=== PATIENT | female | born 1950 | race Caucasian/White ===

== ENCOUNTER → 2016-12-29 | Outpatient (CLI) | payer MEDICARE, OTHER ==
--- NOTE | 2016-12-29 11:06 | MR ---
EXAMINATION TYPE: MR thoracic spine wo con DATE OF EXAM: 12/29/2016 10:05 AM COMPARISON: NONE HISTORY: Tsp pain Standard multiplanar, multisequence MRI departmental protocol Multiplanar, multisequence images of the thoracic spine were acquired. Diffusion weighted imaging was performed. FINDINGS: There is a severe scoliotic curvature of the spine. There is a large thoracic aortic aneurysm measuring 5.6 x 5.1 cm. I could not exclude a dissection. R eport immediately called to referring clinician. Stat CT chest recommended. There is multilevel severe degenerative disc disease virtually at all levels. At T2-T3 there is foraminal encroachment on the right secondary to hypertrophic changes. At T3-T4 there is bilateral mild foraminal encroachment. No canal stenosis or disc herniation. At T4-T5 severe degenerative disc disease and disc bulging but no focal herniation or canal stenosis. Neural foramina patent. At T5-T9 there is disc bulging but no canal stenosis or focal herniation. At T11-T12 there severe degenerative disc disease and right-sided disc protrusion with facet arthropa thy and severe right-sided foraminal encroachment. Remaining levels demonstrate no definite disc herniation or canal stenosis. Spinal cord demonstrate m aintains normal signal. Hiatal hernia noted. IMPRESSION: 1. Severe multilevel degenerative disc disease with scoliosis. Most marked findings at T11-T12 with r ight-sided paracentral disc protrusion and facet arthropathy and severe right-sided encroachment. 2. Large thoracic aortic aneurysm measuring greater than 5 cm. A dissection is suggested image #5.. S tat CT recommended. Report telephoned to the referring clinician.
== END | disposition home or self-care (01) ==
LOC: RADMRIMAIN 09:11
PROVIDERS: ATTEND Psychiatry & Neurology Pain Medicine
DX: M51.24 Other intervertebral disc displacement, thoracic region (principal); M51.34 Other intervertebral disc degeneration, thoracic region; M46.94 Unspecified inflammatory spondylopathy, thoracic region; M41.9 Scoliosis, unspecified
CPT/HCPCS: 72146

== ENCOUNTER → 2016-12-30 | Outpatient (CLI) | payer MEDICARE, OTHER ==
--- NOTE | 2016-12-30 11:44 | MR ---
EXAMINATION TYPE: MR lumbar spine wo con DATE OF EXAM: 12/30/2016 9:58 AM COMPARISON: 11/13/2010 and 06/15/2009 HISTORY: lumbago TECHNIQUE: T1 and T2 axial and sagittal images of the lumbar spine are submitted. FINDINGS: There is no abnormal signal seen within the visualized spinal cord or paraspinal soft tissu es. There is a severe scoliotic curvature with severe multilevel degenerative disc disease. Distal th oracic aorta measures 5.6 cm. Aortic dissection not excluded. Report is been previously slightly tele phoned to the referring physician. Within the abdomen also suspicion for an aneurysm maximal dimensio n of 4.8 cm. At T12-L1 there is no Canal stenosis. Neural foramina are patent no disc herniation. At L1-2 there is there is a vacuum disc. Central broad-based disc bulging with moderate effacement of thecal sac and facet arthropathy. Bilateral foraminal encroachment noted in mild canal stenosis. At L2-3 there is severe degenerative disc disease with vacuum disc and marked facet arthropathy. Resu lts in bilateral foraminal encroachment greater on the left. Mild disc bulging results in borderline canal stenosis. At L3-4 there is severe degenerative disc disease. Facet arthropathy and disc bulging results in left lateral recess stenosis and severe left-sided foraminal encroachment. There is mild canal stenosis. At L4-5 there is facet arthropathy. There is diffuse circumferential disc bulging and marked hypertro phic changes with moderate to severe bilateral foraminal encroachment and canal stenosis. There is se russel right-sided foraminal encroachment with suspected nerve root impingement. There is severe latera l compression of the thecal sac on the right secondary to the scoliosis and hypertrophic changes. Sig nificant canal stenosis suspected. At L5-S1 there is facet arthropathy and degenerative disc disease. Mild bilateral foraminal encroachm ent. No Canal stenosis. Unilateral pars defect on the left suspected. IMPRESSION: 1. Severe multilevel degenerative disc disease with severe scoliosis. Hypertrophic changes and disc b ulging result in multilevel canal stenosis as discussed above. 2. Significant lateral and anterior canal stenosis L4-5 due to scoliosis and hypertrophic changes wit h distortion of the thecal sac. There is severe right-sided foraminal encroachment and nerve root imp ingement. 3. Disc bulging and hypertrophic changes L3-L4 results in severe left-sided foraminal encroachment an d nerve root impingement. 4. Again noted is a large abdominal and thoracic aortic aneurysm with the greatest measurement within the thorax measuring 5.6 cm. As noted previously dissection is in the differential diagnosis. 5. As noted by thoracic spine MRI at T11-T12 appears to be right lateral disc protrusion or herniatio n with severe facet arthropathy and severe right-sided foraminal encroachment with suspected nerve ro ot impingement.
== END | disposition home or self-care (01) ==
LOC: RADMRIMAIN 09:08
PROVIDERS: ATTEND Psychiatry & Neurology Pain Medicine
DX: M48.06 Spinal stenosis, lumbar region (principal); M51.26 Other intervertebral disc displacement, lumbar region; M51.36 Other intervertebral disc degeneration, lumbar region; M41.9 Scoliosis, unspecified; M51.24 Other intervertebral disc displacement, thoracic region; M46.94 Unspecified inflammatory spondylopathy, thoracic region
CPT/HCPCS: 72148

== ENCOUNTER → 2017-01-01 | Outpatient (CLI) | payer MEDICARE, OTHER ==
[2017-01-01 11:39] LABS: Blood Urea Nitrogen 18 mg/dL (7-17); Non-African American GFR(MDRD) >60 (>60 ml/min/1.73 sqM)
--- NOTE | 2017-01-01 12:30 | CT ---
EXAMINATION TYPE: CT angio thoracic/abd aorta DATE OF EXAM: 01/01/2017 12:15 PM COMPARISON: 06/01/2012 HISTORY: Aortic Aneurysm CT DLP: 760 mGycm Automated exposure control for dose reduction was used. TECHNIQUE: Performed with IV Contrast, patient injected with 80 mL of Omnipaque 350. . FINDINGS: The ascending thoracic aorta at the level of the main pulmonary artery is 3.5 cm. Main pulmonary eliza ry bifurcation is 2.4 cm. Aortic arch transverse dimension is 3.0 cm the descending thoracic aortic a neurysm is evident with some slight prominence within the mid to distal descending thoracic aorta wit h the AP diameter of 0.2 cm is somewhat tortuous and measures 5.2 AP by 5.3 cm transverse above the d iaphragm. Below the diaphragm there is tortuosity within the AP diameter in the midportion 2.7 cm. Th is tapers to the bifurcation. The abdominal aorta just below the celiac axis measures 2.2 cm. Common iliac vessels are normal. Vascular calcifications within the iliac vessels. Urinary bladder is visualized is normal. Fecal debris is within the colon. There may be some involuti ng cyst on the left ovary. IMPRESSION: 1. ASCENDING THORACIC AORTIC ANEURYSM. 2. DESCENDING THORACIC AORTIC ANEURYSM ABOVE THE DIAPHRAGM. 3. FUSIFORM PROMINENCE OF THE DISTAL ABDOMINAL AORTA. 4. ECTASIA WAS PRESENT PREVIOUSLY AND TORTUOSITY IS PRESENT PREVIOUSLY. THE THORACIC AORTIC ANEURYSM AND ABDOMINAL AORTIC ANEURYSM ARE INTERVAL FINDINGS FROM PRIOR STUDY..
== END | disposition home or self-care (01) ==
LOC: RADCTMAIN 10:41
PROVIDERS: ATTEND Psychiatry & Neurology Neurology
DX: I71.4 Abdominal aortic aneurysm, without rupture (principal); I71.2 Thoracic aortic aneurysm, without rupture; I77.811 Abdominal aortic ectasia
CPT/HCPCS: 82565; 84520; 75635; 71275; 36415; Q9967

== ENCOUNTER → 2017-03-11 | Outpatient (CLI) | payer MEDICARE, OTHER ==
[2017-03-11 12:47] LABS: Blood Urea Nitrogen 21 mg/dL (7-17); Non-African American GFR(MDRD) >60 (>60 ml/min/1.73 sqM)
--- NOTE | 2017-03-11 14:21 | CT ---
EXAMINATION TYPE: CT chest w con DATE OF EXAM: 03/11/2017 2:03 PM COMPARISON: CT aorta January 01, 2017. Recent chest x-ray March 04, 2017 HISTORY: Severe Chronic Obstructive Disease, recent abnormal chest x-ray. CT DLP: 221 mGycm. Automated Exposure Control for Dose Reduction was Utilized. TECHNIQUE: CT scan of the thorax is performed following with IV Contrast, patient injected with 80 m L of Omnipaque 300. FINDINGS: LUNGS: Moderate to severe underlying emphysematous changes redemonstrated. There is 2.5 x 1.6 cm righ t upper lobe nodule enlarging in size from prior exam measuring 1.4 x 1.0 cm where it was not reporte d. No pleural effusion or pneumothorax is seen bilaterally. MEDIASTINUM: There are no greater than 1 cm hilar or mediastinal lymph nodes. No cardiomegaly or pe ricardial effusion is seen. Coronary artery calcification is present. There is persistent ectasia an d aneurysmal change to the aorta. Ascending aorta measures up to 3.5 cm in diameter on axial image 26 felt stable. Ascending aorta is larger measuring up to 4.4 cm transversely on axial image 29, felt s table with anterior eccentric noncalcified plaque redemonstrated. Aorta just above diaphragm measures 5.4 x 5.1 cm on axial image 44 with anterior eccentric noncalcified plaque redemonstrated felt stabl e. OTHER: There is anterior fusion plate in the lower cervical spine extending through upper thoracic le vels redemonstrated. There is underlying S-shaped scoliosis most prominent in the visualized lumbar s pine redemonstrated. Marked spurring and disc space narrowing with sclerosis right T11-T12 level is r edemonstrated. Ectatic course to the visualized abdominal aorta is redemonstrated and felt stable. IMPRESSION: Moderate to severe emphysematous change with enlarging right upper lobe peripheral nodule strongly suspicious for neoplasm. Consider imaging guided biopsy and/or PET CT confirmation. Stable aortic aneurysm noted.
== END | disposition home or self-care (01) ==
LOC: RADCTMAIN 12:09
PROVIDERS: ATTEND Internal Medicine Critical Care Medicine
DX: J43.9 Emphysema, unspecified (principal); I71.2 Thoracic aortic aneurysm, without rupture; R91.1 Solitary pulmonary nodule
CPT/HCPCS: 82565; 84520; 71260; 36415; Q9967

== ENCOUNTER 2017-03-16 11:24 | Inpatient (IN) | payer MEDICARE, OTHER ==
[2017-03-16] MEDS ORDERED: IPRATROPIUM-ALBUTEROL 3 ML NEB INHALATION STA (11:43)
[2017-03-16] MEDS ORDERED: methylPREDNISolone SOD SUCCI 125 MG/2 ML VIAL IV STA (11:43)
[2017-03-16] MEDS ORDERED: MAGNESIUM SULFATE-D5W PMX 1 GM in DEXTROSE/WATER 1 100ML.BAG IVPB STA (11:43)
[2017-03-16 12:02] LABS: Basophils # (A) 0.1 k/uL (0-0.2); Basophils % (A) 1 %; CH 28.2; CHCM 32.5; Eosinophils # (A) 0.2 k/uL (0-0.7); Eosinophils % (A) 2 %; HCT 41.2 % (34.0-46.0); HGB 13.9 gm/dL (11.4-16.0); Luc # (Auto) 0.31; Luc % (Auto) 3; Lymphocytes # (A) 1.8 k/uL (1.0-4.8); Lymphocytes % (A) 16 %; MCH 29.4 pg (25.0-35.0); MCHC 33.7 g/dL (31.0-37.0); MCV 87.5 fL (80.0-100.0); Mean Platelet Volume 7.5; Monocytes # (A) 0.9 k/uL (0-1.0); Monocytes % (A) 8 %; Neutrophils # (A) 8.2 k/uL (1.3-7.7); Neutrophils % (A) 72 %; RBC 4.71 m/uL (3.80-5.40); RDW 13.5 % (11.5-15.5); WBC 11.4 k/uL (3.8-10.6); WBC (Perox) 11.18
--- NOTE | 2017-03-16 12:11 | ED ---
SOB HPI - General Chief Complaint: Shortness of Breath Stated Complaint: TIFF, HEADACHE Time Seen by Provider: 03/16/17 11:28 Source: patient, family, RN notes reviewed Mode of arrival: ambulatory Limitations: no limitations - History of Present Illness Initial Comments: This is a 67-year-old female who was a long-time smoker who apparently was just diagnosed recently with COPD who states she had the onset this morning about an hour or so prior to admission of severe shortness of breath though she states that earlier today she had exertional dyspnea. She has slight cough she denies any overt fevers chills sweats or chest pain. No nausea no vomiting. Her home medication did not work. He was brought in by family for evaluation. MD Complaint: shortness of breath, cough - Related Data Home Medications Medication Instructions Recorded Confirmed Albuterol Nebulized [Ventolin 2.5 mg INHALATION RT-Q4H PRN 03/16/17 03/16/17 Nebulized] Albuterol Sulfate [Proair Hfa] 2 puff INHALATION RT-Q4H PRN 03/16/17 03/16/17 Atorvastatin Calcium [Lipitor] 40 mg PO HS 03/16/17 03/16/17 Fluticasone Propionate [Flovent 2 puff INHALATION RT-BID 03/16/17 03/16/17 Hfa 220MCG] Metoprolol Succinate (ER) [Toprol 25 mg PO DAILY 03/16/17 03/16/17 Xl] diphenhydrAMINE HCL [Benadryl] 50 mg PO TID 03/16/17 03/16/17 oxyCODONE HCL 7.5 mg PO BID 03/16/17 03/16/17 oxyCODONE HCL [OxyCONTIN] 30 mg PO BID 03/16/17 03/16/17 Allergies Allergy/AdvReac Type Severity Reaction Status Date / Time ciprofloxacin [From Cipro] Allergy Unknown Verified 03/16/17 12:55 Penicillins Allergy Unknown Verified 03/16/17 12:50 STEROIDS Allergy Unknown Uncoded 03/16/17 12:55 Review of Systems ROS Statement: Those systems with pertinent positive or pertinent negative responses have been documented in the HPI. ROS Other: All systems not noted in ROS Statement are negative. Past Medical History Past Medical History: Atrial Fibrillation, Asthma, COPD, Osteoarthritis (OA) History of Any Multi-Drug Resistant Organisms: None Reported Past Surgical History: Orthopedic Surgery Additional Past Surgical History / Comment(s): neck, cardiac ablation Past Psychological History: No Psychological Hx Reported Smoking Status: Current every day smoker General Exam - General Exam Comments Initial Comments: This is a well-developed frail-appearing female in obvious respiratory distress. She is in the tripod position. Limitations: no limitations General appearance: alert, anxious, in distress Head exam: Present: atraumatic, normocephalic, normal inspection Eye exam: Present: normal appearance, PERRL, EOMI. Absent: scleral icterus, conjunctival injection, periorbital swelling ENT exam: Present: mucous membranes dry Neck exam: Present: normal inspection. Absent: tenderness, meningismus, lymphadenopathy Respiratory exam: Present: accessory muscle use (Very minimal air movement. A few scattered audible wheezes), decreased breath sounds. Absent: respiratory distress, wheezes, rales, rhonchi, stridor Cardiovascular Exam: Present: normal rhythm, tachycardia. Absent: systolic murmur, diastolic murmur, rubs, gallop, clicks GI/Abdominal exam: Present: soft, normal bowel sounds. Absent: distended, tenderness, guarding, rebound, rigid Extremities exam: Present: normal inspection, full ROM, normal capillary refill. Absent: tenderness, pedal edema, joint swelling, calf tenderness Back exam: Present: other (Patient does demonstrate kyphosis) Neurological exam: Present: alert, oriented X3, CN II-XII intact Psychiatric exam: Present: normal affect, normal mood Skin exam: Present: warm, dry, intact, other (Some evidence of acral cyanosis). Absent: rash Course Vital Signs 03/16/17 03/16/17 03/16/17 11:30 11:35 11:47 Temperature 97.2 F L Pulse Rate 109 H 92 Respiratory 36 H 36 H Rate Blood Pressure 150/89 O2 Sat by Pulse 79 L Oximetry 03/16/17 03/16/17 03/16/17 11:53 12:01 12:26 Temperature Pulse Rate 99 95 89 Respiratory 34 H 32 H Rate Blood Pressure 144/74 145/79 O2 Sat by Pulse 98 97 Oximetry 03/16/17 03/16/17 12:56 13:39 Temperature Pulse Rate 78 78 Respiratory 20 20 Rate Blood Pressure 154/81 117/70 O2 Sat by Pulse 98 98 Oximetry - Reevaluation(s) Reevaluation #1: 03/16/17 13:49 First reevaluation patient revealed some increased aeration in the left lung field she still dyspneic all over. Reevaluation #2: 03/16/17 13:49 Second reevaluation patient was feeling improved though she did develop some anterior chest wall pain. This was reproducible with palpation. Her lung sounds had improved somewhat more from the previous exam. Medical Decision Making - Medical Decision Making I did discuss the findings with the patient and family members. Patient will require admission for continued inpatient treatment. I did discuss case with patient family and with the admitting physician. Dr. June will be consulted also. - Lab Data Result diagrams: 03/16/17 11:40 03/16/17 11:40 Lab Results 03/16/17 03/16/17 03/16/17 Range/Units 11:40 11:40 11:40 WBC 11.4 H (3.8-10.6) k/uL RBC 4.71 (3.80-5.40) m/uL Hgb 13.9 (11.4-16.0) gm/dL Hct 41.2 (34.0-46.0) % MCV 87.5 (80.0-100.0) fL MCH 29.4 (25.0-35.0) pg MCHC 33.7 (31.0-37.0) g/dL RDW 13.5 (11.5-15.5) % Plt Count 268 (150-450) k/uL Neutrophils % 72 % Lymphocytes % 16 % Monocytes % 8 % Eosinophils % 2 % Basophils % 1 % Neutrophils # 8.2 H (1.3-7.7) k/uL Lymphocytes # 1.8 (1.0-4.8) k/uL Monocytes # 0.9 (0-1.0) k/uL Eosinophils # 0.2 (0-0.7) k/uL Basophils # 0.1 (0-0.2) k/uL PT (9.0-12.0) sec INR (<1.1) APTT (22.0-30.0) sec Sodium 138 (137-145) mmol/L Potassium 3.9 (3.5-5.1) mmol/L Chloride 97 L (98-107) mmol/L Carbon Dioxide 30 (22-30) mmol/L Anion Gap 11 mmol/L BUN 21 H (7-17) mg/dL Creatinine 0.84 (0.52-1.04) mg/dL Est GFR (MDRD) Af Amer >60 (>60 ml/min/1.73 sqM) Est GFR (MDRD) Non-Af >60 (>60 ml/min/1.73 sqM) Glucose 161 H (74-99) mg/dL Calcium 9.5 (8.4-10.2) mg/dL Magnesium 2.1 (1.6-2.3) mg/dL Total Bilirubin 0.6 (0.2-1.3) mg/dL AST 34 (14-36) U/L ALT 33 (9-52) U/L Alkaline Phosphatase 190 H (38-126) U/L Total Creatine Kinase 101 (30-135) U/L CK-MB (CK-2) 3.2 H* (0.0-2.4) ng/mL CK-MB (CK-2) Rel Index 3.2 Troponin I <0.012 (0.000-0.034) ng/mL NT-Pro-B Natriuret Pep pg/mL Total Protein 7.5 (6.3-8.2) g/dL Albumin 4.2 (3.5-5.0) g/dL 03/16/17 03/16/17 Range/Units 11:40 11:40 WBC (3.8-10.6) k/uL RBC (3.80-5.40) m/uL Hgb (11.4-16.0) gm/dL Hct (34.0-46.0) % MCV (80.0-100.0) fL MCH (25.0-35.0) pg MCHC (31.0-37.0) g/dL RDW (11.5-15.5) % Plt Count (150-450) k/uL Neutrophils % % Lymphocytes % % Monocytes % % Eosinophils % % Basophils % % Neutrophils # (1.3-7.7) k/uL Lymphocytes # (1.0-4.8) k/uL Monocytes # (0-1.0) k/uL Eosinophils # (0-0.7) k/uL Basophils # (0-0.2) k/uL PT 10.3 (9.0-12.0) sec INR 1.0 (<1.1) APTT 28.5 (22.0-30.0) sec Sodium (137-145) mmol/L Potassium (3.5-5.1) mmol/L Chloride (98-107) mmol/L Carbon Dioxide (22-30) mmol/L Anion Gap mmol/L BUN (7-17) mg/dL Creatinine (0.52-1.04) mg/dL Est GFR (MDRD) Af Amer (>60 ml/min/1.73 sqM) Est GFR (MDRD) Non-Af (>60 ml/min/1.73 sqM) Glucose (74-99) mg/dL Calcium (8.4-10.2) mg/dL Magnesium (1.6-2.3) mg/dL Total Bilirubin (0.2-1.3) mg/dL AST (14-36) U/L ALT (9-52) U/L Alkaline Phosphatase (38-126) U/L Total Creatine Kinase (30-135) U/L CK-MB (CK-2) (0.0-2.4) ng/mL CK-MB (CK-2) Rel Index Troponin I (0.000-0.034) ng/mL NT-Pro-B Natriuret Pep 721 pg/mL Total Protein (6.3-8.2) g/dL Albumin (3.5-5.0) g/dL - EKG Data -: EKG Interpreted by Co EKG shows normal: sinus rhythm (Sinus rhythm of 94. Interval 138 QRS duration 76 daily since QTC of 348/[address]-T wave changes. Some artifact is present) - Radiology Data Radiology results: report reviewed (Evidence of COPD with a lung nodule that was previously noticed.), image reviewed Critical Care Time Critical Care Time: Yes Critical Care Time: 35 minutes of critical care time which includes initial presentation with history physical labs x-rays. Reevaluation the patient on several occasions. Discussion with the family and the patient regarding the findings. Discussion with the admitting physician. Admission orders and documentation of the same. Also review of old charting that was available. Disposition Clinical Impression: Acute exacerbation of chronic obstructive airways disease, Adult respiratory distress syndrome, Chest wall pain, Dehydration, Lung nodule Disposition: ADMITTED IP TO THIS [facility] Condition: Serious Referrals: Yahaira Kessler DO [Primary Care Provider] - 1-2 days
[2017-03-16 12:14] LABS: Partial Thromboplastin Time 28.5 sec (22.0-30.0); Prothrombin Time 10.3 sec (9.0-12.0)
[2017-03-16 12:17] LABS: ALT 33 U/L (9-52); AST 34 U/L (14-36); Alkaline Phosphatase 190 U/L (38-126); Anion Gap 11 mmol/L; Blood Urea Nitrogen 21 mg/dL (7-17); Calcium 9.5 mg/dL (8.4-10.2); Carbon Dioxide 30 mmol/L (22-30); Chloride 97 mmol/L (98-107); Glucose 161 mg/dL (74-99); Magnesium 2.1 mg/dL (1.6-2.3); Non-African American GFR(MDRD) >60 (>60 ml/min/1.73 sqM); Potassium 3.9 mmol/L (3.5-5.1); Sodium 138 mmol/L (137-145); Total Bilirubin 0.6 mg/dL (0.2-1.3); Total Protein 7.5 g/dL (6.3-8.2)
[2017-03-16 12:25] LABS: Creatine Kinase 101 U/L (30-135)
--- NOTE | 2017-03-16 12:28 | XR ---
EXAMINATION TYPE: XR chest 2V DATE OF EXAM: 03/16/2017 12:17 PM COMPARISON: 08/10/2010 and 03/04/2017 HISTORY: 67-year-old female with COPD TECHNIQUE: AP and lateral views FINDINGS: ACDF hardware. The heart is normal size. Elongation of the thoracic aorta. Diffuse interstitial promi nence and hyperinflation. No consolidation or pleural effusion. Redemonstrated 2.8 cm peripheral righ t midlung pulmonary nodule. IMPRESSION: COPD and redemonstrated peripheral right midlung nodule, suspected neoplasm. No definite acute proces s.
[2017-03-16 12:39] LABS: Troponin I <0.012 ng/mL (0.000-0.034)
[2017-03-16 12:45] LABS: Creatine Kinase MB 3.2 ng/mL (0.0-2.4)
[2017-03-16] MEDS ORDERED: KETOROLAC 30 MG/ML 1 ML VIAL IVP STA (13:48)
[2017-03-16] MEDS ORDERED: AZITHROMYCIN 500 MG in SODIUM CHLORIDE 0.9% 250 ML IVPB STA (13:58)
[2017-03-16] MEDS: SODIUM CHLORIDE 0.9% 1,000 ML IV SCH (14:12)
[2017-03-16] MEDS ORDERED: IPRATROPIUM-ALBUTEROL 3 ML NEB INHALATION PRN (15:21)
--- NOTE | 2017-03-16 15:51 | P.HPIM ---
History of Present Illness H&P Date: 03/16/17 Chief Complaint: Shortness of breath This is a 67-year-old female, patient of [facility]. She has a known past medical history of COPD, atrial fibrillation with previous cardiac ablation, rheumatoid arthritis, hyperlipidemia, TIA and one episode of kidney failure. Patient presents to the emergency room complaining of worsening shortness of breath. Patient reports a sudden onset of shortness of breath starting today. Patient reports that the shortness of breath and did come on suddenly. She does admit to having a productive cough at times. Denies any fevers chills or sweats. Denies any chest pain. Denies any nausea or vomiting. Denies any bowel movement changes or urinary symptoms. She presents to the emergency room and was found to have a pulse ox of 79% and a heart rate of 109 and respiratory rate of 36. She was placed on a Ventimask she is currently now satting at 98%. White count elevated 11.4. Chest x-ray showing COPD and a right midlung nodule suspected neoplasm. There is no acute changes. EKG showing normal sinus rhythm. Patient has been started on IV Solu-Medrol for acute COPD exacerbation as well as azithromycin for acute bronchitis. Troponin service has been consulted. She's also been placed on nebulizer treatments. Patient does have prolonged history of smoking. She is trying to quit. She is down to about 6 cigarettes a day. Patient is noted to have severe ALLERGIES to penicillin Cipro and prednisone. She reports that these 3 medications caused tongue swelling. 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 History of Any Multi-Drug Resistant Organisms: None Reported Past Surgical History: Orthopedic Surgery Additional Past Surgical History / Comment(s): neck, cardiac ablation Past Psychological History: No Psychological Hx Reported Smoking Status: Current every day smoker Medications and Allergies Home Medications Medication Instructions Recorded Confirmed Type Albuterol Nebulized [Ventolin 2.5 mg INHALATION RT-Q4H PRN 03/16/17 03/16/17 History Nebulized] Albuterol Sulfate [Proair Hfa] 2 puff INHALATION RT-Q4H PRN 03/16/17 03/16/17 History Atorvastatin Calcium [Lipitor] 40 mg PO HS 03/16/17 03/16/17 History Fluticasone Propionate [Flovent 2 puff INHALATION RT-BID 03/16/17 03/16/17 History Hfa 220MCG] Metoprolol Succinate (ER) [Toprol 25 mg PO DAILY 03/16/17 03/16/17 History Xl] diphenhydrAMINE HCL [Benadryl] 50 mg PO TID 03/16/17 03/16/17 History oxyCODONE HCL 7.5 mg PO BID 03/16/17 03/16/17 History oxyCODONE HCL [OxyCONTIN] 30 mg PO BID 03/16/17 03/16/17 History Allergies Allergy/AdvReac Type Severity Reaction Status Date / Time ciprofloxacin [From Cipro] Allergy Unknown Verified 03/16/17 12:55 Penicillins Allergy Unknown Verified 03/16/17 12:50 STEROIDS Allergy Unknown Uncoded 03/16/17 12:55 Physical Exam Vitals: Vital Signs Temp Pulse Resp BP Pulse Ox 03/16/17 15:27 98 F 79 22 102/66 99 Gen. cachectic appearance Head normocephalic Neck supple Lungs tight and diminished bilaterally. No wheezing or crackles Heart regular rate and rhythm S1-S2, no rub or gallop Abdomen is soft nontender nondistended positive bowel sounds no hepatosplenomegaly Extremities no edema Neuro alert and orientated to 3 Back: Lump noted along the lumbar spine on the right that is tender with palpation Results CBC & Chem 7: 03/16/17 11:40 03/16/17 11:40 Assessment and Plan Plan: 1. Acute hypoxic respiratory failure secondary to COPD exacerbation. Patient did have sudden shortness of breath will check d-dimer is elevated need to proceed with PE workup 2. Acute COPD exacerbation: Patient placed on nebulizer treatments and IV Solu- Medrol. Pulmonary service consulted 3. Acute tracheobronchitis: No pneumonia noted on chest x-ray. Patient currently on azithromycin. Patient has penicillin and Cipro ALLERGY 4. Right midlung nodule noted on chest x-ray. Suspected neoplasm. Pulmonary service consulted 5. Nicotine dependence: Patient placed on nicotine patch. Discussed smoking cessation for greater than 3 minutes. 6. History of rheumatoid arthritis resume patient's pain medications. 7. History of atrial fibrillation status post cardiac ablation 8. History of TIA 9. Hyperlipidemia continue statin 10. Mild dehydration noted on admission. Patient receiving IV fluids 11. Essential hypertension continue with metoprolol 12. Lower back pain and lump along the right side of her spine. We'll check lumbar spine x-ray GI prophylaxis Pepcid and DVT prophylaxis subcu heparin Time with Patient: Greater than 30 (Greater than 50% of the total time spent in counseling and coordination of care.I performed an examination of the patient and discussed their management with the physician Broth Setter. I have reviewed the Physician Broth Setter's notes and agree with the documented findings and plan of care)
[2017-03-16] MEDS: NICOTINE 14MG/24HR PATCH TRANSDERM SCH (17:13)
[2017-03-16] MEDS: methylPREDNISolone SOD SUCCI 125 MG/2 ML VIAL IV SCH ×2 (17:14→23:13)
[2017-03-16] MEDS: diphenhydrAMINE 50 MG CAP PO SCH ×2 (17:14→20:43)
[2017-03-16] MEDS: IPRATROPIUM-ALBUTEROL 3 ML NEB INHALATION SCH ×2 (18:59→19:03)
[2017-03-16 19:03] LABS: Hepatitis C Virus IgG Index 1.88
[2017-03-16 19:04] LABS: Hepatitis C Virus IgG Ab Reactive (Negative)
--- NOTE | 2017-03-16 20:15 | XR ---
EXAMINATION TYPE: XR lumbar spine 2 or 3V DATE OF EXAM: 03/16/2017 8:02 PM CLINICAL HISTORY: Low back pain, abnormal physical exam. TECHNIQUE: Frontal and lateral images of the lumbar spine are obtained. COMPARISON: CT aorta January 01, 2017. FINDINGS: Osseous structures are demineralized which is noted to lower radiographic sensitivity. The re are 5 lumbar type vertebral bodies identified. The lumbar spine redemonstrates marked dextroconve x scoliosis centered at L3 level. There is loss of normal lumbar lordosis on lateral images There is moderate height loss involving left L3 vertebra redemonstrated. There is advanced disc space narrowi ng with vacuum disc phenomenon and spurring throughout the lumbar spine. Calcifications throughout th e mid abdomen are consistent with pancreatic calcifications related to chronic pancreatitis. Surgical clips overlie the left pelvis. IMPRESSION: Demineralization with prominent scoliosis and advanced multilevel degenerative changes al l redemonstrated, no significant change from recent CT.
[2017-03-16] MEDS: ATORVASTATIN 40 MG TAB PO SCH (20:43)
[2017-03-16] MEDS: HEPARIN SODIUM,PORCINE 5,000 UNIT/ML 1 ML VIAL SQ SCH (20:44)
[2017-03-16] MEDS: oxyCODONE ER 15 MG TAB.ER.12H PO SCH (20:44)
[2017-03-17] MEDS: SODIUM CHLORIDE 0.9% 1,000 ML IV SCH (03:48)
[2017-03-17 06:25] LABS: Glucose,Whole Blood 128 mg/dL (75-99)
[2017-03-17 06:40] LABS: Basophils % (A) 0 %; CH 27.7; CHCM 31.4; Eosinophils % (A) 0 %; HDW 2.37; HGB 11.8 gm/dL (11.4-16.0); Luc # (Auto) 0.07; Luc % (Auto) 1; Lymphocytes # (A) 0.8 k/uL (1.0-4.8); Lymphocytes % (A) 9 %; MCH 28.2 pg (25.0-35.0); MCHC 31.8 g/dL (31.0-37.0); MCV 88.5 fL (80.0-100.0); Mean Platelet Volume 7.7; Monocytes # (A) 0.2 k/uL (0-1.0); Monocytes % (A) 3 %; Neutrophils # (A) 7.9 k/uL (1.3-7.7); Neutrophils % (A) 88 %; RBC 4.18 m/uL (3.80-5.40); RDW 13.6 % (11.5-15.5)
[2017-03-17] MEDS: methylPREDNISolone SOD SUCCI 125 MG/2 ML VIAL IV SCH ×4 (06:55→22:43)
[2017-03-17 07:03] LABS: ALT 29 U/L (9-52); AST 23 U/L (14-36); Alkaline Phosphatase 149 U/L (38-126); Anion Gap 9 mmol/L; Blood Urea Nitrogen 25 mg/dL (7-17); Calcium 8.9 mg/dL (8.4-10.2); Carbon Dioxide 22 mmol/L (22-30); Chloride 104 mmol/L (98-107); Glucose 128 mg/dL (74-99); Magnesium 2.4 mg/dL (1.6-2.3); Non-African American GFR(MDRD) >60 (>60 ml/min/1.73 sqM); Sodium 135 mmol/L (137-145); Total Bilirubin 0.4 mg/dL (0.2-1.3); Total Protein 6.1 g/dL (6.3-8.2)
[2017-03-17] MEDS: IPRATROPIUM-ALBUTEROL 3 ML NEB INHALATION SCH ×5 (07:20→19:53)
[2017-03-17] MEDS: HEPARIN SODIUM,PORCINE 5,000 UNIT/ML 1 ML VIAL SQ SCH ×2 (08:15→20:59)
[2017-03-17] MEDS: FAMOTIDINE 20 MG TAB PO SCH (08:15)
[2017-03-17] MEDS: oxyCODONE ER 15 MG TAB.ER.12H PO SCH ×2 (08:16→21:02)
[2017-03-17] MEDS: diphenhydrAMINE 50 MG CAP PO SCH ×3 (08:18→21:00)
[2017-03-17] MEDS: METOPROLOL SUCCINATE (ER) 25 MG TAB.ER.24H PO SCH (08:18)
[2017-03-17 12:07] LABS: Glucose,Whole Blood 187 mg/dL (75-99)
--- NOTE | 2017-03-17 12:21 | P.PN ---
Subjective Principal diagnosis: Exacerbation of chronic obstructive pulmonary disease Patient is a 67-year-old female was known history of advanced COPD and lung mass will presented to [facility] was worsening shortness of breath admitted to telemetry floor she was started on IV antibiotic IV steroids and inhaled bronchodilators she improved significantly since yesterday. Objective - Vital Signs Vital signs: Vital Signs Temp 96.8 F L 03/17/17 11:16 Pulse 64 03/17/17 11:18 Resp 24 03/17/17 11:18 BP 137/77 03/17/17 11:16 Pulse Ox 93 L 03/17/17 11:16 Intake & Output 03/16/17 03/17/17 03/17/17 18:59 06:59 18:59 Intake Total 80 1580 830 Balance 80 1580 830 Weight 36.287 kg 37 kg Intake: IV 1280 400 Sodium Chloride 0.9% 1, 1280 400 000 ml @ 80 mls/hr IV . [id number] [facility] Rx#:[id number] Intake, IV Titration 80 250 Amount Azithromycin 500 mg In 250 Sodium Chloride 0.9% 250 ml @ 125 mls/hr IVPB ONCE STA Rx#:[id number] Sodium Chloride 0.9% 1, 80 000 ml @ 80 mls/hr IV . [id number] [facility] Rx#:[id number] Oral 300 180 Other: Voiding Method Toilet Toilet - Exam In general patient is alert and oriented 3 in no apparent distress HEENT head normocephalic and atraumatic Neck is supple no JVD no goiter no lymphadenopathy Chest exam reveals a scattered crackles bilaterally no wheezing Cardiac exam reveals regular heart sounds no murmurs Abdomen is soft nontender no organomegaly Extremity exam reveals no edema no cyanosis or clubbing - Labs CBC & Chem 7: 03/17/17 05:51 03/17/17 05:51 Labs: Abnormal Lab Results - Last 24 Hours (Table) 03/16/17 03/17/17 03/17/17 Range/Units 15:40 05:51 05:51 Neutrophils # 7.9 H (1.3-7.7) k/uL Lymphocytes # 0.8 L (1.0-4.8) k/uL D-Dimer 1.50 H (<0.60) mg/L FEU Sodium 135 L (137-145) mmol/L BUN 25 H (7-17) mg/dL Glucose 128 H (74-99) mg/dL POC Glucose (mg/dL) (75-99) mg/dL Magnesium 2.4 H (1.6-2.3) mg/dL Alkaline Phosphatase 149 H (38-126) U/L Total Protein 6.1 L (6.3-8.2) g/dL Albumin 3.3 L (3.5-5.0) g/dL 03/17/17 03/17/17 Range/Units 06:24 12:05 Neutrophils # (1.3-7.7) k/uL Lymphocytes # (1.0-4.8) k/uL D-Dimer (<0.60) mg/L FEU Sodium (137-145) mmol/L BUN (7-17) mg/dL Glucose (74-99) mg/dL POC Glucose (mg/dL) 128 H 187 H (75-99) mg/dL Magnesium (1.6-2.3) mg/dL Alkaline Phosphatase (38-126) U/L Total Protein (6.3-8.2) g/dL Albumin (3.5-5.0) g/dL Assessment and Plan Plan: 1. Acute hypoxic respiratory failure secondary to COPD exacerbation. Patient had significant improvement since yesterday, also d-dimer was elevated last night, her significant improvement does not warrant any further evaluation for pulmonary embolism, this was discussed was pulmonary on the case. 2. Acute COPD exacerbation: Patient placed on nebulizer treatments and IV Solu- Medrol. Pulmonary service consulted 3. Acute tracheobronchitis: No pneumonia noted on chest x-ray. Patient currently on azithromycin. Patient has penicillin and Cipro ALLERGY 4. Right midlung nodule noted on chest x-ray. Suspected neoplasm. Pulmonary service consulted, may proceed with percutaneous needle biopsy once stable 5. Nicotine dependence: Patient placed on nicotine patch. Discussed smoking cessation for greater than 3 minutes. 6. History of rheumatoid arthritis resume patient's pain medications. 7. History of atrial fibrillation status post cardiac ablation 8. History of TIA 9. Hyperlipidemia continue statin 10. Mild dehydration noted on admission. Patient receiving IV fluids 11. Essential hypertension continue with metoprolol 12. Lower back pain and lump along the right side of her spine. We'll check lumbar spine x-ray
--- NOTE | 2017-03-17 12:47 | P.CNPUL ---
History of Present Illness Consult date: 03/17/17 Reason for consult: COPD Chief complaint: Shortness of breath History of present illness: 77-year-old female patient, known to me due to her advanced COPD, tobacco smoking and increase in the right upper lobe speculated mass that was identified on the CAT scan of the chest. The patient came in to the hospital yesterday because of increased shortness of breath. She is a chronic cigarette smoker in she continues to smoke cigarettes on a daily basis. She became progressively shortness of breath and she was having congested cough chest tightness and wheezing. No fever or chills. No chest pain. No nausea. No vomiting. She was briefly placed on a BiPAP at a pressure of 10 over 5 cm of water and currently she is off the BiPAP and utilizing a simple face mask with 40% FiO2. She is not wearing her mask all the time her pulse ox is above 88%. Note that the patient has very poor lung capacity and based on the most recent measurement of her lung function, the patient had demonstrated significant drop in her lung function over the past 5 years with her FEV1 has dropped from 64% down to 31% and this is consistent with severe obstructive airway disease. I counseled this patient for smoking cessation. I offered her nicotine patches. She was restarted on Spiriva 1 inhalation a day. She was also asked to stay on a maintenance of Symbicort 160/4.52 puffs twice a day. As for the CAT scan of the chest, I saw an abnormality in the patient's chest x-ray and I ordered a computed tomography scan of the chest that showed moderate to severe emphysematous change bilaterally and there was a 2.5 x 1.6 cm right upper lobe nodule enlarging from previous evaluations and back in December 2016 this was measuring around 1.4 x 1.0 cm in size. As such there is a high suspicion that this may be cancerous. The patient also has an ascending aorta measuring 4.4 cm transversely and aorta just above the diaphragm measuring 5.4 x 5.1 cm in size. The patient has also markedly spurting and this narrowing with sclerosis of the level of T11 and T12 Review of Systems A 12 point review of system was done and the positive findings are almost above history of present illness. The patient is cachectic and she has abnormal weight loss. She is a chronic smoker. As mentioned she has a thoracic aortic aneurysm. She has chronic back pain with scoliosis of the spine and degenerative lumbar disc disease. Past Medical History Past Medical History: Atrial Fibrillation, COPD, Osteoarthritis (OA) Additional Past Medical History / Comment(s): Advanced COPD, right upper lobe mass measuring 2.5 x 1.6 cm in size, degenerative lumbar disc disease, scoliosis of the lumbar spine, history of TIA, aneurysm of the thoracic aorta, hypertension, hyperlipidemia, chronic pain, rheumatoid arthritis, smoker, cachexia with ongoing weight loss, atrial fibrillation postcardiac ablation History of Any Multi-Drug Resistant Organisms: None Reported Past Surgical History: Orthopedic Surgery Additional Past Surgical History / Comment(s): cardiac ablation, previous cervical spine fusion and hernia repair Past Psychological History: No Psychological Hx Reported Smoking Status: Current every day smoker Medications and Allergies Home Medications Medication Instructions Recorded Confirmed Type Albuterol Nebulized [Ventolin 2.5 mg INHALATION RT-Q4H PRN 03/16/17 03/16/17 History Nebulized] Albuterol Sulfate [Proair Hfa] 2 puff INHALATION RT-Q4H PRN 03/16/17 03/16/17 History Atorvastatin Calcium [Lipitor] 40 mg PO HS 03/16/17 03/16/17 History Fluticasone Propionate [Flovent 2 puff INHALATION RT-BID 03/16/17 03/16/17 History Hfa 220MCG] Metoprolol Succinate (ER) [Toprol 25 mg PO DAILY 03/16/17 03/16/17 History Xl] diphenhydrAMINE HCL [Benadryl] 50 mg PO TID 03/16/17 03/16/17 History oxyCODONE HCL 7.5 mg PO BID 03/16/17 03/16/17 History oxyCODONE HCL [OxyCONTIN] 30 mg PO BID 03/16/17 03/16/17 History Allergies Allergy/AdvReac Type Severity Reaction Status Date / Time ciprofloxacin [From Cipro] Allergy Unknown Verified 03/16/17 12:55 Penicillins Allergy Unknown Verified 03/16/17 12:50 STEROIDS Allergy Unknown Uncoded 03/16/17 12:55 Physical Exam Vitals: Vital Signs Temp Pulse Pulse Resp BP BP Pulse Ox 03/17/17 11:18 64 24 03/17/17 11:16 96.8 F L 64 24 137/77 93 L 03/17/17 10:57 92 03/17/17 09:46 96 03/17/17 09:30 96 03/17/17 08:00 96.6 F L 89 22 131/66 90 L 03/17/17 07:21 93 L 03/17/17 04:00 97.6 F 80 16 105/69 97 03/17/17 00:00 97.2 F L 92 20 128/80 93 L 03/16/17 20:00 97.2 F L 89 18 142/79 94 L 03/16/17 19:14 92 03/16/17 19:05 88 03/16/17 16:00 97 F L 79 22 107/63 98 03/16/17 15:27 98 F 79 22 102/66 99 Intake and Output 03/16/17 03/17/17 03/17/17 22:59 06:59 14:59 Intake Total 720 940 830 Balance 720 940 830 Intake: IV 640 640 400 Sodium Chloride 0.9% 1, 640 640 400 000 ml @ 80 mls/hr IV . [id number] [facility] Rx#:[id number] Intake, IV Titration 80 250 Amount Azithromycin 500 mg In 250 Sodium Chloride 0.9% 250 ml @ 125 mls/hr IVPB ONCE STA Rx#:[id number] Sodium Chloride 0.9% 1, 80 000 ml @ 80 mls/hr IV . [id number] [facility] Rx#:[id number] Oral 300 180 Other: Voiding Method Toilet Toilet Weight 36.287 kg 37 kg Cachectic thin frail elderly female patient, nonacute distress. No dizziness and muscle breathing.Head exam was generally normal. There was no scleral icterus or corneal arcus. Mucous membranes were moist.Neck was supple and without jugular venous distension, thyromegaly, or carotid bruits. Carotids were easily palpable bilaterally. There was no adenopathy. Lung sounds are diminished bilaterally along with prolongation of the expiratory phase of breathing and diffuse expiratory wheezes throughout the lung izquierdo.Cardiac exam revealed the PMI to be normally situated and sized. The rhythm was regular and no extrasystoles were noted during several minutes of auscultation. The first and second heart sounds were normal and physiologic splitting of the second heart sound was noted. There were no murmurs, rubs, clicks, or gallops.Abdominal exam revealed normal bowel sounds. The abdomen was soft, non- tender, and without masses, organomegaly, or appreciable enlargement of the abdominal aorta.Examination of the extremities revealed easily palpable radial, femoral and pedal pulses. There was no cyanosis, clubbing or edema. Muscles are thin and the patient is quite cachectic and emaciated. Results - Laboratory Findings CBC and BMP: 03/17/17 05:51 03/17/17 05:51 PT/INR, D-dimer PT 10.3 sec (9.0-12.0) 03/16/17 11:40 INR 1.0 (<1.1) 03/16/17 11:40 D-Dimer 1.50 mg/L FEU (<0.60) H 03/16/17 15:40 Abnormal lab findings: Abnormal Labs 03/16/17 03/17/17 03/17/17 15:40 05:51 05:51 Neutrophils # 7.9 H Lymphocytes # 0.8 L D-Dimer 1.50 H Sodium 135 L BUN 25 H Glucose 128 H POC Glucose (mg/dL) Magnesium 2.4 H Alkaline Phosphatase 149 H Total Protein 6.1 L Albumin 3.3 L 03/17/17 03/17/17 06:24 12:05 Neutrophils # Lymphocytes # D-Dimer Sodium BUN Glucose POC Glucose (mg/dL) 128 H 187 H Magnesium Alkaline Phosphatase Total Protein Albumin - Diagnostic Findings Chest x-ray: image reviewed Assessment and Plan Plan: Assessment 1 severe COPD with an FEV1 of 31% of predicted at baseline 2 acute COPD exacerbation with a chest x-ray showing no acute abnormalities other than a right upper lobe lesion that was seen on previous CAT scan of the chest 3 right upper lobe mass measuring 2.5 x 1.6 cm in size, enlarging in size, spiculated, very much suggestive of underlying lung cancer 4 chronic dyspnea 5 chronic smoker 6 abnormal weight loss 7 aneurysm of the thoracic aorta both transfers and descending 8 hypertension 9 hyperlipidemia 10 scoliosis of the lumbar spine 11 degenerative lumbar disc disease Plan Continue optimizing the acute COPD exacerbation with a combination of bronchodilators and steroids and antibiotics. Discontinue the BiPAP for now as the patient's condition is improved. Monitor the pulse oximetry and a saturation above 90%. Discussed the case with interventional radiology and we are going to recommend a fine-needle aspirate of the right upper lobe mass under CAT scan guidance once the patient's COPD is improved and is more stable. Meanwhile, we'll continue treating the acute COPD exacerbation. Dietary advice was given. Smoking cessation counseling was done. We'll continue to follow. Prognosis poor baseline above-mentioned comorbidities.
[2017-03-17] MEDS: AZITHROMYCIN 500 MG TAB PO SCH (14:20)
[2017-03-17 17:03] LABS: Glucose,Whole Blood 239 mg/dL (75-99)
[2017-03-17] MEDS: INSULIN LISPRO (humaLOG) 300 UNIT/3 ML VIAL SQ SCH ×2 (17:39→21:11)
[2017-03-17] MEDS: NICOTINE 14MG/24HR PATCH TRANSDERM SCH (17:39)
[2017-03-17 20:55] LABS: Glucose,Whole Blood 295 mg/dL (75-99)
[2017-03-17] MEDS: ATORVASTATIN 40 MG TAB PO SCH (21:47)
[2017-03-18 06:17] LABS: Glucose,Whole Blood 227 mg/dL (75-99)
[2017-03-18 06:38] LABS: Basophils % (A) 0 %; CH 28.1; CHCM 32.4; Eosinophils % (A) 0 %; HCT 35.5 % (34.0-46.0); HDW 2.57; HGB 11.5 gm/dL (11.4-16.0); Luc # (Auto) 0.06; Luc % (Auto) 0; Lymphocytes # (A) 0.7 k/uL (1.0-4.8); Lymphocytes % (A) 4 %; MCH 28.2 pg (25.0-35.0); MCHC 32.4 g/dL (31.0-37.0); MCV 86.9 fL (80.0-100.0); Mean Platelet Volume 7.8; Monocytes # (A) 0.5 k/uL (0-1.0); Monocytes % (A) 3 %; Neutrophils # (A) 16.6 k/uL (1.3-7.7); Neutrophils % (A) 93 %; RBC 4.09 m/uL (3.80-5.40); RDW 13.5 % (11.5-15.5); WBC 17.9 k/uL (3.8-10.6)
[2017-03-18 06:48] LABS: ALT 29 U/L (9-52); AST 24 U/L (14-36); Alkaline Phosphatase 142 U/L (38-126); Anion Gap 8 mmol/L; Blood Urea Nitrogen 22 mg/dL (7-17); Calcium 9.3 mg/dL (8.4-10.2); Carbon Dioxide 26 mmol/L (22-30); Chloride 103 mmol/L (98-107); Glucose 120 mg/dL (74-99); Non-African American GFR(MDRD) >60 (>60 ml/min/1.73 sqM); Potassium 5.2 mmol/L (3.5-5.1); Sodium 137 mmol/L (137-145); Total Bilirubin 0.4 mg/dL (0.2-1.3); Total Protein 6.3 g/dL (6.3-8.2)
[2017-03-18] MEDS: INSULIN LISPRO (humaLOG) 300 UNIT/3 ML VIAL SQ SCH ×4 (06:54→20:59)
[2017-03-18] MEDS: methylPREDNISolone SOD SUCCI 125 MG/2 ML VIAL IV SCH ×4 (06:54→22:55)
[2017-03-18] MEDS: oxyCODONE ER 15 MG TAB.ER.12H PO SCH ×2 (09:01→20:59)
[2017-03-18] MEDS: METOPROLOL SUCCINATE (ER) 25 MG TAB.ER.24H PO SCH (09:02)
[2017-03-18] MEDS: FAMOTIDINE 20 MG TAB PO SCH (09:02)
[2017-03-18] MEDS: HEPARIN SODIUM,PORCINE 5,000 UNIT/ML 1 ML VIAL SQ SCH ×2 (09:03→20:58)
[2017-03-18] MEDS: diphenhydrAMINE 50 MG CAP PO SCH ×3 (09:03→20:58)
[2017-03-18] MEDS: IPRATROPIUM-ALBUTEROL 3 ML NEB INHALATION SCH ×4 (10:44→21:19)
--- NOTE | 2017-03-18 11:16 | P.PN ---
Subjective Principal diagnosis: Exacerbation of chronic obstructive pulmonary disease Patient is a 67-year-old female was known history of advanced COPD and lung mass will presented to [facility] was worsening shortness of breath admitted to telemetry floor she was started on IV antibiotic IV steroids and inhaled bronchodilators she improved significantly since yesterday. Objective - Vital Signs Vital signs: Vital Signs Temp 97.6 F 03/18/17 08:00 Pulse 100 03/18/17 10:56 Resp 20 03/18/17 08:40 BP 168/94 03/18/17 08:00 Pulse Ox 92 L 03/18/17 08:40 - Exam In general patient is alert and oriented 3 in no apparent distress HEENT head normocephalic and atraumatic Neck is supple no JVD no goiter no lymphadenopathy Chest exam reveals a scattered crackles bilaterally no wheezing Cardiac exam reveals regular heart sounds no murmurs Abdomen is soft nontender no organomegaly Extremity exam reveals no edema no cyanosis or clubbing - Labs CBC & Chem 7: 03/18/17 06:07 03/18/17 06:07 Assessment and Plan Plan: 1. Acute hypoxic respiratory failure secondary to COPD exacerbation. Patient had significant improvement since yesterday, continue was current management with IV steroids and inhaled bronchodilators 2. Acute COPD exacerbation: Patient placed on nebulizer treatments and IV Solu- Medrol. Pulmonary service consulted 3. Acute tracheobronchitis: No pneumonia noted on chest x-ray. Patient currently on azithromycin. Patient has penicillin and Cipro ALLERGY 4. Right midlung nodule noted on chest x-ray. Suspected neoplasm. Pulmonary service consulted, plans to proceed with percutaneous needle biopsy tomorrow 5. Nicotine dependence: Patient placed on nicotine patch. Discussed smoking cessation for greater than 3 minutes. 6. History of rheumatoid arthritis resume patient's pain medications. 7. History of atrial fibrillation status post cardiac ablation 8. History of TIA 9. Hyperlipidemia continue statin 10. Mild dehydration noted on admission. Patient receiving IV fluids 11. Essential hypertension continue with metoprolol 12. Lower back pain and lump along the right side of her spine.
[2017-03-18 11:39] LABS: Glucose,Whole Blood 151 mg/dL (75-99)
[2017-03-18] MEDS: AZITHROMYCIN 500 MG TAB PO SCH (12:05)
--- NOTE | 2017-03-18 15:46 | P.PN ---
Subjective 77-year-old female patient, known to me due to her advanced COPD, tobacco smoking and increase in the right upper lobe speculated mass that was identified on the CAT scan of the chest. The patient came in to the hospital yesterday because of increased shortness of breath. She is a chronic cigarette smoker in she continues to smoke cigarettes on a daily basis. She became progressively shortness of breath and she was having congested cough chest tightness and wheezing. No fever or chills. No chest pain. No nausea. No vomiting. She was briefly placed on a BiPAP at a pressure of 10 over 5 cm of water and currently she is off the BiPAP and utilizing a simple face mask with 40% FiO2. She is not wearing her mask all the time her pulse ox is above 88%. Note that the patient has very poor lung capacity and based on the most recent measurement of her lung function, the patient had demonstrated significant drop in her lung function over the past 5 years with her FEV1 has dropped from 64% down to 31% and this is consistent with severe obstructive airway disease. I counseled this patient for smoking cessation. I offered her nicotine patches. She was restarted on Spiriva 1 inhalation a day. She was also asked to stay on a maintenance of Symbicort 160/4.52 puffs twice a day. As for the CAT scan of the chest, I saw an abnormality in the patient's chest x-ray and I ordered a computed tomography scan of the chest that showed moderate to severe emphysematous change bilaterally and there was a 2.5 x 1.6 cm right upper lobe nodule enlarging from previous evaluations and back in December 2016 this was measuring around 1.4 x 1.0 cm in size. As such there is a high suspicion that this may be cancerous. The patient also has an ascending aorta measuring 4.4 cm transversely and aorta just above the diaphragm measuring 5.4 x 5.1 cm in size. The patient has also markedly spurting and this narrowing with sclerosis of the level of T11 and T12. On 03/18/2017 I'm seeing this patient in follow-up. The patient is less short of breath compared to yesterday. No chest pain. Less bronchospastic and wheezy compared to yesterday. She is still on a combination of bronchodilators and systemic steroids. I discussed the case with interventional radiology and the patient should be able to have her lung mass needled under CAT scan guidance to establish a tissue diagnosis. Objective - Vital Signs Vital signs: Vital Signs Temp 98.0 F 03/18/17 12:00 Pulse 94 03/18/17 12:00 Resp 22 03/18/17 12:00 BP 153/92 03/18/17 12:00 Pulse Ox 90 L 03/18/17 12:00 Intake & Output 03/17/17 03/18/17 03/18/17 18:59 06:59 18:59 Intake Total 14 Balance 14 Intake: IV 14 0.9% NS FLUSH 10 ML 14 - Exam Cachectic thin frail elderly female patient, nonacute distress. No dizziness and muscle breathing.Head exam was generally normal. There was no scleral icterus or corneal arcus. Mucous membranes were moist.Neck was supple and without jugular venous distension, thyromegaly, or carotid bruits. Carotids were easily palpable bilaterally. There was no adenopathy. Lung sounds are diminished bilaterally along with prolongation of the expiratory phase of breathing and diffuse expiratory wheezes throughout the lung izquierdo.Cardiac exam revealed the PMI to be normally situated and sized. The rhythm was regular and no extrasystoles were noted during several minutes of auscultation. The first and second heart sounds were normal and physiologic splitting of the second heart sound was noted. There were no murmurs, rubs, clicks, or gallops.Abdominal exam revealed normal bowel sounds. The abdomen was soft, non- tender, and without masses, organomegaly, or appreciable enlargement of the abdominal aorta.Examination of the extremities revealed easily palpable radial, femoral and pedal pulses. There was no cyanosis, clubbing or edema. Muscles are thin and the patient is quite cachectic and emaciated. - Labs CBC & Chem 7: 03/18/17 06:07 03/18/17 06:07 Labs: Abnormal Lab Results - Last 24 Hours (Table) 03/18/17 Range/Units 11:37 POC Glucose (mg/dL) 151 H (75-99) mg/dL Assessment and Plan Plan: Assessment 1 severe COPD with an FEV1 of 31% of predicted at baseline 2 acute COPD exacerbation with a chest x-ray showing no acute abnormalities other than a right upper lobe lesion that was seen on previous CAT scan of the chest On 03/18/2017 the patient is improving and the patient is less short of breath compared to yesterday. Her COPD is further being optimized. 3 right upper lobe mass measuring 2.5 x 1.6 cm in size, enlarging in size, spiculated, very much suggestive of underlying lung cancer 4 chronic dyspnea 5 chronic smoker 6 abnormal weight loss 7 aneurysm of the thoracic aorta both transfers and descending 8 hypertension 9 hyperlipidemia 10 scoliosis of the lumbar spine 11 degenerative lumbar disc disease Plan Continue optimizing the acute COPD exacerbation with a combination of bronchodilators and steroids and antibiotics. The patient is clinically improved. Anticipate further improvement over the next 24 hours. Proceed with fine-needle aspirate of the right upper lobe mass by interventional radiology in a.m. We'll continue to follow. Coagulation profile is within normal. We' ll follow
[2017-03-18 17:05] LABS: Glucose,Whole Blood 135 mg/dL (75-99)
[2017-03-18] MEDS: NICOTINE 14MG/24HR PATCH TRANSDERM SCH (17:18)
[2017-03-18 20:47] LABS: Glucose,Whole Blood 161 mg/dL (75-99)
[2017-03-18] MEDS: ATORVASTATIN 40 MG TAB PO SCH (20:58)
[2017-03-19 06:23] LABS: Glucose,Whole Blood 123 mg/dL (75-99)
[2017-03-19 06:31] LABS: Basophils % (A) 0 %; CH 27.9; CHCM 31.4; Eosinophils % (A) 0 %; HCT 37.1 % (34.0-46.0); HDW 2.41; HGB 11.6 gm/dL (11.4-16.0); Hypochromasia Slight; Luc # (Auto) 0.08; Luc % (Auto) 1; Lymphocytes # (A) 0.6 k/uL (1.0-4.8); Lymphocytes % (A) 3 %; MCH 27.9 pg (25.0-35.0); MCHC 31.3 g/dL (31.0-37.0); MCV 89.2 fL (80.0-100.0); Mean Platelet Volume 7.8; Monocytes # (A) 0.5 k/uL (0-1.0); Monocytes % (A) 3 %; Neutrophils # (A) 15.6 k/uL (1.3-7.7); Neutrophils % (A) 93 %; RBC 4.16 m/uL (3.80-5.40); RDW 13.9 % (11.5-15.5); WBC 16.8 k/uL (3.8-10.6); WBC (Perox) 18.26
[2017-03-19 06:35] LABS: ALT 26 U/L (9-52); AST 24 U/L (14-36); Alkaline Phosphatase 128 U/L (38-126); Anion Gap 10 mmol/L; Blood Urea Nitrogen 31 mg/dL (7-17); Calcium 9.4 mg/dL (8.4-10.2); Carbon Dioxide 26 mmol/L (22-30); Chloride 101 mmol/L (98-107); Glucose 161 mg/dL (74-99); Non-African American GFR(MDRD) >60 (>60 ml/min/1.73 sqM); Potassium 4.1 mmol/L (3.5-5.1); Sodium 137 mmol/L (137-145); Total Bilirubin 0.3 mg/dL (0.2-1.3); Total Protein 6.1 g/dL (6.3-8.2)
[2017-03-19] MEDS: INSULIN LISPRO (humaLOG) 300 UNIT/3 ML VIAL SQ SCH ×4 (06:42→21:34)
[2017-03-19] MEDS: methylPREDNISolone SOD SUCCI 125 MG/2 ML VIAL IV SCH ×3 (06:43→17:06)
[2017-03-19] MEDS: oxyCODONE ER 15 MG TAB.ER.12H PO SCH ×2 (08:08→21:20)
[2017-03-19] MEDS: diphenhydrAMINE 50 MG CAP PO SCH ×2 (08:09→15:38)
[2017-03-19] MEDS: METOPROLOL SUCCINATE (ER) 25 MG TAB.ER.24H PO SCH (08:10)
[2017-03-19] MEDS: HEPARIN SODIUM,PORCINE 5,000 UNIT/ML 1 ML VIAL SQ SCH ×2 (08:10→21:22)
[2017-03-19] MEDS: FAMOTIDINE 20 MG TAB PO SCH (08:10)
[2017-03-19] MEDS: IPRATROPIUM-ALBUTEROL 3 ML NEB INHALATION SCH ×4 (09:11→19:06)
--- NOTE | 2017-03-19 11:01 | P.PN ---
Subjective Exacerbation of chronic obstructive pulmonary disease Patient is a 67-year-old female was known history of advanced COPD and lung mass will presented to [facility] was worsening shortness of breath admitted to telemetry floor she was started on IV antibiotic IV steroids and inhaled bronchodilators she improved significantly since yesterday. Patient reports that she is improved 100%. She is scheduled for needle biopsy of the lung nodule today. Denies any chest pain or shortness breath. Denies any nausea vomiting. Having bowel movements. Denies any difficulty urinating. Objective - Vital Signs Vital signs: Vital Signs Temp 97.9 F 03/19/17 08:00 Pulse 101 H 03/19/17 09:23 Resp 24 03/19/17 08:00 BP 166/98 03/19/17 08:00 Pulse Ox 92 L 03/19/17 08:00 Intake & Output 03/18/17 03/19/17 03/19/17 18:59 06:59 18:59 Intake Total 236 660 Balance 236 660 Weight 38 kg Intake: IV 14 10 0.9% NS FLUSH 10 ML 14 10 Oral 222 650 Other: Voiding Method Toilet # Voids 2 - Exam Head normocephalic Neck supple Lungs clear to auscultation bilaterally no wheezing or crackles Heart regular rate and rhythm S1-S2, no rub or gallop Abdomen is soft nontender nondistended positive bowel sounds no hepatosplenomegaly Extremities no edema Neuro alert and orientated to 3 - Labs CBC & Chem 7: 03/19/17 05:38 03/19/17 05:38 Labs: Abnormal Lab Results - Last 24 Hours (Table) 03/18/17 03/18/17 03/18/17 Range/Units 11:37 17:01 20:46 WBC (3.8-10.6) k/uL Neutrophils # (1.3-7.7) k/uL Lymphocytes # (1.0-4.8) k/uL BUN (7-17) mg/dL Glucose (74-99) mg/dL POC Glucose (mg/dL) 151 H 135 H 161 H (75-99) mg/dL Alkaline Phosphatase (38-126) U/L Total Protein (6.3-8.2) g/dL 03/19/17 03/19/17 03/19/17 Range/Units 05:38 05:38 06:22 WBC 16.8 H (3.8-10.6) k/uL Neutrophils # 15.6 H (1.3-7.7) k/uL Lymphocytes # 0.6 L (1.0-4.8) k/uL BUN 31 H (7-17) mg/dL Glucose 161 H (74-99) mg/dL POC Glucose (mg/dL) 123 H (75-99) mg/dL Alkaline Phosphatase 128 H (38-126) U/L Total Protein 6.1 L (6.3-8.2) g/dL Assessment and Plan Plan: 1. Acute hypoxic respiratory failure secondary to COPD exacerbation. 2. Acute COPD exacerbation: Patient placed on nebulizer treatments and IV Solu- Medrol. Pulmonary following 3. Acute tracheobronchitis: No pneumonia noted on chest x-ray. Patient currently on azithromycin. Patient has penicillin and Cipro ALLERGY 4. Right midlung nodule noted on chest x-ray. Suspected neoplasm. Patient is scheduled for fine needle aspirate lung biopsy with interventional radiology today 5. Nicotine dependence: Patient placed on nicotine patch. Discussed smoking cessation for greater than 3 minutes. 6. History of rheumatoid arthritis resume patient's pain medications. 7. History of atrial fibrillation status post cardiac ablation 8. History of TIA 9. Hyperlipidemia continue statin 10. Mild dehydration noted on admission. Patient receiving IV fluids 11. Essential hypertension continue with metoprolol 12. Scoliosis of the lumbar spine and degenerative lumbar disc disease 13. 2 aneurysms of the thoracic aorta GI prophylaxis Pepcid and DVT prophylaxis subcu heparin Anticipate discharge possibly tomorrow I performed an examination of the patient and discussed their management with the physician Dental Patient Coordinator. I have reviewed the Physician Dental Patient Coordinator's notes and agree with the documented findings and plan of care
[2017-03-19 11:28] LABS: Glucose,Whole Blood 178 mg/dL (75-99)
[2017-03-19] MEDS: ALPRAZolam 0.25 MG TAB PO PRN (11:30)
--- NOTE | 2017-03-19 13:09 | P.PN ---
Subjective 77-year-old female patient, known to me due to her advanced COPD, tobacco smoking and increase in the right upper lobe speculated mass that was identified on the CAT scan of the chest. The patient came in to the hospital yesterday because of increased shortness of breath. She is a chronic cigarette smoker in she continues to smoke cigarettes on a daily basis. She became progressively shortness of breath and she was having congested cough chest tightness and wheezing. No fever or chills. No chest pain. No nausea. No vomiting. She was briefly placed on a BiPAP at a pressure of 10 over 5 cm of water and currently she is off the BiPAP and utilizing a simple face mask with 40% FiO2. She is not wearing her mask all the time her pulse ox is above 88%. Note that the patient has very poor lung capacity and based on the most recent measurement of her lung function, the patient had demonstrated significant drop in her lung function over the past 5 years with her FEV1 has dropped from 64% down to 31% and this is consistent with severe obstructive airway disease. I counseled this patient for smoking cessation. I offered her nicotine patches. She was restarted on Spiriva 1 inhalation a day. She was also asked to stay on a maintenance of Symbicort 160/4.52 puffs twice a day. As for the CAT scan of the chest, I saw an abnormality in the patient's chest x-ray and I ordered a computed tomography scan of the chest that showed moderate to severe emphysematous change bilaterally and there was a 2.5 x 1.6 cm right upper lobe nodule enlarging from previous evaluations and back in December 2016 this was measuring around 1.4 x 1.0 cm in size. As such there is a high suspicion that this may be cancerous. The patient also has an ascending aorta measuring 4.4 cm transversely and aorta just above the diaphragm measuring 5.4 x 5.1 cm in size. The patient has also markedly spurting and this narrowing with sclerosis of the level of T11 and T12. On 03/18/2017 I'm seeing this patient in follow-up. The patient is less short of breath compared to yesterday. No chest pain. Less bronchospastic and wheezy compared to yesterday. She is still on a combination of bronchodilators and systemic steroids. I discussed the case with interventional radiology and the patient should be able to have her lung mass needled under CAT scan guidance to establish a tissue diagnosis. The patient is seen again today 03/19/2017 in follow-up on the selective care unit. She is awake and alert in no acute distress. She is breathing easier today as compared to yesterday. The plan is for biopsy of the lung mass by interventional radiology with CT guidance. The patient is agreeable. Objective - Vital Signs Vital signs: Vital Signs Temp 97.6 F 03/19/17 11:12 Pulse 82 03/19/17 12:48 Resp 18 03/19/17 12:48 BP 131/71 03/19/17 12:48 Pulse Ox 97 03/19/17 12:48 Intake & Output 03/18/17 03/19/17 03/19/17 18:59 06:59 18:59 Intake Total 236 660 250 Balance 236 660 250 Weight 38 kg Intake: IV 14 10 10 0.9% NS FLUSH 10 ML 14 10 10 Oral 222 650 240 Other: Voiding Method Toilet # Voids 2 - Exam Cachectic thin frail elderly female patient, nonacute distress. No dizziness and muscle breathing.Head exam was generally normal. There was no scleral icterus or corneal arcus. Mucous membranes were moist.Neck was supple and without jugular venous distension, thyromegaly, or carotid bruits. Carotids were easily palpable bilaterally. There was no adenopathy. Lung sounds are diminished bilaterally along with prolongation of the expiratory phase of breathing and diffuse expiratory wheezes throughout the lung izquierdo.Cardiac exam revealed the PMI to be normally situated and sized. The rhythm was regular and no extrasystoles were noted during several minutes of auscultation. The first and second heart sounds were normal and physiologic splitting of the second heart sound was noted. There were no murmurs, rubs, clicks, or gallops.Abdominal exam revealed normal bowel sounds. The abdomen was soft, non- tender, and without masses, organomegaly, or appreciable enlargement of the abdominal aorta.Examination of the extremities revealed easily palpable radial, femoral and pedal pulses. There was no cyanosis, clubbing or edema. Muscles are thin and the patient is quite cachectic and emaciated. - Labs CBC & Chem 7: 03/19/17 05:38 03/19/17 05:38 Labs: Abnormal Lab Results - Last 24 Hours (Table) 03/18/17 03/18/1717 Range/Units 17:01 20:46 05:38 WBC 16.8 H (3.8-10.6) k/uL Neutrophils # 15.6 H (1.3-7.7) k/uL Lymphocytes # 0.6 L (1.0-4.8) k/uL BUN (7-17) mg/dL Glucose (74-99) mg/dL POC Glucose (mg/dL) 135 H 161 H (75-99) mg/dL Alkaline Phosphatase (38-126) U/L Total Protein (6.3-8.2) g/dL 03/19/17 03/19/17 03/19/17 Range/Units 05:38 06:22 11:27 WBC (3.8-10.6) k/uL Neutrophils # (1.3-7.7) k/uL Lymphocytes # (1.0-4.8) k/uL BUN 31 H (7-17) mg/dL Glucose 161 H (74-99) mg/dL POC Glucose (mg/dL) 123 H 178 H (75-99) mg/dL Alkaline Phosphatase 128 H (38-126) U/L Total Protein 6.1 L (6.3-8.2) g/dL Assessment and Plan Plan: Assessment 1 severe COPD with an FEV1 of 31% of predicted at baseline 2 acute COPD exacerbation with a chest x-ray showing no acute abnormalities other than a right upper lobe lesion that was seen on previous CAT scan of the chest 3 right upper lobe mass measuring 2.5 x 1.6 cm in size, enlarging in size, spiculated, very much suggestive of underlying lung cancer 4 chronic dyspnea 5 chronic smoker 6 abnormal weight loss 7 aneurysm of the thoracic aorta both transfers and descending 8 hypertension 9 hyperlipidemia 10 scoliosis of the lumbar spine 11 degenerative lumbar disc disease Plan The patient was seen and evaluated by Dr. June. She is breathing better today as compared to yesterday, nearly back to her baseline. The plan is for CT -guided biopsy of the lung mass today with interventional radiology. We'll make further recommendations based on her pathology results. We'll continue with her current pulmonary medications. We will continue to follow.
--- NOTE | 2017-03-19 13:09 | XR ---
EXAMINATION TYPE: XR chest 1V portable DATE OF EXAM: 03/19/2017 1:03 PM COMPARISON: 03/16/2017 INDICATION: Difficulty breathing lung biopsy TECHNIQUE: Single frontal view of the chest is obtained. FINDINGS: The heart size is normal. The pulmonary vasculature is normal. There is a 2.7 x 2.0 cm nodule within the mid right lung field. There is a large pneumothorax present extending from the right lung base laterally to the lung apex. This is estimated at approximately 50%. Radiology nursing was notified of these results at time of im aging. IMPRESSION: 1. Large right pneumothorax estimated at 50%. 2. Right peripheral lung nodule, medially displaced by a pneumothorax
--- NOTE | 2017-03-19 13:12 | CDI ---
In responding to this query, please exercise your independent professional judgment. The [facility] Coding Staff and Clinical Documentation Specialists appreciate your assistance in clarifying documentation, maintaining compliance with coding guidelines, accurately documenting patients condition and capturing severity of illness. The fact that a question is asked does not imply that any particular answer is desired or expected. Communication forms are a method of clarifying documentation and are not made part of the Legal Health Record. Thank you in advance for your clarification. Last Revision, September 2015 Panda Troy [address] [facility] [place] [address] Documentation Clarification Form Date: 03/19/2017 12:58:00 PM From: Tracey Bran, CCS, CCDS Admit Date: 03/18/2017 8:33:00 AM Patient Name: Greer Mason Visit Number: [id number] Discharge Date: Dr. Mariela Delgadillo: 67 yo female, admitted with SOB, current & long time smoker. Per documentation, has a solitary lung nodule in the right middle lung lobe and also a lump on her spine. History/Risk Factors: Long time smoker, COPD, Asthma & Atrial Fibrillation. Clinical Indicators: Presented with sudden onset of sob, recently diagnosed with COPD and has known lung nodule, recent abnormal weight loss & is cachetic. Labs: Total Protein: 7.5, 6.1*; Albumin 4.2, 3.3*. Current BMI: 17.5 Treatment: Oral nutrition supplement, Dietary consult, Pulmonary consult, scheduled for IR FNA of lung nodule. Albuterol neb iNH, IV MagSulfate, IV steroids, IV Toradol, IV Azithromycin, Heparin sc. Dietary consult: Low BMI, Underweight, BMI: 17.0 @ 86% of ideal body weight, decreased intake over 1.5 yrs. In your professional opinion, can you please clarify if these findings signify one of the following conditions? Mild Protein Malnutrition Mild Protein-Calorie Malnutrition Moderate Protein Malnutrition Moderate Protein-Calorie Malnutrition Severe Protein Malnutrition Severe Protein-Calorie Malnutrition Malnutrition Other condition, please specify Unable to determine Please document in your progress notes and discharge summary in order to capture severity of illness and risk of mortality. Include clinical findings that support your diagnosis. FYI: Press F11 to launch patient chart. Place X here if this finding has no clinical significance, is not applicable or if you are not able to provide any additional documentation. Thank You. JANEEN
[2017-03-19] MEDS: HYDROmorphone 1 MG/ML 1 ML SYRINGE IVP STA ×2 (13:16→14:02)
[2017-03-19] MEDS: AZITHROMYCIN 500 MG TAB PO SCH (14:03)
--- NOTE | 2017-03-19 15:24 | XR ---
EXAMINATION TYPE: XR chest 1V DATE OF EXAM: 03/19/2017 3:07 PM COMPARISON: Chest x-ray earlier same date INDICATION: Right lung biopsy, pneumothorax TECHNIQUE: Single frontal view of the chest is obtained. FINDINGS: The heart size is normal. The pulmonary vasculature is normal. Patient's previous pneumothorax appears completely resolved on the chest x-ray. Lung mass in the dariusz phery of the right lung. Chest tubes at the right base. Subcutaneous emphysema is on the right. IMPRESSION: 1. Resolution previous right pneumothorax. Chest tube is been placed at the right base. 2. Right peripheral midlung mass
[2017-03-19] MEDS: HYDROmorphone 1 MG/ML 1 ML SYRINGE IVP PRN ×2 (15:36→18:44)
[2017-03-19 16:34] LABS: Glucose,Whole Blood 331 mg/dL (75-99)
--- NOTE | 2017-03-19 16:35 | CT ---
EXAMINATION TYPE: CT chest tube insertion DATE OF EXAM: 03/19/2017 1:44 PM COMPARISON: EXAMINATION TYPE: CT chest tube insertion DATE OF EXAM: 03/19/2017 1:44 PM COMPARISON: NONE HISTORY: Chest tube insertion by Dr. Diego LANDIS DLP: 362 mGycm The procedure is discussed with the patient, the risks, complications, benefits and alternatives, wer e discussed and any questions were answered. Informed consent was obtained. The patient is placed s upine on the CT table, prepped and draped in the usual sterile fashion. Utilizing a 22-gauge Chiba needle access into the right pleural space was achieved with 18-gauge need le. Placement of an O.035 guidewire. Serial dilation 8 Tajik with placement 8 Tajik pigtail cathete r as requested by referring physician. Postprocedural images demonstrated intermediate near complete resolution of pneumothorax. All elements of maximal barrier technique were utilized. The patient rem ained stable throughout the procedure with no immediate postprocedural complication. IMPRESSION: 1. Successful CT guided right-sided chest tube insertion.
--- NOTE | 2017-03-19 16:36 | CT ---
EXAMINATION TYPE: CT guided FNA DATE OF EXAM: 03/19/2017 1:07 PM COMPARISON: NONE HISTORY: CT guided FNA performed by Dr. Cortez. [address] DLP: 522mGycm PROCEDURE: The risks, applications, benefits and alternatives, were discussed with the patient and questions wer e answered. Informed consent was obtained. The patient was placed supine on the fluoroscopic table, prepped and draped in the usual sterile fashion. A 22-gauge system was utilized with direct passage of the needle into the right lung lesion under CT guidance. Single sample was obtained with fine needle aspiration. Pathology pending The patient was stable throughout procedure and remained stable upon discharge from radiology. All elements of maxi mal barrier and sterile technique were utilized. Postprocedural pneumothorax seen. Patient has severe emphysema. Chest tube to be inserted. Patient st able. IMPRESSION: 1. Successful CT-guided fine-needle aspiration of a right lung mass.
[2017-03-19] MEDS: NICOTINE 14MG/24HR PATCH TRANSDERM SCH (17:07)
[2017-03-19 20:26] LABS: Glucose,Whole Blood 101 mg/dL (75-99)
[2017-03-19] MEDS: ATORVASTATIN 40 MG TAB PO SCH (21:22)
[2017-03-20] MEDS: HYDROmorphone 1 MG/ML 1 ML SYRINGE IVP PRN ×5 (00:10→19:27)
[2017-03-20] MEDS: methylPREDNISolone SOD SUCCI 125 MG/2 ML VIAL IV SCH ×2 (00:12→08:23)
[2017-03-20] MEDS: diphenhydrAMINE 50 MG CAP PO SCH ×4 (00:19→20:55)
[2017-03-20] MEDS: ALPRAZolam 0.25 MG TAB PO PRN ×2 (03:25→22:24)
--- NOTE | 2017-03-20 04:49 | XR ---
EXAM: XR Chest, 1 View. CLINICAL HISTORY: Reason: chest tube placement TECHNIQUE: Frontal view of the chest. COMPARISON: 03/19/17 FINDINGS: Lungs: Mild bibasilar atelectasis/scarring. Ovoid density projecting over the periphery of the right mid lung persists although less well visualized due to extensive overlying lucency due to subcutaneous emphysema. Pleural space: No obvious pneumothorax is seen however. Heart: Unremarkable. No cardiomegaly. Mediastinum: Unremarkable. Bones/joints: Unremarkable. Soft tissues: Extensive extensive subcutaneous emphysema over bilateral chest wall. This is worse in the right chest wall extending into the supraclavicular region and appears new in the left chest wall. This limits evaluation for pneumothorax. Vasculature: Tortuous thoracic calcified aorta, unchanged. Tubes, lines and devices: Stable pigtail drainage catheter projecting over the right lung base. Overlying chest leads obscure portion of the chest. IMPRESSION: 1. Right-sided pigtail drainage catheter, unchanged in position. 2. No gross pneumothorax noting limitation as described. 3. Extensive worsening subcutaneous emphysema over bilateral chest wall
[2017-03-20 05:45] LABS: Glucose,Whole Blood 143 mg/dL (75-99)
[2017-03-20 06:57] LABS: Basophils % (A) 0 %; CH 27.8; CHCM 31.4; Eosinophils % (A) 0 %; HCT 39.8 % (34.0-46.0); HDW 2.41; HGB 12.4 gm/dL (11.4-16.0); Hypochromasia Slight; Luc # (Auto) 0.09; Luc % (Auto) 1; Lymphocytes # (A) 0.6 k/uL (1.0-4.8); Lymphocytes % (A) 4 %; MCH 27.8 pg (25.0-35.0); MCHC 31.2 g/dL (31.0-37.0); Mean Platelet Volume 7.7; Monocytes # (A) 0.5 k/uL (0-1.0); Monocytes % (A) 3 %; Neutrophils # (A) 14.3 k/uL (1.3-7.7); Neutrophils % (A) 92 %; RBC 4.47 m/uL (3.80-5.40); RDW 13.8 % (11.5-15.5); WBC 15.6 k/uL (3.8-10.6); WBC (Perox) 16.79
[2017-03-20] MEDS: IPRATROPIUM-ALBUTEROL 3 ML NEB INHALATION SCH ×4 (07:01→19:50)
[2017-03-20 07:04] LABS: ALT 35 U/L (9-52); AST 22 U/L (14-36); Alkaline Phosphatase 123 U/L (38-126); Anion Gap 9 mmol/L; Blood Urea Nitrogen 34 mg/dL (7-17); Calcium 9.8 mg/dL (8.4-10.2); Carbon Dioxide 28 mmol/L (22-30); Chloride 98 mmol/L (98-107); Glucose 128 mg/dL (74-99); Non-African American GFR(MDRD) 55 (>60 ml/min/1.73 sqM); Potassium 4.8 mmol/L (3.5-5.1); Sodium 135 mmol/L (137-145); Total Bilirubin 0.4 mg/dL (0.2-1.3); Total Protein 6.5 g/dL (6.3-8.2)
[2017-03-20] MEDS: oxyCODONE ER 15 MG TAB.ER.12H PO SCH ×2 (08:22→20:08)
[2017-03-20] MEDS: INSULIN LISPRO (humaLOG) 300 UNIT/3 ML VIAL SQ SCH ×4 (08:24→20:29)
[2017-03-20] MEDS: HEPARIN SODIUM,PORCINE 5,000 UNIT/ML 1 ML VIAL SQ SCH ×2 (08:24→20:10)
[2017-03-20] MEDS: FAMOTIDINE 20 MG TAB PO SCH (08:31)
[2017-03-20] MEDS: METOPROLOL SUCCINATE (ER) 25 MG TAB.ER.24H PO SCH (08:32)
--- NOTE | 2017-03-20 10:17 | P.PN ---
Subjective Exacerbation of chronic obstructive pulmonary disease Patient is a 67-year-old female was known history of advanced COPD and lung mass will presented to [facility] was worsening shortness of breath admitted to telemetry floor she was started on IV antibiotic IV steroids and inhaled bronchodilators she improved significantly since yesterday. Patient is status post CT-guided fine-needle aspiration of right lung mass. However she did develop a 50% pneumothorax on the right side and chest tube needed to be placed. Chest x-ray from today showing no gross pneumothorax with extensive worsening subcutaneous emphysema over bilateral chest wall. Patient has a subcutaneous emphysema all he up through her neck and into her face. She is unable to open her eyes. There is swelling even in the back arms and abdomen. Patient will be transferred to the ICU. She did require to be placed on 5 L nasal cannula. Pulmonary service has been notified as well as interventional radiology in regards to the air leak. Patient is able to talk. She denies any chest pain. Denies any shortness of breath. Objective - Vital Signs Vital signs: Vital Signs Temp 97.4 F L 03/20/17 08:00 Pulse 89 03/20/17 08:00 Resp 18 03/20/17 08:00 BP 189/109 03/20/17 08:00 Pulse Ox 93 L 03/20/17 08:00 Intake & Output 03/19/17 03/20/17 03/20/17 18:59 06:59 18:59 Intake Total 930 200 118 Output Total 0 0 0 Balance 930 200 118 Weight 38 kg 38.1 kg Intake: IV 10 0.9% NS FLUSH 10 ML 10 Oral 920 200 118 Output: Chest Tube Drainage 0 0 0 Right 0 0 0 Other: Voiding Method Toilet Bedside Commode # Voids 2 - Exam Head patient has significant facial swelling. Eyes are swollen shut. Neck crepitus noted along the neck and swelling. Lungs diminished bilaterally. Crepitus Swelling on the chest and back and into the arms bilaterally Heart regular rate and rhythm S1-S2, no rub or gallop Abdomen is soft nontender nondistended positive bowel sounds no hepatosplenomegaly Extremities no edema Neuro alert and orientated to 3 - Labs CBC & Chem 7: 03/20/17 05:45 03/20/17 05:45 Labs: Abnormal Lab Results - Last 24 Hours (Table) 0403/19/17 03/19/17 Range/Units 11:27 16:32 20:25 WBC (3.8-10.6) k/uL Neutrophils # (1.3-7.7) k/uL Lymphocytes # (1.0-4.8) k/uL Sodium (137-145) mmol/L BUN (7-17) mg/dL Glucose (74-99) mg/dL POC Glucose (mg/dL) 178 H 331 H 101 H (75-99) mg/dL 03/20/17 03/20/17 03/20/17 Range/Units 05:43 05:45 05:45 WBC 15.6 H (3.8-10.6) k/uL Neutrophils # 14.3 H (1.3-7.7) k/uL Lymphocytes # 0.6 L (1.0-4.8) k/uL Sodium 135 L (137-145) mmol/L BUN 34 H (7-17) mg/dL Glucose 128 H (74-99) mg/dL POC Glucose (mg/dL) 143 H (75-99) mg/dL Assessment and Plan Plan: 1. Acute hypoxic respiratory failure secondary to COPD exacerbation. 2. Acute COPD exacerbation: Patient placed on nebulizer treatments and IV Solu- Medrol. Pulmonary following 3. Acute tracheobronchitis: No pneumonia noted on chest x-ray. Patient currently on azithromycin. Patient has penicillin and Cipro ALLERGY 4. Right midlung nodule noted on chest x-ray. Suspected neoplasm. Status post fine needle aspirate lung biopsy with interventional radiology today 5. Nicotine dependence: Patient placed on nicotine patch. Discussed smoking cessation for greater than 3 minutes. 6. History of rheumatoid arthritis resume patient's pain medications. 7. History of atrial fibrillation status post cardiac ablation 8. History of TIA 9. Hyperlipidemia continue statin 10. Mild dehydration noted on admission. Patient receiving IV fluids 11. Essential hypertension continue with metoprolol 12. Scoliosis of the lumbar spine and degenerative lumbar disc disease 13. 2 aneurysms of the thoracic aorta: Vascular surgery consulted 14. Mild protein calorie malnutrition continue protein supplement 15. Right-sided pneumothorax after biopsy of lung mass. Chest tube inserted. Patient has subcutaneous emphysema that involves her face neck chest back arms and abdomen. Pulmonary service notified. Patient will be transferred to the ICU for closer monitoring GI prophylaxis Pepcid and DVT prophylaxis subcu heparin I performed an examination of the patient and discussed their management with the physician Material Control Supervisor. I have reviewed the Physician Material Control Supervisor's notes and agree with the documented findings and plan of care
[2017-03-20 10:36] LABS: Glucose,Whole Blood 119 mg/dL (75-99)
[2017-03-20 12:41] LABS: Glucose,Whole Blood 124 mg/dL (75-99)
[2017-03-20] MEDS: AZITHROMYCIN 500 MG TAB PO SCH (13:00)
[2017-03-20 15:12] LABS: Hepatits C Virus RNA, Quant <12 IU/mL (<12); LOG HCV IU/mL <1.08 (<1.08)
[2017-03-20] MEDS: hydrALAZINE HCL 20 MG/ML 1 ML VIAL IVP PRN ×2 (16:03→22:24)
[2017-03-20] MEDS: methylPREDNISolone SOD SUCCI 40 MG/ML 1 ML VIAL IV SCH (16:18)
--- NOTE | 2017-03-20 17:20 | P.PN ---
Subjective 77-year-old female patient, known to me due to her advanced COPD, tobacco smoking and increase in the right upper lobe speculated mass that was identified on the CAT scan of the chest. The patient came in to the hospital yesterday because of increased shortness of breath. She is a chronic cigarette smoker in she continues to smoke cigarettes on a daily basis. She became progressively shortness of breath and she was having congested cough chest tightness and wheezing. No fever or chills. No chest pain. No nausea. No vomiting. She was briefly placed on a BiPAP at a pressure of 10 over 5 cm of water and currently she is off the BiPAP and utilizing a simple face mask with 40% FiO2. She is not wearing her mask all the time her pulse ox is above 88%. Note that the patient has very poor lung capacity and based on the most recent measurement of her lung function, the patient had demonstrated significant drop in her lung function over the past 5 years with her FEV1 has dropped from 64% down to 31% and this is consistent with severe obstructive airway disease. I counseled this patient for smoking cessation. I offered her nicotine patches. She was restarted on Spiriva 1 inhalation a day. She was also asked to stay on a maintenance of Symbicort 160/4.52 puffs twice a day. As for the CAT scan of the chest, I saw an abnormality in the patient's chest x-ray and I ordered a computed tomography scan of the chest that showed moderate to severe emphysematous change bilaterally and there was a 2.5 x 1.6 cm right upper lobe nodule enlarging from previous evaluations and back in December 2016 this was measuring around 1.4 x 1.0 cm in size. As such there is a high suspicion that this may be cancerous. The patient also has an ascending aorta measuring 4.4 cm transversely and aorta just above the diaphragm measuring 5.4 x 5.1 cm in size. The patient has also markedly spurting and this narrowing with sclerosis of the level of T11 and T12. On 03/18/2017 I'm seeing this patient in follow-up. The patient is less short of breath compared to yesterday. No chest pain. Less bronchospastic and wheezy compared to yesterday. She is still on a combination of bronchodilators and systemic steroids. I discussed the case with interventional radiology and the patient should be able to have her lung mass needled under CAT scan guidance to establish a tissue diagnosis. On 03/19/2017, the patient underwent fine-needle aspirate of the right upper lobe mass. This was done by interventional radiology. Postop, the patient had developed a right-sided pneumothorax. I was aware of the pneumothorax as I reviewed the chest x-ray that was done immediately following the procedure. I discussed the case with interventional radiology and a pigtail catheter was inserted with successful reexpansion of the right lung. There was however development of a septic and his emphysema on the right. On 03/20/2017, the patient got moved to the intensive care unit in the academic support coordinator hours. Overnight, at around 2:58 AM, the patient developed some worsening of the saphenous emphysema that extended from her right chest area to involve her upper chest bilaterally, and then neck and face and a saphenous emphysema with extensive to the point where the patient was unable to open her eyes. This started in his emphysema He is also felt in her upper extremity especially on the right. Despite all this, the patient remained hemodynamically stable. There was no signs of any airway compromise. She was saturating around 94-95% on 3 L of oxygen nasal cannula. Hemodynamically she remains stable and there was no hypotension. No chest pain reported. The right -sided pigtail catheter was in place and it was still showing signs of air leak as seen on the Pleur-evac. Based on this extensive hepatitis emphysematous got quite uncomfortable, the patient got transferred to the intensive care unit. I attended on this patient in ICU. I had a very lengthy discussion with the family who are very much worried about his condition and initially there were quite upset not understanding the sequence of events that led her to have the percutaneous emphysema and transferred to the intensive care units. In fact one of the daughters was very aggressive and I had a feeling that she did not want to accept the situation. I myself and the presence of my nurse practitioner, Christiane Dee, spent at least 2 hours with the family and talked to have a single family members including 3 daughters and . I made it clear that this is a anticipated complication of a fine-needle aspirate. I reviewed the series of chest x-rays and the most recent chest x-ray from this morning showed subcutaneous emphysema and despite the severity of the condition the right lung was well expanded and the tube itself was function was leaking care. I discussed this case at length with the cardiothoracic surgeon and I involve Dr. Yong Oviedo and decision making. We both felt that inserting a second chest tube may potentially induce trauma and may not improve her subcutaneous emphysema. As such we decided to keep the original pigtail catheter in place and introduce 2 incisions over the chest subcutaneously to deflate the subcutaneous emphysema. This was done at the bedside by Dr. Yong Oviedo and it resulted to significant improvement over the next few hours. At this point in time the extent of emphysema over the face and the neck is less. Meanwhile, I discussed the case with the pathologist and based on the pulmonary findings from the fine-needle aspirate the patient has abnormal malignant cells which probably is of a squamous cell in nature. I shared this with the daughters. At this point in time, the patient is resting comfortably in the intensive care unit. No signs of any respiratory distress. No wheeze of eczema wheezes of breathing. Hemodynamically stable. Afebrile. Still on bronchodilators. Still on IV Solu Medrol and doses been drop down to 40 g IV every 8 hours. Objective - Vital Signs Vital signs: Vital Signs Temp 98.7 F 03/20/17 12:00 Pulse 73 03/20/17 16:30 Resp 16 03/20/17 15:00 BP 149/91 03/20/17 15:00 Pulse Ox 94 L 03/20/17 15:00 Intake & Output 03/19/17 03/20/17 03/20/17 18:59 06:59 18:59 Intake Total 930 200 238 Output Total 0 0 350 Balance 930 200 -112 Weight 38 kg 38.1 kg Intake: IV 10 20 0.9% NS FLUSH 10 ML 10 20 Oral 920 200 218 Output: Chest Tube Drainage 0 0 0 Right 0 0 0 Urine 350 Other: Voiding Method Toilet Bedside Commode Bedside Commode # Voids 2 - Exam On general appearance, the patient has extensive subcutaneous emphysema over the had face neck upper chest and to lesser extent in the right upper extremity. The patient has no goiter or neck masses. Mucous membranes are moist and there is no thrush. No cervical or supraclavicular lymphadenopathy. Lung sounds are diminished bilaterally. Breath sounds are diminished in lung bases especially. This some few scattered expiratory wheeze otherwise breath other are equal and symmetrical. There is saphenous emphysema over the anterior chest and the pigtail catheter is in good position the right lower chest area.Cardiac exam revealed the PMI to be normally situated and sized. The rhythm was regular and no extrasystoles were noted during several minutes of auscultation. The first and second heart sounds were normal and physiologic splitting of the second heart sound was noted. There were no murmurs, rubs, clicks, or gallops.Abdominal exam revealed normal bowel sounds. The abdomen was soft, non-tender, and without masses, organomegaly, or appreciable enlargement of the abdominal aorta.Examination of the extremities revealed easily palpable radial, femoral and pedal pulses. There was no cyanosis, clubbing or edema. - Labs CBC & Chem 7: 03/20/17 05:45 03/20/17 05:45 Labs: Abnormal Lab Results - Last 24 Hours (Table) 03/19/17 03/20/17 03/20/17 Range/Units 20:25 05:43 05:45 WBC 15.6 H (3.8-10.6) k/uL Neutrophils # 14.3 H (1.3-7.7) k/uL Lymphocytes # 0.6 L (1.0-4.8) k/uL Sodium (137-145) mmol/L BUN (7-17) mg/dL Glucose (74-99) mg/dL POC Glucose (mg/dL) 101 H 143 H (75-99) mg/dL 03/20/17 03/20/17 03/20/17 Range/Units 05:45 10:34 12:37 WBC (3.8-10.6) k/uL Neutrophils # (1.3-7.7) k/uL Lymphocytes # (1.0-4.8) k/uL Sodium 135 L (137-145) mmol/L BUN 34 H (7-17) mg/dL Glucose 128 H (74-99) mg/dL POC Glucose (mg/dL) 119 H 124 H (75-99) mg/dL Assessment and Plan Plan: Assessment 1 severe COPD with an FEV1 of 31% of predicted at baseline 2 acute COPD exacerbation, improving. 3 right upper lobe mass measuring 2.5 x 1.6 cm in size, enlarging in size, spiculated, very much suggestive of underlying lung cancer. 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 4 Iatrogenic right-sided pneumothorax post fine-needle aspirate of the right upper lobe. The procedure was done by interventional radiology. Immediately a pigtail catheter was inserted and this was further appreciated by extensive subcutaneous emphysema involving the head face neck and upper chest. The chest x-ray as well inflated and there is no evidence of any residual pneumothorax. There is positive air leak within the chest tube. The chest tube is attached to the wall suction. Subcutaneous incisions were done over the anterior chest to deflate the saphenous emphysema. 5 chronic smoker 6 abnormal weight loss 7 aneurysm of the thoracic aorta both transfers and descending 8 hypertension 9 hyperlipidemia 10 scoliosis of the lumbar spine 11 degenerative lumbar disc disease Plan I spend literally a total of 2-1/2 to 3 hours with this family explaining to them the situation. This was a hard discussion knowing that one of the daughters initially was having hard time accepting situation. Ultimately thing settled and were able to reason with his family and they came up to the understanding that the patient is stable and this is manageable. Based on my discussion with the thoracic surgeon, we opted not to put the second chest tube. Without insertion of a second chest tube may produce more trauma to the right lung specially the patient has extensive and diffuse emphysematous changes bilaterally. As such Diversionary inserted pigtail catheter. We proceeded with subcutaneous incisions to deflate the emphysema under the skin. This has helped and the patient is looking better and we anticipate further improvement in saphenous area over the next few hours and hopefully within next 24 hours. Meanwhile, the patient's pulmonary status remains stable. The preliminary findings on the right upper lobe mass is suggestive of squamous cell carcinoma. She'll be kept in the intensive care unit. She is tolerating soft diet. We will keep oxygen. Keep the chest tube in place. Repeat chest x- ray in a.m. We'll continue to follow. Time with Patient: Greater than 30
[2017-03-20 17:30] LABS: Glucose,Whole Blood 101 mg/dL (75-99)
[2017-03-20] MEDS: NICOTINE 14MG/24HR PATCH TRANSDERM SCH (18:24)
[2017-03-20] MEDS: ATORVASTATIN 40 MG TAB PO SCH (20:10)
[2017-03-20 20:28] LABS: Glucose,Whole Blood 112 mg/dL (75-99)
[2017-03-21] MEDS: methylPREDNISolone SOD SUCCI 40 MG/ML 1 ML VIAL IV SCH ×3 (00:02→09:19)
[2017-03-21] MEDS: HYDROmorphone 1 MG/ML 1 ML SYRINGE IVP PRN ×8 (00:06→22:59)
[2017-03-21 04:55] LABS: Basophils % (A) 0 %; Eosinophils # (A) 0.1 k/uL (0-0.7); Eosinophils % (A) 1 %; HDW 2.44; HGB 13.9 gm/dL (11.4-16.0); Luc # (Auto) 0.14; Luc % (Auto) 1; Lymphocytes # (A) 0.7 k/uL (1.0-4.8); Lymphocytes % (A) 4 %; MCH 27.9 pg (25.0-35.0); MCHC 31.6 g/dL (31.0-37.0); MCV 88.1 fL (80.0-100.0); Mean Platelet Volume 7.3; Monocytes # (A) 0.6 k/uL (0-1.0); Monocytes % (A) 3 %; Neutrophils # (A) 16.9 k/uL (1.3-7.7); Neutrophils % (A) 92 %; RBC 4.99 m/uL (3.80-5.40); RDW 13.7 % (11.5-15.5); WBC 18.5 k/uL (3.8-10.6); WBC (Perox) 18.37
[2017-03-21 05:07] LABS: ALT 34 U/L (9-52); AST 24 U/L (14-36); Alkaline Phosphatase 123 U/L (38-126); Anion Gap 8 mmol/L; Blood Urea Nitrogen 32 mg/dL (7-17); Calcium 9.6 mg/dL (8.4-10.2); Carbon Dioxide 28 mmol/L (22-30); Chloride 97 mmol/L (98-107); Glucose 115 mg/dL (74-99); Non-African American GFR(MDRD) >60 (>60 ml/min/1.73 sqM); Potassium 4.9 mmol/L (3.5-5.1); Sodium 133 mmol/L (137-145); Total Bilirubin 0.6 mg/dL (0.2-1.3); Total Protein 6.9 g/dL (6.3-8.2)
--- NOTE | 2017-03-21 06:43 | XR ---
EXAMINATION TYPE: XR chest 1V portable DATE OF EXAM: 03/21/2017 6:35 AM CLINICAL HISTORY: Difficulty breathing and chest tube progress study. TECHNIQUE: Single AP portable upright view of the chest is obtained. COMPARISON: Chest x-ray from one day earlier FINDINGS: Extensive overlying subcutaneous emphysema is seen in both chests including supraclavicula r region and extending into bilateral upper extremities. This makes evaluation for small pneumothorax suboptimal. There is chronic emphysematous change with mild bibasilar scarring and/or atelectasis an d peripheral right basilar pigtail catheter. No large pleural effusion or pneumothorax is seen bilate rally. Cardiac silhouette size is stable and within normal limits with atherosclerotic and ectatic th oracic aorta. Retrocardiac opacity consistent with hiatal hernia is present. Long segment fusion plat e lower cervical spine is redemonstrated. IMPRESSION: Overall stable findings, extensive subcutaneous emphysema bilaterally with chronic emph ysematous change, right basilar pigtail drainage catheter, and bibasilar linear scarring and/or atele ctasis. No sizable pneumothorax is noted.
[2017-03-21] MEDS: IPRATROPIUM-ALBUTEROL 3 ML NEB INHALATION SCH ×4 (07:37→20:34)
[2017-03-21 08:32] LABS: Glucose,Whole Blood 116 mg/dL (75-99)
[2017-03-21] MEDS: INSULIN LISPRO (humaLOG) 300 UNIT/3 ML VIAL SQ SCH ×4 (08:34→21:29)
[2017-03-21] MEDS: FAMOTIDINE 20 MG TAB PO SCH (08:41)
[2017-03-21] MEDS: METOPROLOL SUCCINATE (ER) 25 MG TAB.ER.24H PO SCH (08:41)
[2017-03-21] MEDS: diphenhydrAMINE 50 MG CAP PO SCH ×4 (08:41→19:05)
[2017-03-21] MEDS: HEPARIN SODIUM,PORCINE 5,000 UNIT/ML 1 ML VIAL SQ SCH ×2 (08:41→21:11)
[2017-03-21] MEDS: predniSONE 10 MG TAB PO SCH (09:20)
[2017-03-21] MEDS: oxyCODONE ER 15 MG TAB.ER.12H PO SCH ×2 (10:03→21:13)
--- NOTE | 2017-03-21 10:18 | P.PN ---
Subjective 77-year-old female patient, known to me due to her advanced COPD, tobacco smoking and increase in the right upper lobe speculated mass that was identified on the CAT scan of the chest. The patient came in to the hospital yesterday because of increased shortness of breath. She is a chronic cigarette smoker in she continues to smoke cigarettes on a daily basis. She became progressively shortness of breath and she was having congested cough chest tightness and wheezing. No fever or chills. No chest pain. No nausea. No vomiting. She was briefly placed on a BiPAP at a pressure of 10 over 5 cm of water and currently she is off the BiPAP and utilizing a simple face mask with 40% FiO2. She is not wearing her mask all the time her pulse ox is above 88%. Note that the patient has very poor lung capacity and based on the most recent measurement of her lung function, the patient had demonstrated significant drop in her lung function over the past 5 years with her FEV1 has dropped from 64% down to 31% and this is consistent with severe obstructive airway disease. I counseled this patient for smoking cessation. I offered her nicotine patches. She was restarted on Spiriva 1 inhalation a day. She was also asked to stay on a maintenance of Symbicort 160/4.52 puffs twice a day. As for the CAT scan of the chest, I saw an abnormality in the patient's chest x-ray and I ordered a computed tomography scan of the chest that showed moderate to severe emphysematous change bilaterally and there was a 2.5 x 1.6 cm right upper lobe nodule enlarging from previous evaluations and back in December 2016 this was measuring around 1.4 x 1.0 cm in size. As such there is a high suspicion that this may be cancerous. The patient also has an ascending aorta measuring 4.4 cm transversely and aorta just above the diaphragm measuring 5.4 x 5.1 cm in size. The patient has also markedly spurting and this narrowing with sclerosis of the level of T11 and T12. On 03/18/2017 I'm seeing this patient in follow-up. The patient is less short of breath compared to yesterday. No chest pain. Less bronchospastic and wheezy compared to yesterday. She is still on a combination of bronchodilators and systemic steroids. I discussed the case with interventional radiology and the patient should be able to have her lung mass needled under CAT scan guidance to establish a tissue diagnosis. On 03/19/2017, the patient underwent fine-needle aspirate of the right upper lobe mass. This was done by interventional radiology. Postop, the patient had developed a right-sided pneumothorax. I was aware of the pneumothorax as I reviewed the chest x-ray that was done immediately following the procedure. I discussed the case with interventional radiology and a pigtail catheter was inserted with successful reexpansion of the right lung. There was however development of a septic and his emphysema on the right. On 03/20/2017, the patient got moved to the intensive care unit in the liver trimmer hours. Overnight, at around 2:58 AM, the patient developed some worsening of the saphenous emphysema that extended from her right chest area to involve her upper chest bilaterally, and then neck and face and a saphenous emphysema with extensive to the point where the patient was unable to open her eyes. This started in his emphysema He is also felt in her upper extremity especially on the right. Despite all this, the patient remained hemodynamically stable. There was no signs of any airway compromise. She was saturating around 94-95% on 3 L of oxygen nasal cannula. Hemodynamically she remains stable and there was no hypotension. No chest pain reported. The right -sided pigtail catheter was in place and it was still showing signs of air leak as seen on the Pleur-evac. Based on this extensive hepatitis emphysematous got quite uncomfortable, the patient got transferred to the intensive care unit. I attended on this patient in ICU. I had a very lengthy discussion with the family who are very much worried about his condition and initially there were quite upset not understanding the sequence of events that led her to have the percutaneous emphysema and transferred to the intensive care units. In fact one of the daughters was very aggressive and I had a feeling that she did not want to accept the situation. I myself and the presence of my nurse practitioner, Christiane Dee, spent at least 2 hours with the family and talked to have a single family members including 3 daughters and . I made it clear that this is a anticipated complication of a fine-needle aspirate. I reviewed the series of chest x-rays and the most recent chest x-ray from this morning showed subcutaneous emphysema and despite the severity of the condition the right lung was well expanded and the tube itself was function was leaking care. I discussed this case at length with the cardiothoracic surgeon and I involve Dr. Yong Oviedo and decision making. We both felt that inserting a second chest tube may potentially induce trauma and may not improve her subcutaneous emphysema. As such we decided to keep the original pigtail catheter in place and introduce 2 incisions over the chest subcutaneously to deflate the subcutaneous emphysema. This was done at the bedside by Dr. Yong Oviedo and it resulted to significant improvement over the next few hours. At this point in time the extent of emphysema over the face and the neck is less. Meanwhile, I discussed the case with the pathologist and based on the pulmonary findings from the fine-needle aspirate the patient has abnormal malignant cells which probably is of a squamous cell in nature. I shared this with the daughters. At this point in time, the patient is resting comfortably in the intensive care unit. No signs of any respiratory distress. No wheeze of eczema wheezes of breathing. Hemodynamically stable. Afebrile. Still on bronchodilators. Still on IV Solu Medrol and doses been drop down to 40 g IV every 8 hours. On the patient is being seen in follow-up in the intensive care unit. She is much more comfortable compared to yesterday. The subcutaneous emphysema is improving and the patient's faces much deflated compared to yesterday and she is able to open up her eyes. Her chest x-ray from today shows no evidence of any pneumothorax. The pigtail catheter is still in place and the amount of air leak is improved compared to yesterday. She still on a wall suction. While , no signs of any respiratory distress. The patient is on 3 L of oxygen nasal cannula and his saturations around 94-95%. She is tolerating diet. She is on soft food for now. Hemodynamically stable. No change in mental status. No nausea. No vomiting. No chest pain. No other complaints otherwise. The subcutaneous incisions that were done over the anterior chest tender to touch. Objective - Vital Signs Vital signs: Vital Signs Temp 97.7 F 03/21/17 08:00 Pulse 78 03/21/17 10:00 Resp 23 03/21/17 10:00 BP 131/79 03/21/17 10:00 Pulse Ox 95 03/21/17 10:00 Intake & Output 03/20/17 03/21/17 03/21/17 18:59 06:59 18:59 Intake Total 278 80 300 Output Total 750 0 200 Balance -472 80 100 Weight 37.4 kg Intake: IV 60 80 0.9% NS FLUSH 10 ML 60 80 Oral 218 300 Output: Chest Tube Drainage 0 0 0 Right 0 0 0 Urine 750 0 200 Other: Voiding Method Bedside Commode Bedside Commode Bedpan # Voids 1 - Exam On general appearance, the patient has extensive subcutaneous emphysema over the had face neck upper chest and to lesser extent in the right upper extremity. Noted the upper extremity emphysema has improved. The face is also deflated and the patient is able to open up her eyes and seems much more comfortable compared to yesterday. The patient has no goiter or neck masses. Mucous membranes are moist and there is no thrush. No cervical or supraclavicular lymphadenopathy. Lung sounds are diminished bilaterally. Breath sounds are diminished in lung bases especially. This some few scattered expiratory wheeze otherwise breath other are equal and symmetrical. There is subcutaneous emphysema over the anterior chest and the pigtail catheter is in good position the right lower chest area.Cardiac exam revealed the PMI to be normally situated and sized. The rhythm was regular and no extrasystoles were noted during several minutes of auscultation. The first and second heart sounds were normal and physiologic splitting of the second heart sound was noted. There were no murmurs, rubs, clicks, or gallops.Abdominal exam revealed normal bowel sounds. The abdomen was soft, non-tender, and without masses, organomegaly , or appreciable enlargement of the abdominal aorta.Examination of the extremities revealed easily palpable radial, femoral and pedal pulses. There was no cyanosis, clubbing or edema. - Labs CBC & Chem 7: 03/21/17 04:40 03/21/17 04:40 Labs: Abnormal Lab Results - Last 24 Hours (Table) 03/20/17 03/20/17 03/20/17 Range/Units 10:34 12:37 17:27 WBC (3.8-10.6) k/uL Neutrophils # (1.3-7.7) k/uL Lymphocytes # (1.0-4.8) k/uL Sodium (137-145) mmol/L Chloride (98-107) mmol/L BUN (7-17) mg/dL Glucose (74-99) mg/dL POC Glucose (mg/dL) 119 H 124 H 101 H (75-99) mg/dL 03/20/17 03/21/17 03/21/17 Range/Units 20:27 04:40 04:40 WBC 18.5 H (3.8-10.6) k/uL Neutrophils # 16.9 H (1.3-7.7) k/uL Lymphocytes # 0.7 L (1.0-4.8) k/uL Sodium 133 L (137-145) mmol/L Chloride 97 L (98-107) mmol/L BUN 32 H (7-17) mg/dL Glucose 115 H (74-99) mg/dL POC Glucose (mg/dL) 112 H (75-99) mg/dL 03/21/17 Range/Units 08:30 WBC (3.8-10.6) k/uL Neutrophils # (1.3-7.7) k/uL Lymphocytes # (1.0-4.8) k/uL Sodium (137-145) mmol/L Chloride (98-107) mmol/L BUN (7-17) mg/dL Glucose (74-99) mg/dL POC Glucose (mg/dL) 116 H (75-99) mg/dL Assessment and Plan Plan: Assessment 1 severe COPD with an FEV1 of 31% of predicted at baseline 2 acute COPD exacerbation, improving. 3 right upper lobe mass measuring 2.5 x 1.6 cm in size, enlarging in size, spiculated, very much suggestive of underlying lung cancer. 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 4 Iatrogenic right-sided pneumothorax post fine-needle aspirate of the right upper lobe. The procedure was done by interventional radiology. Immediately a pigtail catheter was inserted and this was further appreciated by extensive subcutaneous emphysema involving the head face neck and upper chest. The chest x-ray as well inflated and there is no evidence of any residual pneumothorax. There is positive air leak within the chest tube. The chest tube is attached to the wall suction. Subcutaneous incisions were done over the anterior chest to deflate the saphenous emphysema. On 03/21/2017, the patient is much more comfortable compared to yesterday. No worsening in her condition and the extent of subcutaneous emphysema in the face is improving. The amount of air leak from the chest was also improved although that is still some ongoing leak as witnessed. The patient maze hemodynamically stable. The chest x-ray from today shows adequate expansion of the right lung and there is no evidence of any pneumothorax. No other active issues for now and the patient will be kept in the intensive care unit for further monitoring. 5 chronic smoker 6 abnormal weight loss 7 aneurysm of the thoracic aorta both transfers and descending 8 hypertension 9 hyperlipidemia 10 scoliosis of the lumbar spine 11 degenerative lumbar disc disease Plan The patient is comfortable. Anticipate further improvement in the subcutaneous emphysema over the next 24 hours. Keep the pigtail chest tube in place. Monitor the air leak. Continue the bronchodilators. This continued IV Solu Medrol put the patient on 30 mg of prednisone as part of her burst taper. Continue no the DuoNeb nebulized treatments around the clock. Dilaudid for pain control. Heparin subcu for DVT prophylaxis. Advance diet. We'll continue to follow. Patient is much improved compared to yesterday and the family is at the bedside and there were reassured.
[2017-03-21 12:38] LABS: Glucose,Whole Blood 101 mg/dL (75-99)
--- NOTE | 2017-03-21 12:47 | P.PN ---
Subjective Patient is being seen by me today for the first time on weekend coverage. She had a complicated hospital course. Unfortunately she had a complication from a pigtail catheter placed to the right chest with subsequent extensive subcutaneous emphysema. She was transferred to the intensive care for close monitoring. She remained hemodynamically stable. She was and underwent 2 small skin incisions to the anterior chest which resulted in improvement in her overall status. She is still puffed up today. She is able to open her eyes and answer questions appropriately. She was resting when I saw her. Objective - Vital Signs Vital signs: Vital Signs Temp 97.7 F 03/21/17 08:00 Pulse 76 03/21/17 12:00 Resp 22 03/21/17 12:00 BP 122/79 03/21/17 12:00 Pulse Ox 96 03/21/17 12:00 Intake & Output 03/20/17 03/21/17 03/21/17 18:59 06:59 18:59 Intake Total 278 80 300 Output Total 750 0 200 Balance -472 80 100 Weight 37.4 kg Intake: IV 60 80 0.9% NS FLUSH 10 ML 60 80 Oral 218 300 Output: Chest Tube Drainage 0 0 0 Right 0 0 0 Urine 750 0 200 Other: Voiding Method Bedside Commode Bedside Commode Bedpan # Voids 1 - Exam General: The patient is awake and alert, she has multiple extensive subcutaneous emphysema over the face, neck, and upper chest. Patient is open to open her eyes. Apparently her overall condition is improved since yesterday. Eye: there is normal conjunctiva bilaterally. Neck: The neck is supple, there is no JVD. Cardiovascular: Normal S1-S2, no S3-S4, no murmurs. Respiratory: Lungs diminished bilaterally with no rhonchi or wheezing Gastrointestinal: Abdomen is soft, nontender Neurological:. Speech is normal. - Labs CBC & Chem 7: 03/21/17 04:40 03/21/17 04:40 Labs: Abnormal Lab Results - Last 24 Hours (Table) 03/20/17 03/20/17 03/21/17 Range/Units 17:27 20:27 04:40 WBC 18.5 H (3.8-10.6) k/uL Neutrophils # 16.9 H (1.3-7.7) k/uL Lymphocytes # 0.7 L (1.0-4.8) k/uL Sodium (137-145) mmol/L Chloride (98-107) mmol/L BUN (7-17) mg/dL Glucose (74-99) mg/dL POC Glucose (mg/dL) 101 H 112 H (75-99) mg/dL 03/21/17 03/21/17 03/21/17 Range/Units 04:40 08:30 12:36 WBC (3.8-10.6) k/uL Neutrophils # (1.3-7.7) k/uL Lymphocytes # (1.0-4.8) k/uL Sodium 133 L (137-145) mmol/L Chloride 97 L (98-107) mmol/L BUN 32 H (7-17) mg/dL Glucose 115 H (74-99) mg/dL POC Glucose (mg/dL) 116 H 101 H (75-99) mg/dL Assessment and Plan Plan: 1. Acute hypoxic respiratory failure secondary to COPD exacerbation. 2. Acute COPD exacerbation: Patient placed on nebulizer treatments and IV Solu- Medrol. Pulmonary following 3. Acute tracheobronchitis: No pneumonia noted on chest x-ray. Patient currently on azithromycin. Patient has penicillin and Cipro ALLERGY 4. Right midlung nodule noted on chest x-ray. Suspected neoplasm. Status post fine needle aspirate lung biopsy with interventional radiology today 5. Nicotine dependence: Patient placed on nicotine patch. Discussed smoking cessation for greater than 3 minutes. 6. History of rheumatoid arthritis resume patient's pain medications. 7. History of atrial fibrillation status post cardiac ablation 8. History of TIA 9. Hyperlipidemia continue statin 10. Mild dehydration noted on admission. Patient receiving IV fluids 11. Essential hypertension continue with metoprolol 12. Scoliosis of the lumbar spine and degenerative lumbar disc disease 13. 2 aneurysms of the thoracic aorta: Vascular surgery consulted 14. Mild protein calorie malnutrition continue protein supplement 15. Right-sided pneumothorax after biopsy of lung mass. Chest tube inserted. Patient has diffuse subcutaneous emphysema that involves her face neck chest back arms and abdomen. Currently being monitored closely in the ICU. Pulmonology and thoracic surgery following
[2017-03-21] MEDS: AZITHROMYCIN 500 MG TAB PO SCH (12:56)
[2017-03-21 17:33] LABS: Glucose,Whole Blood 127 mg/dL (75-99)
[2017-03-21] MEDS: NICOTINE 14MG/24HR PATCH TRANSDERM SCH (17:49)
[2017-03-21] MEDS: ALPRAZolam 0.25 MG TAB PO PRN (17:56)
--- NOTE | 2017-03-21 19:28 | XR ---
EXAMINATION TYPE: XR chest 1V portable DATE OF EXAM: 03/21/2017 7:17 PM CLINICAL HISTORY: Difficulty breathing progress study. TECHNIQUE: Single AP portable upright view of the chest is obtained. COMPARISON: Chest x-ray from earlier today. CT chest tube March 19, 2017 FINDINGS: Extensive subcutaneous emphysema is seen bilaterally extending into the arms and neck mary ng evaluation suboptimal for small pneumothorax. There is persistent patchy right medial basilar atel ectasis and/or infiltrate. Underlying emphysematous change is present. Curvilinear density centrally could reflect pneumomediastinum and is unchanged. There is persistent right basilar pigtail drainage catheter. There is suspected tiny right pneumothorax laterally in lung base. Targeted nodule right lo wer lung is not well seen on plain films. Cardiac silhouette size is stable and within normal limits with atherosclerotic and ectatic thoracic aorta. Aneurysm is noted in descending thoracic aorta on re cent CT. Surgical change lower cervical spine is partially imaged. IMPRESSION: Overall stable findings, emphysematous change with extensive subcutaneous emphysema and right medial basilar atelectasis all redemonstrated. There is persistent tiny right basilar lateral pneumothorax despite pigtail catheter placement. No significant change in retrospect from recent [facility] t x-ray.
[2017-03-21 21:11] LABS: Glucose,Whole Blood 174 mg/dL (75-99)
[2017-03-21] MEDS: ATORVASTATIN 40 MG TAB PO SCH (21:11)
[2017-03-22] MEDS: HYDROmorphone 1 MG/ML 1 ML SYRINGE IVP PRN ×8 (02:11→21:04)
[2017-03-22 04:53] LABS: Basophils # (A) 0.1 k/uL (0-0.2); Basophils % (A) 0 %; CH 28.1; CHCM 32.5; Eosinophils # (A) 0.3 k/uL (0-0.7); Eosinophils % (A) 2 %; HCT 39.8 % (34.0-46.0); HDW 2.44; HGB 13.1 gm/dL (11.4-16.0); Luc # (Auto) 0.35; Luc % (Auto) 2; Lymphocytes # (A) 2.3 k/uL (1.0-4.8); Lymphocytes % (A) 11 %; MCH 28.6 pg (25.0-35.0); MCHC 32.9 g/dL (31.0-37.0); MCV 87.1 fL (80.0-100.0); Mean Platelet Volume 6.8; Monocytes # (A) 1.3 k/uL (0-1.0); Monocytes % (A) 7 %; Neutrophils # (A) 15.7 k/uL (1.3-7.7); Neutrophils % (A) 79 %; RBC 4.57 m/uL (3.80-5.40); RDW 13.3 % (11.5-15.5); WBC (Perox) 20.32
[2017-03-22 05:17] LABS: ALT 36 U/L (9-52); AST 23 U/L (14-36); Alkaline Phosphatase 99 U/L (38-126); Anion Gap 6 mmol/L; Blood Urea Nitrogen 41 mg/dL (7-17); Carbon Dioxide 30 mmol/L (22-30); Chloride 95 mmol/L (98-107); Glucose 82 mg/dL (74-99); Magnesium 2.4 mg/dL (1.6-2.3); Non-African American GFR(MDRD) 55 (>60 ml/min/1.73 sqM); Phosphorous 3.3 mg/dL (2.5-4.5); Potassium 4.5 mmol/L (3.5-5.1); Sodium 131 mmol/L (137-145); Total Bilirubin 0.3 mg/dL (0.2-1.3)
[2017-03-22 07:21] LABS: Glucose,Whole Blood 97 mg/dL (75-99)
--- NOTE | 2017-03-22 07:44 | XR ---
EXAMINATION TYPE: XR chest 1V portable DATE OF EXAM: 03/22/2017 6:29 AM CLINICAL HISTORY: Difficulty breathing subcutaneous air progress study. TECHNIQUE: Single AP portable upright view of the chest is obtained. COMPARISON: Chest x-ray from one day earlier FINDINGS: Extensive subcutaneous emphysema is seen bilaterally extending into the arms and neck mary ng evaluation suboptimal for small pneumothorax. There is persistent patchy right medial basilar atel ectasis and/or infiltrate. Underlying emphysematous change is present. There is persistent right bas ilar pigtail drainage catheter laterally. There is suspected tiny right pneumothorax laterally in angelica g base but is less well-seen. Targeted nodule right lower lung on recent biopsy laterally is better s een on plain films current study. Cardiac silhouette size is stable and within normal limits with ath erosclerotic and ectatic thoracic aorta. Aneurysm is noted in descending thoracic aorta on recent CT. Surgical change lower cervical spine is redemonstrated. IMPRESSION: Extensive subcutaneous emphysema with right basilar pigtail drainage catheter and felt st able tiny right basilar pneumothorax redemonstrated. Background chronic emphysematous change with pat marian right medial basilar atelectasis and/or infiltrate redemonstrated. No significant change from mos t recent prior.
[2017-03-22] MEDS: INSULIN LISPRO (humaLOG) 300 UNIT/3 ML VIAL SQ SCH ×4 (08:10→21:40)
[2017-03-22] MEDS: IPRATROPIUM-ALBUTEROL 3 ML NEB INHALATION SCH ×4 (08:12→19:12)
[2017-03-22] MEDS: oxyCODONE ER 15 MG TAB.ER.12H PO SCH ×2 (08:47→21:40)
[2017-03-22] MEDS: HEPARIN SODIUM,PORCINE 5,000 UNIT/ML 1 ML VIAL SQ SCH ×2 (08:49→21:39)
[2017-03-22] MEDS: diphenhydrAMINE 50 MG CAP PO SCH ×3 (08:49→21:42)
[2017-03-22] MEDS: predniSONE 10 MG TAB PO SCH (08:49)
[2017-03-22] MEDS: METOPROLOL SUCCINATE (ER) 25 MG TAB.ER.24H PO SCH (08:49)
[2017-03-22] MEDS: FAMOTIDINE 20 MG TAB PO SCH (08:49)
--- NOTE | 2017-03-22 09:48 | P.PN ---
Subjective 77-year-old female patient, known to me due to her advanced COPD, tobacco smoking and increase in the right upper lobe speculated mass that was identified on the CAT scan of the chest. The patient came in to the hospital yesterday because of increased shortness of breath. She is a chronic cigarette smoker in she continues to smoke cigarettes on a daily basis. She became progressively shortness of breath and she was having congested cough chest tightness and wheezing. No fever or chills. No chest pain. No nausea. No vomiting. She was briefly placed on a BiPAP at a pressure of 10 over 5 cm of water and currently she is off the BiPAP and utilizing a simple face mask with 40% FiO2. She is not wearing her mask all the time her pulse ox is above 88%. Note that the patient has very poor lung capacity and based on the most recent measurement of her lung function, the patient had demonstrated significant drop in her lung function over the past 5 years with her FEV1 has dropped from 64% down to 31% and this is consistent with severe obstructive airway disease. I counseled this patient for smoking cessation. I offered her nicotine patches. She was restarted on Spiriva 1 inhalation a day. She was also asked to stay on a maintenance of Symbicort 160/4.52 puffs twice a day. As for the CAT scan of the chest, I saw an abnormality in the patient's chest x-ray and I ordered a computed tomography scan of the chest that showed moderate to severe emphysematous change bilaterally and there was a 2.5 x 1.6 cm right upper lobe nodule enlarging from previous evaluations and back in December 2016 this was measuring around 1.4 x 1.0 cm in size. As such there is a high suspicion that this may be cancerous. The patient also has an ascending aorta measuring 4.4 cm transversely and aorta just above the diaphragm measuring 5.4 x 5.1 cm in size. The patient has also markedly spurting and this narrowing with sclerosis of the level of T11 and T12. On 03/18/2017 I'm seeing this patient in follow-up. The patient is less short of breath compared to yesterday. No chest pain. Less bronchospastic and wheezy compared to yesterday. She is still on a combination of bronchodilators and systemic steroids. I discussed the case with interventional radiology and the patient should be able to have her lung mass needled under CAT scan guidance to establish a tissue diagnosis. On 03/19/2017, the patient underwent fine-needle aspirate of the right upper lobe mass. This was done by interventional radiology. Postop, the patient had developed a right-sided pneumothorax. I was aware of the pneumothorax as I reviewed the chest x-ray that was done immediately following the procedure. I discussed the case with interventional radiology and a pigtail catheter was inserted with successful reexpansion of the right lung. There was however development of a septic and his emphysema on the right. On 03/20/2017, the patient got moved to the intensive care unit in the scanning manager hours. Overnight, at around 2:58 AM, the patient developed some worsening of the saphenous emphysema that extended from her right chest area to involve her upper chest bilaterally, and then neck and face and a saphenous emphysema with extensive to the point where the patient was unable to open her eyes. This started in his emphysema He is also felt in her upper extremity especially on the right. Despite all this, the patient remained hemodynamically stable. There was no signs of any airway compromise. She was saturating around 94-95% on 3 L of oxygen nasal cannula. Hemodynamically she remains stable and there was no hypotension. No chest pain reported. The right -sided pigtail catheter was in place and it was still showing signs of air leak as seen on the Pleur-evac. Based on this extensive hepatitis emphysematous got quite uncomfortable, the patient got transferred to the intensive care unit. I attended on this patient in ICU. I had a very lengthy discussion with the family who are very much worried about his condition and initially there were quite upset not understanding the sequence of events that led her to have the percutaneous emphysema and transferred to the intensive care units. In fact one of the daughters was very aggressive and I had a feeling that she did not want to accept the situation. I myself and the presence of my nurse practitioner, Christiane Dee, spent at least 2 hours with the family and talked to have a single family members including 3 daughters and . I made it clear that this is a anticipated complication of a fine-needle aspirate. I reviewed the series of chest x-rays and the most recent chest x-ray from this morning showed subcutaneous emphysema and despite the severity of the condition the right lung was well expanded and the tube itself was function was leaking care. I discussed this case at length with the cardiothoracic surgeon and I involve Dr. Yong Oviedo and decision making. We both felt that inserting a second chest tube may potentially induce trauma and may not improve her subcutaneous emphysema. As such we decided to keep the original pigtail catheter in place and introduce 2 incisions over the chest subcutaneously to deflate the subcutaneous emphysema. This was done at the bedside by Dr. Yong Oviedo and it resulted to significant improvement over the next few hours. At this point in time the extent of emphysema over the face and the neck is less. Meanwhile, I discussed the case with the pathologist and based on the pulmonary findings from the fine-needle aspirate the patient has abnormal malignant cells which probably is of a squamous cell in nature. I shared this with the daughters. At this point in time, the patient is resting comfortably in the intensive care unit. No signs of any respiratory distress. No wheeze of eczema wheezes of breathing. Hemodynamically stable. Afebrile. Still on bronchodilators. Still on IV Solu Medrol and doses been drop down to 40 g IV every 8 hours. On the patient is being seen in follow-up in the intensive care unit. She is much more comfortable compared to yesterday. The subcutaneous emphysema is improving and the patient's faces much deflated compared to yesterday and she is able to open up her eyes. Her chest x-ray from today shows no evidence of any pneumothorax. The pigtail catheter is still in place and the amount of air leak is improved compared to yesterday. She still on a wall suction. While , no signs of any respiratory distress. The patient is on 3 L of oxygen nasal cannula and his saturations around 94-95%. She is tolerating diet. She is on soft food for now. Hemodynamically stable. No change in mental status. No nausea. No vomiting. No chest pain. No other complaints otherwise. The subcutaneous incisions that were done over the anterior chest tender to touch. On 03/22/2017 the patient is being seen in follow-up. The air leak is improved significantly and the patient is having minimal air leak through the chest tube. Meanwhile the subcutaneous emphysema is essentially stable and if everything is gradually improving. Hemodynamically stable. She developed some oropharyngeal thrush and the patient is currently on oral Diflucan. The patient is on 3-4 L/m nasal cannula and her saturations above 92%. Chest x-ray from today shows no evidence of pneumothorax. The PICC line catheter remains in good location. There is a previous emphysema still present. Hemodynamically she is stable. Mentation is within normal. She is having some pain throughout her body and for that reason I'm going to increase his Dilaudid 1 mg every 3 hours on an as-needed basis. I again had a lengthy discussion with her and her daughter the bedside. Objective - Vital Signs Vital signs: Vital Signs Temp 99.1 F 03/22/17 08:00 Pulse 97 03/22/17 08:26 Resp 24 03/22/17 08:00 BP 144/85 03/22/17 08:00 Pulse Ox 93 L 03/22/17 08:12 Intake & Output 03/21/17 03/22/17 03/22/17 18:59 06:59 18:59 Intake Total 700 170 200 Output Total 400 0 0 Balance 300 170 200 Weight 39.5 kg Intake: IV 70 0.9% NS FLUSH 10 ML 70 Oral 700 100 200 Output: Chest Tube Drainage 0 0 0 Right 0 0 0 Urine 400 0 0 Other: Voiding Method Bedpan Bedpan # Voids 1 1 - Exam On general appearance, the patient has extensive subcutaneous emphysema over the had face neck upper chest and to lesser extent in the right upper extremity. Noted the upper extremity emphysema has improved. The face is also deflated and the patient is able to open up her eyes and seems much more comfortable compared to yesterday. The patient has no goiter or neck masses. Mucous membranes are moist and there is no thrush. No cervical or supraclavicular lymphadenopathy. Lung sounds are diminished bilaterally. Breath sounds are diminished in lung bases especially. This some few scattered expiratory wheeze otherwise breath other are equal and symmetrical. There is subcutaneous emphysema over the anterior chest and the pigtail catheter is in good position the right lower chest area.Cardiac exam revealed the PMI to be normally situated and sized. The rhythm was regular and no extrasystoles were noted during several minutes of auscultation. The first and second heart sounds were normal and physiologic splitting of the second heart sound was noted. There were no murmurs, rubs, clicks, or gallops.Abdominal exam revealed normal bowel sounds. The abdomen was soft, non-tender, and without masses, organomegaly , or appreciable enlargement of the abdominal aorta.Examination of the extremities revealed easily palpable radial, femoral and pedal pulses. There was no cyanosis, clubbing or edema. - Labs CBC & Chem 7: 03/22/17 04:40 03/22/17 04:40 Labs: Abnormal Lab Results - Last 24 Hours (Table) 03/21/17 03/21/17 03/21/17 Range/Units 12:36 17:31 21:10 WBC (3.8-10.6) k/uL Neutrophils # (1.3-7.7) k/uL Monocytes # (0-1.0) k/uL Sodium (137-145) mmol/L Chloride (98-107) mmol/L BUN (7-17) mg/dL POC Glucose (mg/dL) 101 H 127 H 174 H (75-99) mg/dL Magnesium (1.6-2.3) mg/dL Total Protein (6.3-8.2) g/dL Albumin (3.5-5.0) g/dL 03/22/17 03/22/17 Range/Units 04:40 04:40 WBC 20.0 H (3.8-10.6) k/uL Neutrophils # 15.7 H (1.3-7.7) k/uL Monocytes # 1.3 H (0-1.0) k/uL Sodium 131 L (137-145) mmol/L Chloride 95 L (98-107) mmol/L BUN 41 H (7-17) mg/dL POC Glucose (mg/dL) (75-99) mg/dL Magnesium 2.4 H (1.6-2.3) mg/dL Total Protein 6.0 L (6.3-8.2) g/dL Albumin 3.3 L (3.5-5.0) g/dL Assessment and Plan Plan: Assessment 1 severe COPD with an FEV1 of 31% of predicted at baseline 2 acute COPD exacerbation, improving. 3 right upper lobe mass measuring 2.5 x 1.6 cm in size, enlarging in size, spiculated, very much suggestive of underlying lung cancer. 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 4 Iatrogenic right-sided pneumothorax post fine-needle aspirate of the right upper lobe. The procedure was done by interventional radiology. Immediately a pigtail catheter was inserted and this was further appreciated by extensive subcutaneous emphysema involving the head face neck and upper chest. The chest x-ray as well inflated and there is no evidence of any residual pneumothorax. There is positive air leak within the chest tube. The chest tube is attached to the wall suction. Subcutaneous incisions were done over the anterior chest to deflate the saphenous emphysema. On 03/21/2017, the patient is much more comfortable compared to yesterday. No worsening in her condition and the extent of subcutaneous emphysema in the face is improving. The amount of air leak from the chest was also improved although that is still some ongoing leak as witnessed. The patient maze hemodynamically stable. The chest x-ray from today shows adequate expansion of the right lung and there is no evidence of any pneumothorax. No other active issues for now and the patient will be kept in the intensive care unit for further monitoring. On 03/22/2017, the patient is stable. Air leak from the chest tube is improved. Subcutaneous emphysema is gradually improving. No significant shortness of breath. She is on a 30 g of prednisone as part of a burst taper. She is using incentive spirometer. No significant respiratory distress. CT surgery is on the case. 5 chronic smoker 6 abnormal weight loss 7 aneurysm of the thoracic aorta both ascending and descending 8 hypertension 9 hyperlipidemia 10 scoliosis of the lumbar spine 11 degenerative lumbar disc disease 12. Pharyngeal thrush, currently on oral Diflucan 13 chronic pain Plan Keep the patient ICU. Sit up the patient on a chair. Be very careful on the positioning of the chest tube. Monitor the chest x-ray findings. Monitor the subcutaneous emphysema. Awaiting final path from the fine-needle aspirate and this is most likely a cancerous lesion probably a squamous cell carcinoma. Advance diet. Increase the Dilaudid to 1 mg every 3 hours on an as-needed basis. Continue oral Diflucan. We'll continue to follow.
[2017-03-22] MEDS: FLUCONAZOLE 100 MG TAB PO SCH (09:50)
[2017-03-22 12:09] LABS: Glucose,Whole Blood 190 mg/dL (75-99)
[2017-03-22] MEDS: AZITHROMYCIN 500 MG TAB PO SCH (12:14)
--- NOTE | 2017-03-22 13:52 | P.PN ---
Subjective Patient is doing well today. No events overnight. Objective - Vital Signs Vital signs: Vital Signs Temp 98.2 F 03/22/17 12:00 Pulse 93 03/22/17 13:00 Resp 32 H 03/22/17 13:00 BP 146/79 03/22/17 13:00 Pulse Ox 93 L 03/22/17 13:00 Intake & Output 03/21/17 03/22/17 03/22/17 18:59 06:59 18:59 Intake Total 700 170 440 Output Total 400 0 0 Balance 300 170 440 Weight 39.5 kg Intake: IV 70 0.9% NS FLUSH 10 ML 70 Oral 700 100 440 Output: Chest Tube Drainage 0 0 0 Right 0 0 0 Urine 400 0 0 Other: Voiding Method Bedpan Bedpan Bedpan # Voids 1 1 1 - Exam General: The patient is awake and alert, she has multiple extensive subcutaneous emphysema over the face, neck, and upper chest. Patient is open to open her eyes. Apparently her overall condition is improved since yesterday. Eye: there is normal conjunctiva bilaterally. Neck: The neck is supple, there is no JVD. Cardiovascular: Normal S1-S2, no S3-S4, no murmurs. Respiratory: Lungs diminished bilaterally with no rhonchi or wheezing Gastrointestinal: Abdomen is soft, nontender Neurological:. Speech is normal. - Labs CBC & Chem 7: 03/22/17 04:40 03/22/17 04:40 Labs: Abnormal Lab Results - Last 24 Hours (Table) 03/21/17 03/21/17 03/22/17 Range/Units 17:31 21:10 04:40 WBC 20.0 H (3.8-10.6) k/uL Neutrophils # 15.7 H (1.3-7.7) k/uL Monocytes # 1.3 H (0-1.0) k/uL Sodium (137-145) mmol/L Chloride (98-107) mmol/L BUN (7-17) mg/dL POC Glucose (mg/dL) 127 H 174 H (75-99) mg/dL Magnesium (1.6-2.3) mg/dL Total Protein (6.3-8.2) g/dL Albumin (3.5-5.0) g/dL 03/22/17 03/22/17 Range/Units 04:40 12:08 WBC (3.8-10.6) k/uL Neutrophils # (1.3-7.7) k/uL Monocytes # (0-1.0) k/uL Sodium 131 L (137-145) mmol/L Chloride 95 L (98-107) mmol/L BUN 41 H (7-17) mg/dL POC Glucose (mg/dL) 190 H (75-99) mg/dL Magnesium 2.4 H (1.6-2.3) mg/dL Total Protein 6.0 L (6.3-8.2) g/dL Albumin 3.3 L (3.5-5.0) g/dL Assessment and Plan Plan: 1. Acute hypoxic respiratory failure secondary to COPD exacerbation. 2. Acute COPD exacerbation: Patient placed on nebulizer treatments and IV Solu- Medrol. Pulmonary following 3. Acute tracheobronchitis: No pneumonia noted on chest x-ray. Patient currently on azithromycin. Patient has penicillin and Cipro ALLERGY 4. Right midlung nodule noted on chest x-ray. Suspected neoplasm. Status post fine needle aspirate lung biopsy with interventional radiology today 5. Nicotine dependence: Patient placed on nicotine patch. Discussed smoking cessation for greater than 3 minutes. 6. History of rheumatoid arthritis resume patient's pain medications. 7. History of atrial fibrillation status post cardiac ablation 8. History of TIA 9. Hyperlipidemia continue statin 10. Mild dehydration noted on admission. Patient receiving IV fluids 11. Essential hypertension continue with metoprolol 12. Scoliosis of the lumbar spine and degenerative lumbar disc disease 13. 2 aneurysms of the thoracic aorta: Vascular surgery consulted 14. Mild protein calorie malnutrition continue protein supplement 15. Right-sided pneumothorax after biopsy of lung mass. Chest tube inserted. Patient has diffuse subcutaneous emphysema that involves her face neck chest back arms and abdomen. Currently being monitored closely in the ICU. Pulmonology and thoracic surgery following
[2017-03-22] MEDS: ALPRAZolam 0.25 MG TAB PO PRN (14:12)
[2017-03-22 17:42] LABS: Glucose,Whole Blood 104 mg/dL (75-99)
[2017-03-22] MEDS: NICOTINE 14MG/24HR PATCH TRANSDERM SCH (17:46)
[2017-03-22 21:39] LABS: Glucose,Whole Blood 110 mg/dL (75-99)
[2017-03-22] MEDS: ATORVASTATIN 40 MG TAB PO SCH (21:39)
[2017-03-23] MEDS: HYDROmorphone 1 MG/ML 1 ML SYRINGE IVP PRN ×8 (00:02→21:29)
[2017-03-23] MEDS: ALPRAZolam 0.25 MG TAB PO PRN ×2 (03:30→21:28)
[2017-03-23 05:20] LABS: Basophils % (A) 0 %; CH 28.1; CHCM 31.3; Eosinophils # (A) 0.8 k/uL (0-0.7); Eosinophils % (A) 4 %; HCT 39.7 % (34.0-46.0); HDW 2.31; HGB 12.4 gm/dL (11.4-16.0); Hypochromasia Slight; Luc # (Auto) 0.36; Luc % (Auto) 2; Lymphocytes # (A) 2.3 k/uL (1.0-4.8); Lymphocytes % (A) 11 %; MCH 28.3 pg (25.0-35.0); MCHC 31.3 g/dL (31.0-37.0); MCV 90.2 fL (80.0-100.0); Mean Platelet Volume 7.2; Monocytes # (A) 1.4 k/uL (0-1.0); Monocytes % (A) 7 %; Neutrophils # (A) 15.3 k/uL (1.3-7.7); Neutrophils % (A) 76 %; RDW 13.6 % (11.5-15.5); WBC 20.1 k/uL (3.8-10.6); WBC (Perox) 21.46
[2017-03-23 05:25] LABS: ALT 32 U/L (9-52); AST 29 U/L (14-36); Alkaline Phosphatase 103 U/L (38-126); Anion Gap 7 mmol/L; Blood Urea Nitrogen 41 mg/dL (7-17); Calcium 9.2 mg/dL (8.4-10.2); Carbon Dioxide 30 mmol/L (22-30); Chloride 97 mmol/L (98-107); Glucose 81 mg/dL (74-99); Magnesium 2.4 mg/dL (1.6-2.3); Non-African American GFR(MDRD) >60 (>60 ml/min/1.73 sqM); Potassium 4.9 mmol/L (3.5-5.1); Sodium 134 mmol/L (137-145); Total Bilirubin 0.4 mg/dL (0.2-1.3); Total Protein 6.1 g/dL (6.3-8.2)
[2017-03-23 07:32] LABS: Glucose,Whole Blood 88 mg/dL (75-99)
[2017-03-23] MEDS: INSULIN LISPRO (humaLOG) 300 UNIT/3 ML VIAL SQ SCH ×4 (07:49→21:41)
--- NOTE | 2017-03-23 08:03 | XR ---
EXAMINATION TYPE: XR chest 1V DATE OF EXAM: 03/23/2017 6:43 AM CLINICAL HISTORY: Difficulty breathing progress study. TECHNIQUE: Single AP portable upright view of the chest is obtained. COMPARISON: Chest x-ray from one day earlier FINDINGS: Extensive overlying subcutaneous emphysema is seen bilaterally extending into the arms and neck making evaluation suboptimal for small pneumothorax. There is persistent patchy right medial ba silar atelectasis and/or infiltrate. Underlying emphysematous change is present. There is persistent right basilar pigtail drainage catheter laterally. No sizable pneumothorax is clearly seen bilaterall y on current study. No mediastinal shift is seen. Targeted nodule right lower lung on recent biopsy l aterally is redemonstrated. Cardiac silhouette size is stable and within normal limits with atheroscl erotic and ectatic thoracic aorta. Aneurysm is noted in descending thoracic aorta on recent CT. Surgi juan change lower cervical spine is redemonstrated. IMPRESSION: Overall stable findings, extensive overlying subcutaneous emphysema with right lateral basilar pigtail pleural drainage catheter and persistent right medial basilar atelectasis and/or infi ltrate. No significant change from prior.
[2017-03-23] MEDS: HEPARIN SODIUM,PORCINE 5,000 UNIT/ML 1 ML VIAL SQ SCH ×2 (08:37→21:29)
[2017-03-23] MEDS: diphenhydrAMINE 50 MG CAP PO SCH ×3 (08:38→21:29)
[2017-03-23] MEDS: METOPROLOL SUCCINATE (ER) 25 MG TAB.ER.24H PO SCH (08:38)
[2017-03-23] MEDS: FAMOTIDINE 20 MG TAB PO SCH (08:38)
[2017-03-23] MEDS: FLUCONAZOLE 100 MG TAB PO SCH (08:38)
[2017-03-23] MEDS: predniSONE 10 MG TAB PO SCH (08:38)
[2017-03-23] MEDS: oxyCODONE ER 15 MG TAB.ER.12H PO SCH ×2 (09:10→21:29)
[2017-03-23] MEDS: IPRATROPIUM-ALBUTEROL 3 ML NEB INHALATION SCH ×5 (09:23→21:04)
--- NOTE | 2017-03-23 10:29 | P.PN ---
Subjective Exacerbation of chronic obstructive pulmonary disease Patient is a 67-year-old female was known history of advanced COPD and lung mass will presented to [facility] was worsening shortness of breath admitted to telemetry floor she was started on IV antibiotic IV steroids and inhaled bronchodilators she improved significantly since yesterday. Patient is status post CT-guided fine-needle aspiration of right lung mass. However she did develop a 50% pneumothorax on the right side and chest tube needed to be placed. Chest x-ray from today showing no gross pneumothorax with extensive worsening subcutaneous emphysema over bilateral chest wall. Patient has a subcutaneous emphysema all he up through her neck and into her face. She is unable to open her eyes. There is swelling even in the back arms and abdomen. Patient will be transferred to the ICU. She did require to be placed on 5 L nasal cannula. Pulmonary service has been notified as well as interventional radiology in regards to the air leak. Patient is able to talk. She denies any chest pain. Denies any shortness of breath. 03/23/2017 patient showing improvement in the subcutaneous emphysema. She denies any chest pain or shortness breath. Denies any nausea or vomiting. Denies any bowel movement changes or urinary symptoms. Objective - Vital Signs Vital signs: Vital Signs Temp 98.5 F 03/23/17 08:00 Pulse 80 03/23/17 10:00 Resp 19 03/23/17 10:00 BP 119/84 03/23/17 10:00 Pulse Ox 95 03/23/17 10:00 Intake & Output 03/22/17 03/23/17 03/23/17 18:59 06:59 18:59 Intake Total 680 780 340 Output Total 0 650 0 Balance 680 130 340 Weight 38.9 kg Intake: IV 10 0 0.9% NS FLUSH 10 ML 10 0 Oral 680 770 340 Output: Chest Tube Drainage 0 0 0 Right 0 0 0 Urine 0 650 0 Other: Voiding Method Bedpan Bedpan # Voids 1 # Bowel Movements 1 - Exam Head decrease in facial swelling. Patient is able to open her eyes. Neck supple Lungs diminished bilaterally. Crepitus palpable along the chest and back Heart regular rate and rhythm S1-S2, no rub or gallop Abdomen is soft nontender nondistended positive bowel sounds no hepatosplenomegaly Extremities no edema Neuro alert and orientated to 3 - Labs CBC & Chem 7: 03/23/17 04:14 03/23/17 04:14 Labs: Abnormal Lab Results - Last 24 Hours (Table) 03/22/17 03/22/17 03/22/17 Range/Units 12:08 17:40 21:38 WBC (3.8-10.6) k/uL Neutrophils # (1.3-7.7) k/uL Monocytes # (0-1.0) k/uL Eosinophils # (0-0.7) k/uL Sodium (137-145) mmol/L Chloride (98-107) mmol/L BUN (7-17) mg/dL POC Glucose (mg/dL) 190 H 104 H 110 H (75-99) mg/dL Magnesium (1.6-2.3) mg/dL Total Protein (6.3-8.2) g/dL Albumin (3.5-5.0) g/dL 03/23/17 03/23/17 Range/Units 04:14 04:14 WBC 20.1 H (3.8-10.6) k/uL Neutrophils # 15.3 H (1.3-7.7) k/uL Monocytes # 1.4 H (0-1.0) k/uL Eosinophils # 0.8 H (0-0.7) k/uL Sodium 134 L (137-145) mmol/L Chloride 97 L (98-107) mmol/L BUN 41 H (7-17) mg/dL POC Glucose (mg/dL) (75-99) mg/dL Magnesium 2.4 H (1.6-2.3) mg/dL Total Protein 6.1 L (6.3-8.2) g/dL Albumin 3.4 L (3.5-5.0) g/dL Assessment and Plan Plan: 1. Acute hypoxic respiratory failure secondary to COPD exacerbation. 2. Acute COPD exacerbation: Patient placed on nebulizer treatments and prednisone. Pulmonary following 3. Acute tracheobronchitis: No pneumonia noted on chest x-ray. Patient currently on azithromycin. Patient has penicillin and Cipro ALLERGY 4. Right midlung nodule noted on chest x-ray. Suspected neoplasm. Status post fine needle aspirate lung biopsy with interventional radiology 5. Nicotine dependence: Patient placed on nicotine patch. Discussed smoking cessation for greater than 3 minutes. 6. History of rheumatoid arthritis resume patient's pain medications. 7. History of atrial fibrillation status post cardiac ablation 8. History of TIA 9. Hyperlipidemia continue statin 10. Mild dehydration noted on admission. Patient receiving IV fluids 11. Essential hypertension continue with metoprolol 12. Scoliosis of the lumbar spine and degenerative lumbar disc disease 13. 2 aneurysms of the thoracic aorta: Vascular surgery evaluated. No need for surgical intervention at this time 14. Mild protein calorie malnutrition continue protein supplement 15. Right-sided pneumothorax after biopsy of lung mass. Chest tube inserted. Patient has subcutaneous emphysema that involves her face neck chest back arms and abdomen. Patient required transfer to the ICU. She is showing improvement. Pulmonary and vascular are following. Chest tube suction currently off. GI prophylaxis Pepcid and DVT prophylaxis subcu heparin Patient to be transferred out of the ICU today to [facility]. She has been cleared for transfer to [facility] by vascular and pulmonary I performed an examination of the patient and discussed their management with the physician Nicker. I have reviewed the Physician Nicker's notes and agree with the documented findings and plan of care
[2017-03-23 11:56] LABS: Glucose,Whole Blood 132 mg/dL (75-99)
[2017-03-23] MEDS: AZITHROMYCIN 500 MG TAB PO SCH (12:11)
--- NOTE | 2017-03-23 12:54 | P.PN ---
Subjective Principal diagnosis: Exacerbation of COPD. Right upper lobe mass, status post fine-needle aspiration performed by interventional radiology. Post FNA patient developed right-sided pneumothorax. POD #4 placement of right pigtail catheter. Continuous air leak with development of significant subcu emphysema. Patient currently sitting up in bed. Appears to be in mild distress after significant coughing, but does come back down. Subcu emphysema appears to be resolving Objective - Vital Signs Vital signs: Vital Signs Temp 98.5 F 03/23/17 08:00 Pulse 64 03/23/17 12:00 Resp 18 03/23/17 12:00 BP 106/60 03/23/17 12:00 Pulse Ox 94 L 03/23/17 12:00 Intake & Output 03/22/17 03/23/17 03/23/17 18:59 06:59 18:59 Intake Total 680 780 340 Output Total 0 650 0 Balance 680 130 340 Weight 38.9 kg Intake: IV 10 0 0.9% NS FLUSH 10 ML 10 0 Oral 680 770 340 Output: Chest Tube Drainage 0 0 0 Right 0 0 0 Urine 0 650 0 Other: Voiding Method Bedpan Bedpan Bedpan # Voids 1 # Bowel Movements 1 - Constitutional General appearance: Present: cooperative, mild distress - Respiratory Details: Lungs sounds coarse bilaterally. Respirations even, nonlabored except after coughing. Currently on 4 L nasal cannula. Right pleural chest tube in place with minimal drainage. Air leak resolving. - Cardiovascular Details: S1, S2 present. Regular rate and rhythm, normal sinus rhythm on telemetry. - Gastrointestinal Gastrointestinal Comment(s): Abdomen soft, nontender, nondistended. Active bowel sounds 4 quadrants. Tolerating diet. - Genitourinary Genitourinary Comment(s): Voiding clear, yellow urine. - Musculoskeletal Musculoskeletal: Present: strength equal bilaterally - Psychiatric Psychiatric: Present: A&O x's 3, appropriate affect, intact judgment & insight - Allied health notes Allied health notes reviewed: nursing - Labs CBC & Chem 7: 03/23/17 04:14 03/23/17 04:14 Labs: Abnormal Lab Results - Last 24 Hours (Table) 03/22/17 03/22/17 03/23/17 Range/Units 17:40 21:38 04:14 WBC 20.1 H (3.8-10.6) k/uL Neutrophils # 15.3 H (1.3-7.7) k/uL Monocytes # 1.4 H (0-1.0) k/uL Eosinophils # 0.8 H (0-0.7) k/uL Sodium (137-145) mmol/L Chloride (98-107) mmol/L BUN (7-17) mg/dL POC Glucose (mg/dL) 104 H 110 H (75-99) mg/dL Magnesium (1.6-2.3) mg/dL Total Protein (6.3-8.2) g/dL Albumin (3.5-5.0) g/dL 03/23/17 03/23/17 Range/Units 04:14 11:55 WBC (3.8-10.6) k/uL Neutrophils # (1.3-7.7) k/uL Monocytes # (0-1.0) k/uL Eosinophils # (0-0.7) k/uL Sodium 134 L (137-145) mmol/L Chloride 97 L (98-107) mmol/L BUN 41 H (7-17) mg/dL POC Glucose (mg/dL) 132 H (75-99) mg/dL Magnesium 2.4 H (1.6-2.3) mg/dL Total Protein 6.1 L (6.3-8.2) g/dL Albumin 3.4 L (3.5-5.0) g/dL - Imaging and Cardiology Chest x-ray: report reviewed, image reviewed Assessment and Plan (1) Postprocedural pneumothorax Status: Acute (2) Acute exacerbation of chronic obstructive airways disease Status: Acute (3) Lung nodule Status: Acute Plan: The patient's air leak and subcu emphysema appear to be resolving. Chest tube was taken off suction and placed to waterseal. Path results are pending. We will follow with the patient for chest tube management. A lengthy discussion was had with the [id number] regarding the patient's progress. All questions were answered to the best of my ability. Time with Patient: Greater than 30
--- NOTE | 2017-03-23 14:05 | P.PN ---
Subjective Principal diagnosis: Iatrogenic right-sided pneumothorax following fine-needle aspiration of right upper lobe nodule. Severe COPD FEV1 of 31%. 77-year-old female patient, known to me due to her advanced COPD, tobacco smoking and increase in the right upper lobe speculated mass that was identified on the CAT scan of the chest. The patient came in to the hospital yesterday because of increased shortness of breath. She is a chronic cigarette smoker in she continues to smoke cigarettes on a daily basis. She became progressively shortness of breath and she was having congested cough chest tightness and wheezing. No fever or chills. No chest pain. No nausea. No vomiting. She was briefly placed on a BiPAP at a pressure of 10 over 5 cm of water and currently she is off the BiPAP and utilizing a simple face mask with 40% FiO2. She is not wearing her mask all the time her pulse ox is above 88%. Note that the patient has very poor lung capacity and based on the most recent measurement of her lung function, the patient had demonstrated significant drop in her lung function over the past 5 years with her FEV1 has dropped from 64% down to 31% and this is consistent with severe obstructive airway disease. I counseled this patient for smoking cessation. I offered her nicotine patches. She was restarted on Spiriva 1 inhalation a day. She was also asked to stay on a maintenance of Symbicort 160/4.52 puffs twice a day. As for the CAT scan of the chest, I saw an abnormality in the patient's chest x-ray and I ordered a computed tomography scan of the chest that showed moderate to severe emphysematous change bilaterally and there was a 2.5 x 1.6 cm right upper lobe nodule enlarging from previous evaluations and back in December 2016 this was measuring around 1.4 x 1.0 cm in size. As such there is a high suspicion that this may be cancerous. The patient also has an ascending aorta measuring 4.4 cm transversely and aorta just above the diaphragm measuring 5.4 x 5.1 cm in size. The patient has also markedly spurting and this narrowing with sclerosis of the level of T11 and T12. On 03/18/2017 I'm seeing this patient in follow-up. The patient is less short of breath compared to yesterday. No chest pain. Less bronchospastic and wheezy compared to yesterday. She is still on a combination of bronchodilators and systemic steroids. I discussed the case with interventional radiology and the patient should be able to have her lung mass needled under CAT scan guidance to establish a tissue diagnosis. On 03/19/2017, the patient underwent fine-needle aspirate of the right upper lobe mass. This was done by interventional radiology. Postop, the patient had developed a right-sided pneumothorax. I was aware of the pneumothorax as I reviewed the chest x-ray that was done immediately following the procedure. I discussed the case with interventional radiology and a pigtail catheter was inserted with successful reexpansion of the right lung. There was however development of a septic and his emphysema on the right. On 03/20/2017, the patient got moved to the intensive care unit in the car distributor hours. Overnight, at around 2:58 AM, the patient developed some worsening of the saphenous emphysema that extended from her right chest area to involve her upper chest bilaterally, and then neck and face and a saphenous emphysema with extensive to the point where the patient was unable to open her eyes. This started in his emphysema He is also felt in her upper extremity especially on the right. Despite all this, the patient remained hemodynamically stable. There was no signs of any airway compromise. She was saturating around 94-95% on 3 L of oxygen nasal cannula. Hemodynamically she remains stable and there was no hypotension. No chest pain reported. The right -sided pigtail catheter was in place and it was still showing signs of air leak as seen on the Pleur-evac. Based on this extensive hepatitis emphysematous got quite uncomfortable, the patient got transferred to the intensive care unit. I attended on this patient in ICU. I had a very lengthy discussion with the family who are very much worried about his condition and initially there were quite upset not understanding the sequence of events that led her to have the percutaneous emphysema and transferred to the intensive care units. In fact one of the daughters was very aggressive and I had a feeling that she did not want to accept the situation. I myself and the presence of my nurse practitioner, Christiane Dee, spent at least 2 hours with the family and talked to have a single family members including 3 daughters and . I made it clear that this is a anticipated complication of a fine-needle aspirate. I reviewed the series of chest x-rays and the most recent chest x-ray from this morning showed subcutaneous emphysema and despite the severity of the condition the right lung was well expanded and the tube itself was function was leaking care. I discussed this case at length with the cardiothoracic surgeon and I involve Dr. Yong Oviedo and decision making. We both felt that inserting a second chest tube may potentially induce trauma and may not improve her subcutaneous emphysema. As such we decided to keep the original pigtail catheter in place and introduce 2 incisions over the chest subcutaneously to deflate the subcutaneous emphysema. This was done at the bedside by Dr. Yong Oviedo and it resulted to significant improvement over the next few hours. At this point in time the extent of emphysema over the face and the neck is less. Meanwhile, I discussed the case with the pathologist and based on the pulmonary findings from the fine-needle aspirate the patient has abnormal malignant cells which probably is of a squamous cell in nature. I shared this with the daughters. At this point in time, the patient is resting comfortably in the intensive care unit. No signs of any respiratory distress. No wheeze of eczema wheezes of breathing. Hemodynamically stable. Afebrile. Still on bronchodilators. Still on IV Solu Medrol and doses been drop down to 40 g IV every 8 hours. On the patient is being seen in follow-up in the intensive care unit. She is much more comfortable compared to yesterday. The subcutaneous emphysema is improving and the patient's faces much deflated compared to yesterday and she is able to open up her eyes. Her chest x-ray from today shows no evidence of any pneumothorax. The pigtail catheter is still in place and the amount of air leak is improved compared to yesterday. She still on a wall suction. While , no signs of any respiratory distress. The patient is on 3 L of oxygen nasal cannula and his saturations around 94-95%. She is tolerating diet. She is on soft food for now. Hemodynamically stable. No change in mental status. No nausea. No vomiting. No chest pain. No other complaints otherwise. The subcutaneous incisions that were done over the anterior chest tender to touch. On 03/22/2017 the patient is being seen in follow-up. The air leak is improved significantly and the patient is having minimal air leak through the chest tube. Meanwhile the subcutaneous emphysema is essentially stable and if everything is gradually improving. Hemodynamically stable. She developed some oropharyngeal thrush and the patient is currently on oral Diflucan. The patient is on 3-4 L/m nasal cannula and her saturations above 92%. Chest x-ray from today shows no evidence of pneumothorax. The PICC line catheter remains in good location. There is a previous emphysema still present. Hemodynamically she is stable. Mentation is within normal. She is having some pain throughout her body and for that reason I'm going to increase his Dilaudid 1 mg every 3 hours on an as-needed basis. I again had a lengthy discussion with her and her daughter the bedside. On 03/23/2017, patient continues to have significant amount of subcutaneous emphysema, he has hardly any air leak, and the chest tube. Hence the tube was placed on waterseal, and suction was discontinued by surgery on the case. Patient is hemodynamically stable, she has occasional cough and wheezing, her O2 saturation remains in the low 90s on 3-4 L/m nasal cannula. No evidence of pneumothorax noted on the chest x-ray. Mentation seems to be intact. Patient had some pain and she is getting Dilaudid intermittently for chest pain. Today I had discussion with her daughter over the phone, and she has lots of questions as why she is she coughing. She is also asking why she was placed off suction, why is she and more pain today, and so on and so forth, basically I am sensing that the daughter is questioning the care of her mother. I suggested that we can definitely make arrangements for the patient to be transferred, or a could have another solar energy sales specialist take over the case. And solid questions that she has could be addressed with the surgeon. I tried to assure the daughter that the care that her mother is receiving is very appropriate, and would be no different if she was a family member of mine. However she was given the option of choosing to transfer the patient and I would be more than happy to do it, she was also given the option of having another solar energy sales specialist from another group take care of the patient. The daughter stated that she would like more time to think and she will let me know. Objective - Vital Signs Vital signs: Vital Signs Temp 98.5 F 03/23/17 08:00 Pulse 90 03/23/17 13:37 Resp 18 03/23/17 13:24 BP 106/60 03/23/17 12:00 Pulse Ox 94 L 03/23/17 12:00 Intake & Output 03/22/17 03/23/17 03/23/17 18:59 06:59 18:59 Intake Total 680 780 340 Output Total 0 650 0 Balance 680 130 340 Weight 38.9 kg Intake: IV 10 0 0.9% NS FLUSH 10 ML 10 0 Oral 680 770 340 Output: Chest Tube Drainage 0 0 0 Right 0 0 0 Urine 0 650 0 Other: Voiding Method Bedpan Bedpan Bedpan # Voids 1 # Bowel Movements 1 - Exam On general appearance, the patient has extensive subcutaneous emphysema over the had face neck upper chest and to lesser extent in the right upper extremity. Noted the upper extremity emphysema has improved. The face is also deflated and the patient is able to open up her eyes and seems much more comfortable compared to yesterday. The patient has no goiter or neck masses. Mucous membranes are moist and there is no thrush. No cervical or supraclavicular lymphadenopathy. Lung sounds are diminished bilaterally. Breath sounds are diminished in lung bases especially. This some few scattered expiratory wheeze otherwise breath other are equal and symmetrical. There is subcutaneous emphysema over the anterior chest and the pigtail catheter is in good position the right lower chest area.Cardiac exam revealed the PMI to be normally situated and sized. The rhythm was regular and no extrasystoles were noted during several minutes of auscultation. The first and second heart sounds were normal and physiologic splitting of the second heart sound was noted. There were no murmurs, rubs, clicks, or gallops.Abdominal exam revealed normal bowel sounds. The abdomen was soft, non-tender, and without masses, organomegaly , or appreciable enlargement of the abdominal aorta.Examination of the extremities revealed easily palpable radial, femoral and pedal pulses. There was no cyanosis, clubbing or edema. - Labs CBC & Chem 7: 03/23/17 04:14 03/23/17 04:14 Labs: Abnormal Lab Results - Last 24 Hours (Table) 03/22/17 03/22/17 03/23/17 Range/Units 17:40 21:38 04:14 WBC 20.1 H (3.8-10.6) k/uL Neutrophils # 15.3 H (1.3-7.7) k/uL Monocytes # 1.4 H (0-1.0) k/uL Eosinophils # 0.8 H (0-0.7) k/uL Sodium (137-145) mmol/L Chloride (98-107) mmol/L BUN (7-17) mg/dL POC Glucose (mg/dL) 104 H 110 H (75-99) mg/dL Magnesium (1.6-2.3) mg/dL Total Protein (6.3-8.2) g/dL Albumin (3.5-5.0) g/dL 03/23/17 03/23/17 Range/Units 04:14 11:55 WBC (3.8-10.6) k/uL Neutrophils # (1.3-7.7) k/uL Monocytes # (0-1.0) k/uL Eosinophils # (0-0.7) k/uL Sodium 134 L (137-145) mmol/L Chloride 97 L (98-107) mmol/L BUN 41 H (7-17) mg/dL POC Glucose (mg/dL) 132 H (75-99) mg/dL Magnesium 2.4 H (1.6-2.3) mg/dL Total Protein 6.1 L (6.3-8.2) g/dL Albumin 3.4 L (3.5-5.0) g/dL Assessment and Plan Plan: 1 severe COPD with an FEV1 of 31% of predicted at baseline 2 acute COPD exacerbation, improving. 3 right upper lobe mass measuring 2.5 x 1.6 cm in size, enlarging in size, spiculated, very much suggestive of underlying lung cancer. 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 4 Iatrogenic right-sided pneumothorax post fine-needle aspirate of the right upper lobe. The procedure was done by interventional radiology. Immediately a pigtail catheter was inserted and this was further appreciated by extensive subcutaneous emphysema involving the head face neck and upper chest. The chest x-ray as well inflated and there is no evidence of any residual pneumothorax. There is positive air leak within the chest tube. The chest tube is attached to the wall suction. Subcutaneous incisions were done over the anterior chest to deflate the saphenous emphysema. On 03/21/2017, the patient is much more comfortable compared to yesterday. No worsening in her condition and the extent of subcutaneous emphysema in the face is improving. The amount of air leak from the chest was also improved although that is still some ongoing leak as witnessed. The patient maze hemodynamically stable. The chest x-ray from today shows adequate expansion of the right lung and there is no evidence of any pneumothorax. No other active issues for now and the patient will be kept in the intensive care unit for further monitoring. On 03/22/2017, the patient is stable. Air leak from the chest tube is improved. Subcutaneous emphysema is gradually improving. No significant shortness of breath. She is on a 30 g of prednisone as part of a burst taper. She is using incentive spirometer. No significant respiratory distress. CT surgery is on the case. On 03/23/2017, patient remains stable, chest tube is off suction and on waterseal at present. Subcutaneous emphysema is improving. Continues to have a lot of pain on palpation of the chest wall. Remains on bronchodilators, and she is not in respiratory distress at present. I ordered a follow-up chest x-ray a few hours after chest tube was placed on waterseal. And that is pending at this point. 5 chronic smoker 6 abnormal weight loss 7 aneurysm of the thoracic aorta both ascending and descending 8 hypertension 9 hyperlipidemia 10 scoliosis of the lumbar spine 11 degenerative lumbar disc disease 12. Pharyngeal thrush, currently on oral Diflucan 13 chronic pain Recommendation: Continue present supportive care measures, his cost the condition with the daughter was questioning or at least and sensing that she is questioning the care and I suggested either transferring the patient to a tertiary care center or could have another pulmonary group take care of her mother. At this point she is undecided as to what to do, but she will get back to me and let me know. Pathology is pending, hopefully would have an answer on the pathology report some time today. Critical care time is 32 minutes. Discussed her condition also with Dr. June earlier today, and I also discussed her condition with the cardiothoracic surgeon on the case. . Time with Patient: Greater than 30
--- NOTE | 2017-03-23 14:28 | XR ---
EXAMINATION TYPE: XR chest 1V portable DATE OF EXAM: 03/23/2017 2:16 PM HISTORY: ptx. REFERENCE: Previous study of earlier today. FINDINGS: There is extensive subcutaneous emphysema present. There is a pigtail catheter in the right pleural space. No definite pneumothorax is seen. There continues to be a rounded opacity in the right midlung. Consistent with a pulmonary nodule. The re is blunting of both CP angles. I could not exclude small effusions. IMPRESSION: STABLE APPEARANCE TO THE CHEST.
[2017-03-23 16:46] LABS: Glucose,Whole Blood 170 mg/dL (75-99)
[2017-03-23] MEDS: NICOTINE 14MG/24HR PATCH TRANSDERM SCH (17:33)
[2017-03-23] MEDS: ATORVASTATIN 40 MG TAB PO SCH (21:29)
[2017-03-23 21:42] LABS: Glucose,Whole Blood 211 mg/dL (75-99)
[2017-03-24] MEDS: HYDROmorphone 1 MG/ML 1 ML SYRINGE IVP PRN ×8 (02:11→21:52)
[2017-03-24 06:20] LABS: Glucose,Whole Blood 101 mg/dL (75-99)
[2017-03-24 06:43] LABS: Basophils # (A) 0.1 k/uL (0-0.2); Basophils % (A) 0 %; CH 27.7; CHCM 31.2; Eosinophils # (A) 0.5 k/uL (0-0.7); Eosinophils % (A) 3 %; HDW 2.31; HGB 11.7 gm/dL (11.4-16.0); Hypochromasia Slight; Luc # (Auto) 0.29; Luc % (Auto) 2; Lymphocytes # (A) 2.7 k/uL (1.0-4.8); Lymphocytes % (A) 16 %; MCHC 31.5 g/dL (31.0-37.0); MCV 88.9 fL (80.0-100.0); Mean Platelet Volume 6.9; Monocytes % (A) 6 %; Neutrophils # (A) 12.4 k/uL (1.3-7.7); Neutrophils % (A) 73 %; RBC 4.17 m/uL (3.80-5.40); RDW 13.5 % (11.5-15.5)
[2017-03-24] MEDS: INSULIN LISPRO (humaLOG) 300 UNIT/3 ML VIAL SQ SCH ×4 (06:44→21:45)
[2017-03-24 06:56] LABS: ALT 37 U/L (9-52); AST 25 U/L (14-36); Alkaline Phosphatase 86 U/L (38-126); Anion Gap 4 mmol/L; Blood Urea Nitrogen 34 mg/dL (7-17); Calcium 9.1 mg/dL (8.4-10.2); Carbon Dioxide 33 mmol/L (22-30); Chloride 95 mmol/L (98-107); Glucose 83 mg/dL (74-99); Non-African American GFR(MDRD) >60 (>60 ml/min/1.73 sqM); Potassium 4.5 mmol/L (3.5-5.1); Sodium 132 mmol/L (137-145); Total Bilirubin 0.4 mg/dL (0.2-1.3); Total Protein 5.5 g/dL (6.3-8.2)
[2017-03-24] MEDS: IPRATROPIUM-ALBUTEROL 3 ML NEB INHALATION SCH ×4 (08:09→19:40)
[2017-03-24] MEDS: HEPARIN SODIUM,PORCINE 5,000 UNIT/ML 1 ML VIAL SQ SCH ×2 (08:12→21:44)
[2017-03-24] MEDS: predniSONE 10 MG TAB PO SCH (08:12)
[2017-03-24] MEDS: diphenhydrAMINE 50 MG CAP PO SCH ×3 (08:12→21:46)
[2017-03-24] MEDS: FAMOTIDINE 20 MG TAB PO SCH (08:12)
[2017-03-24] MEDS: METOPROLOL SUCCINATE (ER) 25 MG TAB.ER.24H PO SCH (08:12)
[2017-03-24] MEDS: FLUCONAZOLE 100 MG TAB PO SCH (08:12)
[2017-03-24] MEDS: oxyCODONE ER 15 MG TAB.ER.12H PO SCH ×2 (08:13→21:52)
[2017-03-24] MEDS ORDERED: RX INFO: IV CONTRAST WAS GIVEN 1 EACH MISC MISCELLANE PRN ×2 (09:04→17:29)
[2017-03-24] MEDS: ALPRAZolam 0.25 MG TAB PO PRN (10:36)
--- NOTE | 2017-03-24 11:26 | CT ---
EXAMINATION TYPE: CT brain w con DATE OF EXAM: 03/24/2017 10:24 AM COMPARISON: 11/13/2010 HISTORY: 67-year-old female with squamous Cell CA CT DLP: 595 mGycm Automated exposure control for dose reduction was used. CONTRAST: CT scan of the head is performed with IV Contrast, patient injected with 100 mL of Omnipaque 300. Cor onal/sagittal reconstructions performed. FINDINGS: There is no abnormal enhancing mass or midline shift identified. The ventricles and sulci are within normal limits in size. There is mild generalized supratentorial volume loss. Mild patchy periventric ular and deep white matter hypodensities are noted. Old lacunar infarct left basal ganglia ganglia an d subinsular white matter on the left. Hypodensity in the posterior left parietal lobe suspected to r epresent an area of old infarct but appears to be new from 2009. The globes are intact and the visual ized sinuses are clear. Severe extensive subcutaneous emphysema extending up circumferentially to the lateral aspect of the h ead. IMPRESSION: 1. Some new hypodensity posterior left parietal lobe suspected to represent an old infarct. However, as this appears to be new from 11/13/2010, the possibility of vasogenic edema and a subtle underlying lesion is not entirely excluded. MRI can provide more sensitive evaluation. 2. Severe subcutaneous emphysema throughout all of the fascial planes tracking up to the mid calvariu m.
--- NOTE | 2017-03-24 11:33 | XR ---
EXAMINATION TYPE: XR chest 2V DATE OF EXAM: 03/24/2017 10:22 AM COMPARISON: Chest x-ray from yesterday. HISTORY: Pneumothorax per order. TECHNIQUE: Frontal and lateral views of the chest are obtained. FINDINGS: Patient is more rotated to right of midline on current study making evaluation suboptimal. There is extensive overlying subcutaneous emphysema making evaluation suboptimal extending into bilat eral neck and abdomen as well as bilateral upper extremities. There is persistent right basilar later al pigtail pleural drainage catheter. Evaluation for pneumothorax is suboptimal secondary to overlyin g extensive subcutaneous emphysema. Right midlung nodule laterally is slightly more medial position s uggesting a small right lateral pneumothorax may still be present. There is worsening or developing b ibasilar atelectasis and/or infiltrate. Cardiac silhouette size is within normal limits with ectatic thoracic aorta. Surgical change cervical thoracic junction is redemonstrated. Impression: Suboptimal due to overlying extensive subcutaneous emphysema. Cannot exclude small right -sided pneumothorax despite basilar pleural drainage catheter placement. Developing bibasilar atelect asis and/or infiltrate is noted. Progress study advised.
[2017-03-24 11:37] LABS: Glucose,Whole Blood 154 mg/dL (75-99)
[2017-03-24 11:49] VITALS: BMI 20.7
[2017-03-24] MEDS: AZITHROMYCIN 500 MG TAB PO SCH (12:30)
--- NOTE | 2017-03-24 12:34 | P.CONS ---
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 77-year-old female patient smoker with severe COPD and a FEV1 of 31%. She presented to the hospital with increased shortness of breath and worsening congestion and was briefly placed on a BiPAP. She is currently stable with nasal cannula. CT scan performed on 03/11/2017 identified significant enlargement in the right upper nodule measuring 1.4 cm x 1 cm in December 2016 and now 2.5 x 1.6 cm. There was no evidence of greater than 1 cm hilar or mediastinal nodes. She underwent CT-guided FNA on 03/19/2017 and unfortunately did have a pneumothorax. Pathology returned as squamous cell carcinoma. On 2016 CT of the brain did identify a new hypodensity in the posterior left parietal lobe suspected to likely represent an old infarct. Meanwhile the subcutaneous emphysema and pneumothorax are gradually improving. Overall x-rays that she appears to be doing quite well. Her breathing is stable. She denies any hemoptysis. She denies any significant weight loss headaches or confusion. The daughter was present today and is quite happy with the improvement her mother is making. Review of Systems Constitutional: Reports chills, Reports fatigue Eyes: denies blurred vision, denies decreased vision Ears, nose, mouth and throat: Reports ant. neck pain Cardiovascular: Denies chest pain, Denies shortness of breath Respiratory: Reports dyspnea, Reports home oxygen Gastrointestinal: Denies abdominal pain, Denies diarrhea, Denies nausea, Denies vomiting Musculoskeletal: Reports low back pain, Reports neck pain, Reports neck stiffness Past Medical History Past Medical History: Atrial Fibrillation, COPD, Osteoarthritis (OA) Additional Past Medical History / Comment(s): Advanced COPD, right upper lobe mass measuring 2.5 x 1.6 cm in size, degenerative lumbar disc disease, scoliosis of the lumbar spine, history of TIA, aneurysm of the thoracic aorta, hypertension, hyperlipidemia, chronic pain, rheumatoid arthritis, smoker, cachexia with ongoing weight loss, atrial fibrillation postcardiac ablation History of Any Multi-Drug Resistant Organisms: None Reported Past Surgical History: Orthopedic Surgery Additional Past Surgical History / Comment(s): cardiac ablation, previous cervical spine fusion and hernia repair Past Psychological History: No Psychological Hx Reported Smoking Status: Current every day smoker Medications and Allergies Home Medications Medication Instructions Recorded Confirmed Type Albuterol Nebulized [Ventolin 2.5 mg INHALATION RT-Q4H PRN 03/16/17 03/16/17 History Nebulized] Albuterol Sulfate [Proair Hfa] 2 puff INHALATION RT-Q4H PRN 03/16/17 03/16/17 History Atorvastatin Calcium [Lipitor] 40 mg PO HS 03/16/17 03/16/17 History Fluticasone Propionate [Flovent 2 puff INHALATION RT-BID 03/16/17 03/16/17 History Hfa 220MCG] Metoprolol Succinate (ER) [Toprol 25 mg PO DAILY 03/16/17 03/16/17 History Xl] diphenhydrAMINE HCL [Benadryl] 50 mg PO TID 03/16/17 03/16/17 History oxyCODONE HCL 7.5 mg PO BID 03/16/17 03/16/17 History oxyCODONE HCL [OxyCONTIN] 30 mg PO BID 03/16/17 03/16/17 History Allergies Allergy/AdvReac Type Severity Reaction Status Date / Time ciprofloxacin [From Cipro] Allergy Unknown Verified 03/16/17 12:55 Penicillins Allergy Unknown Verified 03/16/17 12:50 STEROIDS Allergy Unknown Uncoded 03/16/17 12:55 Physical Exam Vitals: Vital Signs Temp Pulse Resp BP Pulse Ox 03/24/17 11:53 96 03/24/17 11:37 94 03/24/17 08:28 20 03/24/17 08:22 96 03/24/17 08:11 95 03/24/17 01:00 77 11 L 110/68 93 L 03/24/17 00:00 97.6 F 75 19 97/58 96 03/23/17 23:00 91 32 H 134/64 95 03/23/17 22:34 91 29 H 126/74 96 03/23/17 22:00 94 25 H 126/74 97 03/23/17 21:00 80 26 H 98/58 91 L 03/23/17 20:00 102 H 25 H 98/58 96 03/23/17 19:00 93 20 126/64 93 L 03/23/17 18:00 89 32 H 152/91 95 03/23/17 17:00 104 H 30 H 144/72 95 03/23/17 16:41 96 03/23/17 16:26 96 97 03/23/17 16:00 105 H 28 H 128/64 94 L 03/23/17 15:00 99 28 H 140/66 94 L 03/23/17 14:00 94 26 H 119/70 96 03/23/17 13:37 90 03/23/17 13:24 92 18 03/23/17 13:00 98.2 F 94 30 H 135/71 94 L 03/23/17 12:00 64 18 106/60 94 L Intake and Output 03/23/17 03/24/17 03/24/17 22:59 06:59 14:59 Intake Total 370 0 240 Output Total 0 0 0 Balance 370 0 240 Intake: IV 10 0.9% NS FLUSH 10 ML 10 Oral 360 0 240 Output: Chest Tube Drainage 0 0 0 Right 0 0 0 Urine 0 0 Other: Voiding Method Bedpan Bedpan Bedpan Weight 45 kg 45 kg Patient Weight 03/25/17 06:59 Weight 45 kg Results CBC & Chem 7: 03/24/17 06:01 03/24/17 06:01 Labs: Abnormal Lab Results - Last 24 Hours (Table) 03/23/17 03/23/17 03/24/17 Range/Units 16:44 21:40 06:01 WBC 17.0 H (3.8-10.6) k/uL Neutrophils # 12.4 H (1.3-7.7) k/uL Sodium (137-145) mmol/L Chloride (98-107) mmol/L Carbon Dioxide (22-30) mmol/L BUN (7-17) mg/dL POC Glucose (mg/dL) 170 H 211 H (75-99) mg/dL Total Protein (6.3-8.2) g/dL Albumin (3.5-5.0) g/dL 03/24/17 03/24/17 03/24/17 Range/Units 06:01 06:19 11:29 WBC (3.8-10.6) k/uL Neutrophils # (1.3-7.7) k/uL Sodium 132 L (137-145) mmol/L Chloride 95 L (98-107) mmol/L Carbon Dioxide 33 H (22-30) mmol/L BUN 34 H (7-17) mg/dL POC Glucose (mg/dL) 101 H 154 H (75-99) mg/dL Total Protein 5.5 L (6.3-8.2) g/dL Albumin 3.0 L (3.5-5.0) g/dL Assessment and Plan (1) Lung nodule Status: Acute Plan: is a 67-year-old female with severe COPD with an FEV1 of 31%. She did have a complicated hospital course after biopsy of the right upper lobe squamous cell carcinoma. She appears at this time to be recovering quite well from her subcutaneous emphysema and pneumothorax. I discussed on today's visit with both the patient and her daughter the general work up for lung cancer. We did discuss the potential that this is an early stage non-small cell lung cancer that could be definitively managed with stereotactic radiosurgery. I've expressed that her current condition requires significant improvement prior to the initiation of definitive therapy for this malignancy. I therefore scheduled a follow-up appointment with Ms. Mason on April 02, 2017 for additional discussion regards to management of this disease. She is likely to undergo outpatient PET/CT. The family is in agreement with this plan.
--- NOTE | 2017-03-24 13:40 | P.PN ---
Subjective Principal diagnosis: Exacerbation of COPD. Right upper lobe mass, status post fine-needle aspiration performed by interventional radiology. Post FNA patient developed right-sided pneumothorax. POD #4 placement of right pigtail catheter. Continuous air leak with development of significant subcu emphysema. Patient currently sitting up in bed, no apparent distress. Subcu emphysema appears to be resolving. Chest tube clamped this morning without any increase in subcu emphysema. Patient states she is feeling much better. Objective - Vital Signs Vital signs: Vital Signs Temp 97.6 F 03/24/17 00:00 Pulse 96 03/24/17 11:53 Resp 20 03/24/17 08:28 BP 110/68 03/24/17 01:00 Pulse Ox 93 L 03/24/17 01:00 Intake & Output 03/23/17 03/24/17 03/24/17 18:59 06:59 18:59 Intake Total 820 130 480 Output Total 0 0 0 Balance 820 130 480 Weight 45 kg 45 kg Intake: IV 0 10 0.9% NS FLUSH 10 ML 0 10 Oral 820 120 480 Output: Chest Tube Drainage 0 0 0 Right 0 0 0 Urine 0 0 Other: Voiding Method Bedpan Bedpan Bedpan # Voids 1 - Constitutional General appearance: Present: cooperative, no acute distress - Respiratory Details: Lungs sounds diminished bilaterally. Respirations even, nonlabored. Currently on room air with oxygen saturation 93%. Right pleural chest tube clamped. - Cardiovascular Details: S1, S2 present. Regular rate and rhythm, normal sinus rhythm on telemetry. - Gastrointestinal Gastrointestinal Comment(s): Abdomen soft, nontender, nondistended. Active bowel sounds 4 quadrants. Tolerating diet. - Genitourinary Genitourinary Comment(s): Continues to void clear, yellow urine. - Musculoskeletal Musculoskeletal: Present: gait normal, strength equal bilaterally - Psychiatric Psychiatric: Present: A&O x's 3, appropriate affect, intact judgment & insight - Allied health notes Allied health notes reviewed: nursing - Labs CBC & Chem 7: 03/24/17 06:01 03/24/17 06:01 Labs: Abnormal Lab Results - Last 24 Hours (Table) 03/23/17 03/23/17 03/24/17 Range/Units 16:44 21:40 06:01 WBC 17.0 H (3.8-10.6) k/uL Neutrophils # 12.4 H (1.3-7.7) k/uL Sodium (137-145) mmol/L Chloride (98-107) mmol/L Carbon Dioxide (22-30) mmol/L BUN (7-17) mg/dL POC Glucose (mg/dL) 170 H 211 H (75-99) mg/dL Total Protein (6.3-8.2) g/dL Albumin (3.5-5.0) g/dL 03/24/17 03/24/17 03/24/17 Range/Units 06:01 06:19 11:29 WBC (3.8-10.6) k/uL Neutrophils # (1.3-7.7) k/uL Sodium 132 L (137-145) mmol/L Chloride 95 L (98-107) mmol/L Carbon Dioxide 33 H (22-30) mmol/L BUN 34 H (7-17) mg/dL POC Glucose (mg/dL) 101 H 154 H (75-99) mg/dL Total Protein 5.5 L (6.3-8.2) g/dL Albumin 3.0 L (3.5-5.0) g/dL - Imaging and Cardiology Chest x-ray: report reviewed, image reviewed Assessment and Plan (1) Postprocedural pneumothorax Status: Acute (2) Acute exacerbation of chronic obstructive airways disease Status: Acute (3) Lung nodule Status: Acute Plan: The patient's air leak and subcu emphysema appear to be resolving. Chest tube clamped this morning. If the air leak is resolved we will remove chest tube today. Path results demonstrate squamous cell carcinoma. Oncology and radiation oncology following patient. Time with Patient: Greater than 30
--- NOTE | 2017-03-24 13:54 | P.PN ---
Subjective Principal diagnosis: Exacerbation of chronic obstructive pulmonary disease Patient is a 67-year-old female was known history of advanced COPD and lung mass will presented to [facility] was worsening shortness of breath admitted to telemetry floor she was started on IV antibiotic IV steroids and inhaled bronchodilators she improved significantly since yesterday. Patient is status post CT-guided fine-needle aspiration of right lung mass. However she did develop a 50% pneumothorax on the right side and chest tube needed to be placed. Chest x-ray from today showing no gross pneumothorax with extensive worsening subcutaneous emphysema over bilateral chest wall. Patient has a subcutaneous emphysema all he up through her neck and into her face. She is unable to open her eyes. There is swelling even in the back arms and abdomen. Patient will be transferred to the ICU. She did require to be placed on 5 L nasal cannula. Pulmonary service has been notified as well as interventional radiology in regards to the air leak. Patient is able to talk. She denies any chest pain. Denies any shortness of breath. Patient was admitted to intensive care unit was stabilized and was transferred back to telemetry floor. Objective - Vital Signs Vital signs: Vital Signs Temp 97.6 F 03/24/17 00:00 Pulse 96 03/24/17 11:53 Resp 20 03/24/17 08:28 BP 110/68 03/24/17 01:00 Pulse Ox 93 L 03/24/17 01:00 Intake & Output 03/23/17 03/24/17 03/24/17 18:59 06:59 18:59 Intake Total 820 130 480 Output Total 0 0 0 Balance 820 130 480 Weight 45 kg 45 kg Intake: IV 0 10 0.9% NS FLUSH 10 ML 0 10 Oral 820 120 480 Output: Chest Tube Drainage 0 0 0 Right 0 0 0 Urine 0 0 Other: Voiding Method Bedpan Bedpan Bedpan # Voids 1 - Exam In general patient is alert and oriented 3 in no apparent distress HEENT head normocephalic and atraumatic Neck is supple no JVD no goiter no lymphadenopathy Chest exam reveals a scattered crackles bilaterally no wheezing Cardiac exam reveals regular heart sounds no murmurs Abdomen is soft nontender no organomegaly Extremity exam reveals no edema no cyanosis or clubbing - Labs CBC & Chem 7: 03/24/17 06:01 03/24/17 06:01 Labs: Abnormal Lab Results - Last 24 Hours (Table) 03/23/17 03/23/17 03/24/17 Range/Units 16:44 21:40 06:01 WBC 17.0 H (3.8-10.6) k/uL Neutrophils # 12.4 H (1.3-7.7) k/uL Sodium (137-145) mmol/L Chloride (98-107) mmol/L Carbon Dioxide (22-30) mmol/L BUN (7-17) mg/dL POC Glucose (mg/dL) 170 H 211 H (75-99) mg/dL Total Protein (6.3-8.2) g/dL Albumin (3.5-5.0) g/dL 03/24/17 03/24/17 03/24/17 Range/Units 06:01 06:19 11:29 WBC (3.8-10.6) k/uL Neutrophils # (1.3-7.7) k/uL Sodium 132 L (137-145) mmol/L Chloride 95 L (98-107) mmol/L Carbon Dioxide 33 H (22-30) mmol/L BUN 34 H (7-17) mg/dL POC Glucose (mg/dL) 101 H 154 H (75-99) mg/dL Total Protein 5.5 L (6.3-8.2) g/dL Albumin 3.0 L (3.5-5.0) g/dL Assessment and Plan Plan: 1. Acute hypoxic respiratory failure secondary to COPD exacerbation. Patient had significant improvement since yesterday, continue was current management with IV steroids and inhaled bronchodilators 2. Acute COPD exacerbation: Patient placed on nebulizer treatments and IV Solu- Medrol. Pulmonary service consulted 3. Acute tracheobronchitis: No pneumonia noted on chest x-ray. Patient currently on azithromycin. Patient has penicillin and Cipro ALLERGY 4. Right midlung nodule noted on chest x-ray. Suspected neoplasm. Pulmonary service consulted, status post percutaneous needle biopsy with subsequent pneumothorax requiring chest tube placement and air leak causing cutaneous emphysema patient improved. 5. Nicotine dependence: Patient placed on nicotine patch. Discussed smoking cessation for greater than 3 minutes. 6. History of rheumatoid arthritis resume patient's pain medications. 7. History of atrial fibrillation status post cardiac ablation 8. History of TIA 9. Hyperlipidemia continue statin 10. Mild dehydration noted on admission. Patient receiving IV fluids 11. Essential hypertension continue with metoprolol 12. Lower back pain and lump along the right side of her spine.
--- NOTE | 2017-03-24 15:16 | P.PN ---
Subjective Principal diagnosis: Iatrogenic right-sided pneumothorax following fine-needle aspiration of right upper lobe nodule. Severe COPD FEV1 of 31%. 77-year-old female patient, known to me due to her advanced COPD, tobacco smoking and increase in the right upper lobe speculated mass that was identified on the CAT scan of the chest. The patient came in to the hospital yesterday because of increased shortness of breath. She is a chronic cigarette smoker in she continues to smoke cigarettes on a daily basis. She became progressively shortness of breath and she was having congested cough chest tightness and wheezing. No fever or chills. No chest pain. No nausea. No vomiting. She was briefly placed on a BiPAP at a pressure of 10 over 5 cm of water and currently she is off the BiPAP and utilizing a simple face mask with 40% FiO2. She is not wearing her mask all the time her pulse ox is above 88%. Note that the patient has very poor lung capacity and based on the most recent measurement of her lung function, the patient had demonstrated significant drop in her lung function over the past 5 years with her FEV1 has dropped from 64% down to 31% and this is consistent with severe obstructive airway disease. I counseled this patient for smoking cessation. I offered her nicotine patches. She was restarted on Spiriva 1 inhalation a day. She was also asked to stay on a maintenance of Symbicort 160/4.52 puffs twice a day. As for the CAT scan of the chest, I saw an abnormality in the patient's chest x-ray and I ordered a computed tomography scan of the chest that showed moderate to severe emphysematous change bilaterally and there was a 2.5 x 1.6 cm right upper lobe nodule enlarging from previous evaluations and back in December 2016 this was measuring around 1.4 x 1.0 cm in size. As such there is a high suspicion that this may be cancerous. The patient also has an ascending aorta measuring 4.4 cm transversely and aorta just above the diaphragm measuring 5.4 x 5.1 cm in size. The patient has also markedly spurting and this narrowing with sclerosis of the level of T11 and T12. On 03/18/2017 I'm seeing this patient in follow-up. The patient is less short of breath compared to yesterday. No chest pain. Less bronchospastic and wheezy compared to yesterday. She is still on a combination of bronchodilators and systemic steroids. I discussed the case with interventional radiology and the patient should be able to have her lung mass needled under CAT scan guidance to establish a tissue diagnosis. On 03/19/2017, the patient underwent fine-needle aspirate of the right upper lobe mass. This was done by interventional radiology. Postop, the patient had developed a right-sided pneumothorax. I was aware of the pneumothorax as I reviewed the chest x-ray that was done immediately following the procedure. I discussed the case with interventional radiology and a pigtail catheter was inserted with successful reexpansion of the right lung. There was however development of a septic and his emphysema on the right. On 03/20/2017, the patient got moved to the intensive care unit in the screen writer hours. Overnight, at around 2:58 AM, the patient developed some worsening of the saphenous emphysema that extended from her right chest area to involve her upper chest bilaterally, and then neck and face and a saphenous emphysema with extensive to the point where the patient was unable to open her eyes. This started in his emphysema He is also felt in her upper extremity especially on the right. Despite all this, the patient remained hemodynamically stable. There was no signs of any airway compromise. She was saturating around 94-95% on 3 L of oxygen nasal cannula. Hemodynamically she remains stable and there was no hypotension. No chest pain reported. The right -sided pigtail catheter was in place and it was still showing signs of air leak as seen on the Pleur-evac. Based on this extensive hepatitis emphysematous got quite uncomfortable, the patient got transferred to the intensive care unit. I attended on this patient in ICU. I had a very lengthy discussion with the family who are very much worried about his condition and initially there were quite upset not understanding the sequence of events that led her to have the percutaneous emphysema and transferred to the intensive care units. In fact one of the daughters was very aggressive and I had a feeling that she did not want to accept the situation. I myself and the presence of my nurse practitioner, Christiane Dee, spent at least 2 hours with the family and talked to have a single family members including 3 daughters and . I made it clear that this is a anticipated complication of a fine-needle aspirate. I reviewed the series of chest x-rays and the most recent chest x-ray from this morning showed subcutaneous emphysema and despite the severity of the condition the right lung was well expanded and the tube itself was function was leaking care. I discussed this case at length with the cardiothoracic surgeon and I involve Dr. Yong Oviedo and decision making. We both felt that inserting a second chest tube may potentially induce trauma and may not improve her subcutaneous emphysema. As such we decided to keep the original pigtail catheter in place and introduce 2 incisions over the chest subcutaneously to deflate the subcutaneous emphysema. This was done at the bedside by Dr. Yong Oviedo and it resulted to significant improvement over the next few hours. At this point in time the extent of emphysema over the face and the neck is less. Meanwhile, I discussed the case with the pathologist and based on the pulmonary findings from the fine-needle aspirate the patient has abnormal malignant cells which probably is of a squamous cell in nature. I shared this with the daughters. At this point in time, the patient is resting comfortably in the intensive care unit. No signs of any respiratory distress. No wheeze of eczema wheezes of breathing. Hemodynamically stable. Afebrile. Still on bronchodilators. Still on IV Solu Medrol and doses been drop down to 40 g IV every 8 hours. On the patient is being seen in follow-up in the intensive care unit. She is much more comfortable compared to yesterday. The subcutaneous emphysema is improving and the patient's faces much deflated compared to yesterday and she is able to open up her eyes. Her chest x-ray from today shows no evidence of any pneumothorax. The pigtail catheter is still in place and the amount of air leak is improved compared to yesterday. She still on a wall suction. While , no signs of any respiratory distress. The patient is on 3 L of oxygen nasal cannula and his saturations around 94-95%. She is tolerating diet. She is on soft food for now. Hemodynamically stable. No change in mental status. No nausea. No vomiting. No chest pain. No other complaints otherwise. The subcutaneous incisions that were done over the anterior chest tender to touch. On 03/22/2017 the patient is being seen in follow-up. The air leak is improved significantly and the patient is having minimal air leak through the chest tube. Meanwhile the subcutaneous emphysema is essentially stable and if everything is gradually improving. Hemodynamically stable. She developed some oropharyngeal thrush and the patient is currently on oral Diflucan. The patient is on 3-4 L/m nasal cannula and her saturations above 92%. Chest x-ray from today shows no evidence of pneumothorax. The PICC line catheter remains in good location. There is a previous emphysema still present. Hemodynamically she is stable. Mentation is within normal. She is having some pain throughout her body and for that reason I'm going to increase his Dilaudid 1 mg every 3 hours on an as-needed basis. I again had a lengthy discussion with her and her daughter the bedside. On 03/23/2017, patient continues to have significant amount of subcutaneous emphysema, he has hardly any air leak, and the chest tube. Hence the tube was placed on waterseal, and suction was discontinued by surgery on the case. Patient is hemodynamically stable, she has occasional cough and wheezing, her O2 saturation remains in the low 90s on 3-4 L/m nasal cannula. No evidence of pneumothorax noted on the chest x-ray. Mentation seems to be intact. Patient had some pain and she is getting Dilaudid intermittently for chest pain. Today I had discussion with her daughter over the phone, and she has lots of questions as why she is she coughing. She is also asking why she was placed off suction, why is she and more pain today, and so on and so forth, basically I am sensing that the daughter is questioning the care of her mother. I suggested that we can definitely make arrangements for the patient to be transferred, or a could have another vaccines solutions specialist take over the case. And solid questions that she has could be addressed with the surgeon. I tried to assure the daughter that the care that her mother is receiving is very appropriate, and would be no different if she was a family member of mine. However she was given the option of choosing to transfer the patient and I would be more than happy to do it, she was also given the option of having another vaccines solutions specialist from another group take care of the patient. The daughter stated that she would like more time to think and she will let me know. On 03/24/2017, patient is feeling and doing much better. Chest x-ray showed complete expansion of the right lung, and there is less and less subcutaneous emphysema. Pain seems to be better controlled, and shortness of breath is significantly improved. Today I had a long discussion again with the daughter and explained to her all the clinical issues that I have addressed since I have been taking care of her mother over the last 2 days. Family was even made aware yesterday by Dr. June of all the clinical issues and all their questions were answered to their satisfaction. I explained to the daughter today that we will eventually have the patient followed by radiation oncology and by oncology, however on outpatient basis, patient will be followed by Dr. June until she establishes care with another vaccines solutions specialist from another group. Absent were reviewed from today, and they seem to be relatively unremarkable. Objective - Vital Signs Vital signs: Vital Signs Temp 97.6 F 03/24/17 00:00 Pulse 96 03/24/17 11:53 Resp 20 03/24/17 08:28 BP 110/68 03/24/17 01:00 Pulse Ox 93 L 03/24/17 01:00 Intake & Output 03/23/17 03/24/17 03/24/17 18:59 06:59 18:59 Intake Total 820 130 480 Output Total 0 0 0 Balance 820 130 480 Weight 45 kg 45 kg Intake: IV 0 10 0.9% NS FLUSH 10 ML 0 10 Oral 820 120 480 Output: Chest Tube Drainage 0 0 0 Right 0 0 0 Urine 0 0 Other: Voiding Method Bedpan Bedpan Bedpan # Voids 1 - Exam On general appearance, the patient has less extensive subcutaneous emphysema over the had face neck upper chest and to lesser extent in the right upper extremity. Noted the upper extremity emphysema has improved. patient is able to open up her eyes and seems much more comfortable compared to last 2 days.. The patient has no goiter or neck masses. Mucous membranes are moist and there is no thrush. No cervical or supraclavicular lymphadenopathy. Lung sounds are diminished bilaterally. Breath sounds are diminished in lung bases especially. This some few scattered expiratory wheeze otherwise breath other are equal and symmetrical. There is subcutaneous emphysema over the anterior chest and the pigtail catheter is in good position the right lower chest area.Cardiac exam revealed the PMI to be normally situated and sized. The rhythm was regular and no extrasystoles were noted during several minutes of auscultation. The first and second heart sounds were normal and physiologic splitting of the second heart sound was noted. There were no murmurs, rubs, clicks, or gallops.Abdominal exam revealed normal bowel sounds. The abdomen was soft, non- tender, and without masses, organomegaly, or appreciable enlargement of the abdominal aorta.Examination of the extremities revealed easily palpable radial, femoral and pedal pulses. There was no cyanosis, clubbing or edema. - Labs CBC & Chem 7: 03/24/17 06:01 03/24/17 06:01 Labs: Abnormal Lab Results - Last 24 Hours (Table) 03/23/17 03/23/17 03/24/17 Range/Units 16:44 21:40 06:01 WBC 17.0 H (3.8-10.6) k/uL Neutrophils # 12.4 H (1.3-7.7) k/uL Sodium (137-145) mmol/L Chloride (98-107) mmol/L Carbon Dioxide (22-30) mmol/L BUN (7-17) mg/dL POC Glucose (mg/dL) 170 H 211 H (75-99) mg/dL Total Protein (6.3-8.2) g/dL Albumin (3.5-5.0) g/dL 03/24/17 03/24/17 03/24/17 Range/Units 06:01 06:19 11:29 WBC (3.8-10.6) k/uL Neutrophils # (1.3-7.7) k/uL Sodium 132 L (137-145) mmol/L Chloride 95 L (98-107) mmol/L Carbon Dioxide 33 H (22-30) mmol/L BUN 34 H (7-17) mg/dL POC Glucose (mg/dL) 101 H 154 H (75-99) mg/dL Total Protein 5.5 L (6.3-8.2) g/dL Albumin 3.0 L (3.5-5.0) g/dL Assessment and Plan Plan: 1 severe COPD with an FEV1 of 31% of predicted at baseline 2 acute COPD exacerbation, improving. 3 right upper lobe mass measuring 2.5 x 1.6 cm in size, enlarging in size, spiculated, very much suggestive of underlying lung cancer. 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 4 Iatrogenic right-sided pneumothorax post fine-needle aspirate of the right upper lobe. The procedure was done by interventional radiology. Immediately a pigtail catheter was inserted and this was further appreciated by extensive subcutaneous emphysema involving the head face neck and upper chest. The chest x-ray as well inflated and there is no evidence of any residual pneumothorax. There is positive air leak within the chest tube. The chest tube is attached to the wall suction. Subcutaneous incisions were done over the anterior chest to deflate the saphenous emphysema. On 03/21/2017, the patient is much more comfortable compared to yesterday. No worsening in her condition and the extent of subcutaneous emphysema in the face is improving. The amount of air leak from the chest was also improved although that is still some ongoing leak as witnessed. The patient maze hemodynamically stable. The chest x-ray from today shows adequate expansion of the right lung and there is no evidence of any pneumothorax. No other active issues for now and the patient will be kept in the intensive care unit for further monitoring. On 03/22/2017, the patient is stable. Air leak from the chest tube is improved. Subcutaneous emphysema is gradually improving. No significant shortness of breath. She is on a 30 g of prednisone as part of a burst taper. She is using incentive spirometer. No significant respiratory distress. CT surgery is on the case. On 03/23/2017, patient remains stable, chest tube is off suction and on waterseal at present. Subcutaneous emphysema is improving. Continues to have a lot of pain on palpation of the chest wall. Remains on bronchodilators, and she is not in respiratory distress at present. I ordered a follow-up chest x-ray a few hours after chest tube was placed on waterseal. And that is pending at this point. 5 chronic smoker 6 abnormal weight loss 7 aneurysm of the thoracic aorta both ascending and descending 8 hypertension 9 hyperlipidemia 10 scoliosis of the lumbar spine 11 degenerative lumbar disc disease 12. Pharyngeal thrush, currently on oral Diflucan 13 chronic pain Recommendation: Continue present supportive care measures, discussed the condition with the daughter again, and I explained to her that in the future she will follow-up with Dr. June until she establishes with another vaccines solutions specialist from another group. 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 Time with Patient: Less than 30
[2017-03-24 16:56] LABS: Glucose,Whole Blood 254 mg/dL (75-99)
[2017-03-24] MEDS: NICOTINE 14MG/24HR PATCH TRANSDERM SCH (18:03)
[2017-03-24 21:12] LABS: Glucose,Whole Blood 189 mg/dL (75-99)
--- NOTE | 2017-03-24 21:30 | P.CONS ---
History of Present Illness - Reason for Consult Consult date: 03/24/17 RUL squamous cell cancer - History of Present Illness Ms Mason is a pleasant WF, with multiple medical problems including advanced COPD. She was admitted on 03/16/17 with worseing SOB, over 1-2 days. She was admitted with COPD exacerbation. CT chest on 03/11/17 had shown a nodule , 2.5 x 1.4 cm in the RUL. This was noted to have enlarged from prior CT in ( done to evaluate thoracic AA) where it had not been reported. She had a CT guided needle biopsy. but then developed a pneumothorax, with severe SQ emphysema. She had a chest tube placed, with gradual improvement. The biopsy came back positive for squamous cell lung cancer. Consult was therefore placed for further management. She denied any prior h/o malignancy. She is a long-term smoker, and was smoking till admission. Review of Systems Constitutional: Reports weakness, Reports weight loss Eyes: denies blurred vision, denies pain Ears: deny: decreased hearing, ear discharge, earache, tinnitus Ears, nose, mouth and throat: Denies headache, Denies sore throat Cardiovascular: Reports shortness of breath Respiratory: Reports as per HPI, Reports cough with sputum, Reports dyspnea Gastrointestinal: Denies abdominal pain, Denies diarrhea, Denies nausea, Denies vomiting Genitourinary: Denies dysuria, Denies hematuria Menstruation: Reports postmenopausal Musculoskeletal: Reports low back pain Integumentary: Reports as per HPI (SQ emphysema rt side), Denies pruritus, Denies rash Neurological: Reports weakness Psychiatric: Denies anxiety, Denies depression Endocrine: Reports fatigue, Reports weight change Hematologic/Lymphatic: Reports as per HPI Past Medical History Past Medical History: Atrial Fibrillation, COPD, Osteoarthritis (OA) Additional Past Medical History / Comment(s): Advanced COPD, right upper lobe mass measuring 2.5 x 1.6 cm in size, degenerative lumbar disc disease, scoliosis of the lumbar spine, history of TIA, aneurysm of the thoracic aorta, hypertension, hyperlipidemia, chronic pain, rheumatoid arthritis, smoker, cachexia with ongoing weight loss, atrial fibrillation postcardiac ablation History of Any Multi-Drug Resistant Organisms: None Reported Past Surgical History: Orthopedic Surgery Additional Past Surgical History / Comment(s): cardiac ablation, previous cervical spine fusion and hernia repair Past Psychological History: No Psychological Hx Reported Smoking Status: Current every day smoker Medications and Allergies Home Medications Medication Instructions Recorded Confirmed Type Albuterol Nebulized [Ventolin 2.5 mg INHALATION RT-Q4H PRN 03/16/17 03/16/17 History Nebulized] Albuterol Sulfate [Proair Hfa] 2 puff INHALATION RT-Q4H PRN 03/16/17 03/16/17 History Atorvastatin Calcium [Lipitor] 40 mg PO HS 03/16/17 03/16/17 History Fluticasone Propionate [Flovent 2 puff INHALATION RT-BID 03/16/17 03/16/17 History Hfa 220MCG] Metoprolol Succinate (ER) [Toprol 25 mg PO DAILY 03/16/17 03/16/17 History Xl] diphenhydrAMINE HCL [Benadryl] 50 mg PO TID 03/16/17 03/16/17 History oxyCODONE HCL 7.5 mg PO BID 03/16/17 03/16/17 History oxyCODONE HCL [OxyCONTIN] 30 mg PO BID 03/16/17 03/16/17 History Allergies Allergy/AdvReac Type Severity Reaction Status Date / Time ciprofloxacin [From Cipro] Allergy Unknown Verified 03/16/17 12:55 Penicillins Allergy Unknown Verified 03/16/17 12:50 STEROIDS Allergy Unknown Uncoded 03/16/17 12:55 Physical Exam Vitals: Vital Signs Temp Pulse Pulse Resp BP BP Pulse Ox 03/24/17 19:51 100 03/24/17 19:43 112 H 03/24/17 16:00 98.6 F 88 20 116/72 95 03/24/17 15:58 70 20 03/24/17 12:00 98.5 F 70 20 112/68 96 03/24/17 11:53 96 03/24/17 11:37 94 03/24/17 08:28 20 03/24/17 08:22 96 03/24/17 08:11 95 03/24/17 01:00 77 11 L 110/68 93 L 03/24/17 00:00 97.6 F 75 19 97/58 96 03/23/17 23:00 91 32 H 134/64 95 03/23/17 22:34 91 29 H 126/74 96 03/23/17 22:00 94 25 H 126/74 97 Intake and Output 03/24/17 03/24/17 03/24/17 06:59 14:59 22:59 Intake Total 0 720 640 Output Total 0 0 450 Balance 0 720 190 Intake: Oral 0 720 640 Output: Chest Tube Drainage 0 0 0 Right 0 0 0 Urine 0 450 Other: Voiding Method Bedpan Bedpan Bedpan # Voids 1 Weight 45 kg 45 kg Patient Weight 03/25/17 06:59 Weight 45 kg - Constitutional General appearance: no acute distress - EENT Eyes: EOMI, PERRLA ENT: hearing grossly normal, normal oropharynx - Neck Neck: no lymphadenopathy Thyroid: bilateral: normal size - Respiratory Respiratory: right: diminished - Cardiovascular Rhythm: regular Heart sounds: normal: S1, S2 - Gastrointestinal General gastrointestinal: normal bowel sounds, soft - Integumentary SQ emphysema rt chest/abdominal wall, RUE rt neck and face - Neurologic Neurologic: CNII-XII intact - Musculoskeletal Musculoskeletal: generalized weakness, strength equal bilaterally - Psychiatric Psychiatric: A&O x's 3, appropriate affect Results CBC & Chem 7: 03/24/17 06:01 03/24/17 06:01 Labs: Abnormal Lab Results - Last 24 Hours (Table) 03/23/17 03/24/17 03/24/17 Range/Units 21:40 06:01 06:01 WBC 17.0 H (3.8-10.6) k/uL Neutrophils # 12.4 H (1.3-7.7) k/uL Sodium 132 L (137-145) mmol/L Chloride 95 L (98-107) mmol/L Carbon Dioxide 33 H (22-30) mmol/L BUN 34 H (7-17) mg/dL POC Glucose (mg/dL) 211 H (75-99) mg/dL Total Protein 5.5 L (6.3-8.2) g/dL Albumin 3.0 L (3.5-5.0) g/dL 03/24/17 03/24/17 03/24/17 Range/Units 06:19 11:29 16:44 WBC (3.8-10.6) k/uL Neutrophils # (1.3-7.7) k/uL Sodium (137-145) mmol/L Chloride (98-107) mmol/L Carbon Dioxide (22-30) mmol/L BUN (7-17) mg/dL POC Glucose (mg/dL) 101 H 154 H 254 H (75-99) mg/dL Total Protein (6.3-8.2) g/dL Albumin (3.5-5.0) g/dL Chest x-ray: report reviewed (Multiple CXRs showing gradual improvement in SQ emphysema) CT scan - chest: report reviewed (from 01/09 and 03/11/17) Assessment and Plan (1) Squamous cell carcinoma of right lung Narrative/Plan: The pt's is beong seen for biopsy proven squamous cell angelica cancer. The path, CT and implications were reviewed in detail with the pt and family. So far there appears to be no evidence of adenopathy or metastatic disease. I will order a CT brain. If negative, she will be scheduled for a PET as an outpt. If found to have lung limited disease, she is unlikely to be a surgical candidate, given her poor lung function and other medical issues. In that case, she would be a candidate for definitive radiation. Case d/w Rad Onc. They will f/u after the PET. In case of lmited disease, she may be a candidate for SRS. Status: Acute (2) Pneumothorax after biopsy Narrative/Plan: The pt also developed SQ emphysema. She is improving with CT placement. Defer to CTS for further management Status: Acute
[2017-03-24] MEDS: ATORVASTATIN 40 MG TAB PO SCH (21:44)
[2017-03-25] MEDS: ALPRAZolam 0.25 MG TAB PO PRN (00:55)
[2017-03-25] MEDS: HYDROmorphone 1 MG/ML 1 ML SYRINGE IVP PRN ×7 (00:55→19:32)
[2017-03-25 06:22] LABS: Glucose,Whole Blood 142 mg/dL (75-99)
[2017-03-25] MEDS: INSULIN LISPRO (humaLOG) 300 UNIT/3 ML VIAL SQ SCH ×4 (06:30→23:52)
--- NOTE | 2017-03-25 08:05 | XR ---
EXAMINATION TYPE: XR chest 2V DATE OF EXAM: 03/25/2017 7:15 AM COMPARISON: March 24, 2017 HISTORY: Shortness of breath TECHNIQUE: Frontal and lateral views of the chest are obtained. FINDINGS: Again noted is extensive subcutaneous emphysema throughout the chest and neck. This limits evaluation for right-sided pneumothorax however small apical component is felt to be present. Scattered senescent parenchymal changes noted. Hyperinflation compatible with COPD. Masslike density within the periphery of the right midlung zone. Heart size is stable. Mediastinal structures are stable and grossly unremarkable. No evidence for hilar prominence. Degenerative changes dorsal spine. IMPRESSION: 1. Suspect small right-sided pneumothorax. 2. Extensive subcutaneous emphysema.
[2017-03-25] MEDS: HEPARIN SODIUM,PORCINE 5,000 UNIT/ML 1 ML VIAL SQ SCH ×2 (08:52→22:18)
[2017-03-25] MEDS: FLUCONAZOLE 100 MG TAB PO SCH (08:53)
[2017-03-25] MEDS: FAMOTIDINE 20 MG TAB PO SCH (08:53)
[2017-03-25] MEDS: diphenhydrAMINE 50 MG CAP PO SCH ×3 (08:53→22:22)
[2017-03-25] MEDS: predniSONE 10 MG TAB PO SCH (08:53)
[2017-03-25] MEDS: METOPROLOL SUCCINATE (ER) 25 MG TAB.ER.24H PO SCH (08:53)
[2017-03-25] MEDS: oxyCODONE ER 15 MG TAB.ER.12H PO SCH ×2 (09:02→22:19)
[2017-03-25] MEDS: IPRATROPIUM-ALBUTEROL 3 ML NEB INHALATION SCH ×4 (09:38→19:55)
[2017-03-25 11:47] LABS: Glucose,Whole Blood 136 mg/dL (75-99)
[2017-03-25] MEDS: AZITHROMYCIN 500 MG TAB PO SCH (12:26)
[2017-03-25] MEDS ORDERED: predniSONE 20 MG TAB PO SCH (12:59)
--- NOTE | 2017-03-25 13:05 | P.PN ---
Subjective Principal diagnosis: Iatrogenic right-sided pneumothorax following fine-needle aspiration of right upper lobe nodule. Severe COPD FEV1 of 31%. 77-year-old female patient, known to me due to her advanced COPD, tobacco smoking and increase in the right upper lobe speculated mass that was identified on the CAT scan of the chest. The patient came in to the hospital yesterday because of increased shortness of breath. She is a chronic cigarette smoker in she continues to smoke cigarettes on a daily basis. She became progressively shortness of breath and she was having congested cough chest tightness and wheezing. No fever or chills. No chest pain. No nausea. No vomiting. She was briefly placed on a BiPAP at a pressure of 10 over 5 cm of water and currently she is off the BiPAP and utilizing a simple face mask with 40% FiO2. She is not wearing her mask all the time her pulse ox is above 88%. Note that the patient has very poor lung capacity and based on the most recent measurement of her lung function, the patient had demonstrated significant drop in her lung function over the past 5 years with her FEV1 has dropped from 64% down to 31% and this is consistent with severe obstructive airway disease. I counseled this patient for smoking cessation. I offered her nicotine patches. She was restarted on Spiriva 1 inhalation a day. She was also asked to stay on a maintenance of Symbicort 160/4.52 puffs twice a day. As for the CAT scan of the chest, I saw an abnormality in the patient's chest x-ray and I ordered a computed tomography scan of the chest that showed moderate to severe emphysematous change bilaterally and there was a 2.5 x 1.6 cm right upper lobe nodule enlarging from previous evaluations and back in December 2016 this was measuring around 1.4 x 1.0 cm in size. As such there is a high suspicion that this may be cancerous. The patient also has an ascending aorta measuring 4.4 cm transversely and aorta just above the diaphragm measuring 5.4 x 5.1 cm in size. The patient has also markedly spurting and this narrowing with sclerosis of the level of T11 and T12. On 03/18/2017 I'm seeing this patient in follow-up. The patient is less short of breath compared to yesterday. No chest pain. Less bronchospastic and wheezy compared to yesterday. She is still on a combination of bronchodilators and systemic steroids. I discussed the case with interventional radiology and the patient should be able to have her lung mass needled under CAT scan guidance to establish a tissue diagnosis. On 03/19/2017, the patient underwent fine-needle aspirate of the right upper lobe mass. This was done by interventional radiology. Postop, the patient had developed a right-sided pneumothorax. I was aware of the pneumothorax as I reviewed the chest x-ray that was done immediately following the procedure. I discussed the case with interventional radiology and a pigtail catheter was inserted with successful reexpansion of the right lung. There was however development of a septic and his emphysema on the right. On 03/20/2017, the patient got moved to the intensive care unit in the brush finisher hours. Overnight, at around 2:58 AM, the patient developed some worsening of the saphenous emphysema that extended from her right chest area to involve her upper chest bilaterally, and then neck and face and a saphenous emphysema with extensive to the point where the patient was unable to open her eyes. This started in his emphysema He is also felt in her upper extremity especially on the right. Despite all this, the patient remained hemodynamically stable. There was no signs of any airway compromise. She was saturating around 94-95% on 3 L of oxygen nasal cannula. Hemodynamically she remains stable and there was no hypotension. No chest pain reported. The right -sided pigtail catheter was in place and it was still showing signs of air leak as seen on the Pleur-evac. Based on this extensive hepatitis emphysematous got quite uncomfortable, the patient got transferred to the intensive care unit. I attended on this patient in ICU. I had a very lengthy discussion with the family who are very much worried about his condition and initially there were quite upset not understanding the sequence of events that led her to have the percutaneous emphysema and transferred to the intensive care units. In fact one of the daughters was very aggressive and I had a feeling that she did not want to accept the situation. I myself and the presence of my nurse practitioner, Christiane Dee, spent at least 2 hours with the family and talked to have a single family members including 3 daughters and . I made it clear that this is a anticipated complication of a fine-needle aspirate. I reviewed the series of chest x-rays and the most recent chest x-ray from this morning showed subcutaneous emphysema and despite the severity of the condition the right lung was well expanded and the tube itself was function was leaking care. I discussed this case at length with the cardiothoracic surgeon and I involve Dr. Yong Oviedo and decision making. We both felt that inserting a second chest tube may potentially induce trauma and may not improve her subcutaneous emphysema. As such we decided to keep the original pigtail catheter in place and introduce 2 incisions over the chest subcutaneously to deflate the subcutaneous emphysema. This was done at the bedside by Dr. Yong Oviedo and it resulted to significant improvement over the next few hours. At this point in time the extent of emphysema over the face and the neck is less. Meanwhile, I discussed the case with the pathologist and based on the pulmonary findings from the fine-needle aspirate the patient has abnormal malignant cells which probably is of a squamous cell in nature. I shared this with the daughters. At this point in time, the patient is resting comfortably in the intensive care unit. No signs of any respiratory distress. No wheeze of eczema wheezes of breathing. Hemodynamically stable. Afebrile. Still on bronchodilators. Still on IV Solu Medrol and doses been drop down to 40 g IV every 8 hours. On the patient is being seen in follow-up in the intensive care unit. She is much more comfortable compared to yesterday. The subcutaneous emphysema is improving and the patient's faces much deflated compared to yesterday and she is able to open up her eyes. Her chest x-ray from today shows no evidence of any pneumothorax. The pigtail catheter is still in place and the amount of air leak is improved compared to yesterday. She still on a wall suction. While , no signs of any respiratory distress. The patient is on 3 L of oxygen nasal cannula and his saturations around 94-95%. She is tolerating diet. She is on soft food for now. Hemodynamically stable. No change in mental status. No nausea. No vomiting. No chest pain. No other complaints otherwise. The subcutaneous incisions that were done over the anterior chest tender to touch. On 03/22/2017 the patient is being seen in follow-up. The air leak is improved significantly and the patient is having minimal air leak through the chest tube. Meanwhile the subcutaneous emphysema is essentially stable and if everything is gradually improving. Hemodynamically stable. She developed some oropharyngeal thrush and the patient is currently on oral Diflucan. The patient is on 3-4 L/m nasal cannula and her saturations above 92%. Chest x-ray from today shows no evidence of pneumothorax. The PICC line catheter remains in good location. There is a previous emphysema still present. Hemodynamically she is stable. Mentation is within normal. She is having some pain throughout her body and for that reason I'm going to increase his Dilaudid 1 mg every 3 hours on an as-needed basis. I again had a lengthy discussion with her and her daughter the bedside. On 03/23/2017, patient continues to have significant amount of subcutaneous emphysema, he has hardly any air leak, and the chest tube. Hence the tube was placed on waterseal, and suction was discontinued by surgery on the case. Patient is hemodynamically stable, she has occasional cough and wheezing, her O2 saturation remains in the low 90s on 3-4 L/m nasal cannula. No evidence of pneumothorax noted on the chest x-ray. Mentation seems to be intact. Patient had some pain and she is getting Dilaudid intermittently for chest pain. Today I had discussion with her daughter over the phone, and she has lots of questions as why she is she coughing. She is also asking why she was placed off suction, why is she and more pain today, and so on and so forth, basically I am sensing that the daughter is questioning the care of her mother. I suggested that we can definitely make arrangements for the patient to be transferred, or a could have another hematology specialist take over the case. And solid questions that she has could be addressed with the surgeon. I tried to assure the daughter that the care that her mother is receiving is very appropriate, and would be no different if she was a family member of mine. However she was given the option of choosing to transfer the patient and I would be more than happy to do it, she was also given the option of having another hematology specialist from another group take care of the patient. The daughter stated that she would like more time to think and she will let me know. On 03/24/2017, patient is feeling and doing much better. Chest x-ray showed complete expansion of the right lung, and there is less and less subcutaneous emphysema. Pain seems to be better controlled, and shortness of breath is significantly improved. Today I had a long discussion again with the daughter and explained to her all the clinical issues that I have addressed since I have been taking care of her mother over the last 2 days. Family was even made aware yesterday by Dr. June of all the clinical issues and all their questions were answered to their satisfaction. I explained to the daughter today that we will eventually have the patient followed by radiation oncology and by oncology, however on outpatient basis, patient will be followed by Dr. June until she establishes care with another hematology specialist from another group. Absent were reviewed from today, and they seem to be relatively unremarkable. On 03/25/2017, clinically the patient is doing better, her chest catheter was removed, patient continues to have some subcutaneous emphysema, possibility of a small tiny apical right-sided pneumothorax is not entirely ruled out but felt less likely. patient was already seen by oncology and radiation oncology, and hopefully we can arrange for the patient to be discharged home in the next 24 hours. all her labs were reviewed, electrolytes are normal renal profile is normal CBC showed leukocytosis but improving since admission. I will taper the prednisone down to 20 mg daily, and this could be further tapered down on outpatient basis. I have explained to the patient and her daughter that she could be seen on outpatient bases if necessary until she establishes with another group of pulmonary physicians. patient will be taking care of ,all this time until she reestablishes with somebody else. Objective - Vital Signs Vital signs: Vital Signs Temp 99.1 F 03/25/17 12:00 Pulse 96 03/25/17 12:00 Resp 20 03/25/17 12:00 BP 139/80 03/25/17 12:00 Pulse Ox 93 L 03/25/17 12:00 Intake & Output 03/24/17 03/25/17 03/25/17 18:59 06:59 18:59 Intake Total 1360 180 Output Total 450 Balance 910 180 Weight 45 kg 46.5 kg Intake: Oral 1360 180 Output: Chest Tube Drainage 0 Right 0 Urine 450 Other: Voiding Method Bedpan Bedpan # Voids 1 - Exam On general appearance, the patient has less extensive subcutaneous emphysema over the had face neck upper chest and to lesser extent in the right upper extremity. Noted the upper extremity emphysema has improved. patient is able to open up her eyes and seems much more comfortable compared to last 2 days.. The patient has no goiter or neck masses. Mucous membranes are moist and there is no thrush. No cervical or supraclavicular lymphadenopathy. Lung sounds are diminished bilaterally. Breath sounds are diminished in lung bases especially. This some few scattered expiratory wheeze otherwise breath other are equal and symmetrical. There is subcutaneous emphysema over the anterior chest and the pigtail catheter is in good position the right lower chest area.Cardiac exam revealed the PMI to be normally situated and sized. The rhythm was regular and no extrasystoles were noted during several minutes of auscultation. The first and second heart sounds were normal and physiologic splitting of the second heart sound was noted. There were no murmurs, rubs, clicks, or gallops.Abdominal exam revealed normal bowel sounds. The abdomen was soft, non- tender, and without masses, organomegaly, or appreciable enlargement of the abdominal aorta.Examination of the extremities revealed easily palpable radial, femoral and pedal pulses. There was no cyanosis, clubbing or edema. - Labs CBC & Chem 7: 03/24/17 06:01 03/24/17 06:01 Labs: Abnormal Lab Results - Last 24 Hours (Table) 03/24/17 03/24/17 03/25/17 Range/Units 16:44 21:11 06:19 POC Glucose (mg/dL) 254 H 189 H 142 H (75-99) mg/dL 03/25/17 Range/Units 11:46 POC Glucose (mg/dL) 136 H (75-99) mg/dL Assessment and Plan Plan: 1 severe COPD with an FEV1 of 31% of predicted at baseline 2 acute COPD exacerbation, improving. 3 right upper lobe mass measuring 2.5 x 1.6 cm in size, enlarging in size, spiculated, very much suggestive of underlying lung cancer. 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 4 Iatrogenic right-sided pneumothorax post fine-needle aspirate of the right upper lobe. The procedure was done by interventional radiology. Immediately a pigtail catheter was inserted and this was further appreciated by extensive subcutaneous emphysema involving the head face neck and upper chest. The chest x-ray as well inflated and there is no evidence of any residual pneumothorax. There is positive air leak within the chest tube. The chest tube is attached to the wall suction. Subcutaneous incisions were done over the anterior chest to deflate the saphenous emphysema. On 03/21/2017, the patient is much more comfortable compared to yesterday. No worsening in her condition and the extent of subcutaneous emphysema in the face is improving. The amount of air leak from the chest was also improved although that is still some ongoing leak as witnessed. The patient maze hemodynamically stable. The chest x-ray from today shows adequate expansion of the right lung and there is no evidence of any pneumothorax. No other active issues for now and the patient will be kept in the intensive care unit for further monitoring. On 03/22/2017, the patient is stable. Air leak from the chest tube is improved. Subcutaneous emphysema is gradually improving. No significant shortness of breath. She is on a 30 g of prednisone as part of a burst taper. She is using incentive spirometer. No significant respiratory distress. CT surgery is on the case. On 03/23/2017, patient remains stable, chest tube is off suction and on waterseal at present. Subcutaneous emphysema is improving. Continues to have a lot of pain on palpation of the chest wall. Remains on bronchodilators, and she is not in respiratory distress at present. I ordered a follow-up chest x-ray a few hours after chest tube was placed on waterseal. And that is pending at this point. On 03/25/2017, chest catheter was removed, patient continues to do well, consider discharge planning in the next 24 hours. 5 chronic smoker 6 abnormal weight loss 7 aneurysm of the thoracic aorta both ascending and descending 8 hypertension 9 hyperlipidemia 10 scoliosis of the lumbar spine 11 degenerative lumbar disc disease 12. 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 this is based on the fact that she has severe underlying COPD. Recommendation: consider discharge planning in the next 24 hours assuming the patient will be cleared by different consultants including thoracic surgery. follow-up on outpatient basis. patient will be seen once post discharge by Dr. June if necessary, unless she establishes with another group of pulmonary physicians. this is mostly based on the fact that the daughter seems to have mistrust and less confidence in the quality healthcare of the group of pulmonary physicians who were taking care of the patient on a long period including myself and Dr. June. Time with Patient: Less than 30
--- NOTE | 2017-03-25 15:44 | P.PN ---
<Riky Montez L - Last Filed: 03/25/17 15:33> Progress Note - Text CV Surgery Nursing Principal diagnosis: Exacerbation of COPD. Right upper lobe mass, status post fine-needle aspiration performed by interventional radiology. Post FNA patient developed right-sided pneumothorax. POD #4 placement of right pigtail catheter. Pigtail catheter was discontinued on 03/24/2017. Patient awake and alert, no distress noted, patient's back and chest sensitive to touch states her pain is 5 out of 10. Subcu emphysema appears to be resolving. Vital Signs: Afebrile Vital Signs - 24 hr 03/24/17 03/24/17 03/24/17 15:58 16:00 19:43 Temperature 98.6 F Pulse Rate 112 H Pulse Rate [ 70 88 Pulse Oximetery ] Respiratory 20 20 Rate Blood Pressure [Left Arm] Blood Pressure 116/72 [Right Arm Supine] O2 Sat by Pulse 95 Oximetry 03/24/17 03/24/17 03/25/17 19:51 20:00 00:00 Temperature 97.9 F Pulse Rate 100 Pulse Rate [ 105 H 106 H Pulse Oximetery ] Respiratory 18 20 Rate Blood Pressure [Left Arm] Blood Pressure 152/77 140/75 [Right Arm Supine] O2 Sat by Pulse 93 L 94 L Oximetry 03/25/17 03/25/17 03/25/17 04:00 08:49 09:05 Temperature Pulse Rate Pulse Rate [ 83 98 101 H Pulse Oximetery ] Respiratory 20 20 Rate Blood Pressure 154/91 [Left Arm] Blood Pressure 161/76 [Right Arm Supine] O2 Sat by Pulse 93 L 94 L 85 L Oximetry 03/25/17 03/25/17 03/25/17 09:06 11:08 11:20 Temperature Pulse Rate 84 92 Pulse Rate [ 105 H Pulse Oximetery ] Respiratory Rate Blood Pressure [Left Arm] Blood Pressure [Right Arm Supine] O2 Sat by Pulse 92 L Oximetry 03/25/17 03/25/17 12:00 15:13 Temperature 99.1 F 97.9 F Pulse Rate Pulse Rate [ 96 95 Pulse Oximetery ] Respiratory 20 18 Rate Blood Pressure 139/80 124/87 [Left Arm] Blood Pressure [Right Arm Supine] O2 Sat by Pulse 93 L 93 L Oximetry Labs: No new labs Lungs: Scattered wheezes and rhonchi throughout, diminished bilateral bases. Respirations are symmetrical and unlabored. O2 sat: 92% on 4 L nasal cannula. I/S: 750 mL, reviewed with the patient important of using her incentive spirometry every hour while awake. The patient gave a good return demonstration on her incentive spirometry but states she does not feel it is important to use it at this time. Reinforced the importance of using the incentive spirometry with the patient. Heart: S1S2, regular rhythm and rate, negative for S3, gallop or murmur. Remote telemetry showing sinus tachycardia heart rate 112. Bilateral upper chest chest incisions clean and dry. No drainage noted. Subcutaneous emphysema has improved but remains to her bilateral upper extremities chest abdomen and back. Knee-high BESSY hose and sequential compression devices in place to bilateral lower extremities. Abdomen: Soft, Positive bowel sounds present in all 4 quadrants. CBGs: 136-254 mg/dL in the last 24 hours. U/O: Adequate. 24 hr Total: Intake & Output 03/23/17 03/24/17 03/25/17 03/26/17 06:59 06:59 06:59 06:59 Intake Total 3917 720 4496 380 Output Total 650 0 450 Balance 810 950 910 380 Weight 38.9 kg 45 kg 46.5 kg Active Medications Albuterol/Ipratropium (Duoneb 0.5 Mg-3 Mg/3 Ml Soln) 3 ml INHALATION RT-Q2H PRN PRN Reason: Shortness Of Breath Or Wheezing Last Admin: 03/21/17 23:36 Dose: 3 ml Albuterol/Ipratropium (Duoneb 0.5 Mg-3 Mg/3 Ml Soln) 3 ml INHALATION RT-QID [facility] Last Admin: 03/25/17 11:08 Dose: 3 ml Alprazolam (Xanax) 0.25 mg PO BID PRN PRN Reason: Moderate Anxiety Last Admin: 03/25/17 00:55 Dose: 0.25 mg Atorvastatin Calcium (Lipitor) 40 mg PO HS [facility] Last Admin: 03/24/17 21:44 Dose: 40 mg Azithromycin (Zithromax) 500 mg PO Q24H [facility] Last Admin: 03/25/17 12:26 Dose: 500 mg Diphenhydramine HCl (Benadryl) 50 mg PO TID [facility] Last Admin: 03/25/17 15:16 Dose: 50 mg Famotidine (Pepcid) 20 mg PO DAILY [facility] Last Admin: 03/25/17 08:53 Dose: 20 mg Fluconazole (Diflucan) 100 mg PO DAILY [facility] Last Admin: 03/25/17 08:53 Dose: 100 mg Heparin Sodium (Porcine) (Heparin) 5,000 unit SQ Q12HR [facility] Last Admin: 03/25/17 08:52 Dose: 5,000 unit Hydralazine HCl (Apresoline) 10 mg IVP Q4HR PRN PRN Reason: Blood Pressure - High Last Admin: 03/20/17 22:24 Dose: 10 mg Hydromorphone HCl (Dilaudid) 1 mg IVP Q2HR PRN PRN Reason: Severe Pain Last Admin: 03/25/17 15:16 Dose: 1 mg Insulin Human Lispro (Humalog) 0 unit SQ ACHS [facility] PRN Reason: Protocol Last Admin: 03/25/17 12:26 Dose: 1 unit Metoprolol Succinate (Toprol Xl) 25 mg PO DAILY [facility] Last Admin: 03/25/17 08:53 Dose: 25 mg Miscellaneous Information (Rx Info: Iv Contrast Was Given) 1 each MISCELLANE DAILY PRN PRN Reason: Per Protocol Stop: 03/26/17 09:04 Miscellaneous Information (Rx Info: Iv Contrast Was Given) 1 each MISCELLANE DAILY PRN PRN Reason: Per Protocol Stop: 03/26/17 17:30 Nicotine (Habitrol 14mg/24hr Patch) 1 patch TRANSDERM Q24H [facility] Last Admin: 03/24/17 18:03 Dose: 1 patch Oxycodone HCl (Oxyir) 7.5 mg PO BID [facility] Last Admin: 03/25/17 09:03 Dose: 7.5 mg Oxycodone HCl (Oxycontin 15mg E.R.) 30 mg PO BID [facility] Last Admin: 03/25/17 09:02 Dose: 30 mg Prednisone () 20 mg PO DAILY [facility] Plan: Per Dr. Lopes we will see the patient as an as needed status. <Jacob Lopes - Last Filed: 03/25/17 16:33> Progress Note - Text The patient was seen and examined. I agree with the above assessment and plan. The patient's pigtail catheter was removed yesterday. Her chest x-ray today reveals a possible apical right pneumothorax which is unchanged from yesterday. She still has subcutaneous emphysema. There is no plan for intervention on my part at this time.
[2017-03-25 16:49] LABS: Glucose,Whole Blood 124 mg/dL (75-99)
--- NOTE | 2017-03-25 17:01 | P.PN ---
Subjective Principal diagnosis: Exacerbation of chronic obstructive pulmonary disease Patient is a 67-year-old female was known history of advanced COPD and lung mass will presented to [facility] was worsening shortness of breath admitted to telemetry floor she was started on IV antibiotic IV steroids and inhaled bronchodilators she improved significantly since yesterday. Patient is status post CT-guided fine-needle aspiration of right lung mass. However she did develop a 50% pneumothorax on the right side and chest tube needed to be placed. Chest x-ray from today showing no gross pneumothorax with extensive worsening subcutaneous emphysema over bilateral chest wall. Patient has a subcutaneous emphysema all he up through her neck and into her face. She is unable to open her eyes. There is swelling even in the back arms and abdomen. Patient will be transferred to the ICU. She did require to be placed on 5 L nasal cannula. Pulmonary service has been notified as well as interventional radiology in regards to the air leak. Patient is able to talk. She denies any chest pain. Denies any shortness of breath. Patient was admitted to intensive care unit was stabilized and was transferred back to telemetry floor. Objective - Vital Signs Vital signs: Vital Signs Temp 97.9 F 03/25/17 15:13 Pulse 77 03/25/17 16:19 Resp 18 03/25/17 15:13 BP 124/87 03/25/17 15:13 Pulse Ox 93 L 03/25/17 15:13 Intake & Output 03/24/17 03/25/17 03/25/17 18:59 06:59 18:59 Intake Total 1360 480 Output Total 450 Balance 910 480 Weight 45 kg 46.5 kg Intake: Oral 1360 480 Output: Chest Tube Drainage 0 Right 0 Urine 450 Other: Voiding Method Bedpan Bedpan # Voids 1 - Exam In general patient is alert and oriented 3 in no apparent distress HEENT head normocephalic and atraumatic Neck is supple no JVD no goiter no lymphadenopathy Chest exam reveals a scattered crackles bilaterally no wheezing Cardiac exam reveals regular heart sounds no murmurs Abdomen is soft nontender no organomegaly Extremity exam reveals no edema no cyanosis or clubbing - Labs CBC & Chem 7: 03/24/17 06:01 03/24/17 06:01 Labs: Abnormal Lab Results - Last 24 Hours (Table) 03/24/17 03/25/17 03/25/17 Range/Units 21:11 06:19 11:46 POC Glucose (mg/dL) 189 H 142 H 136 H (75-99) mg/dL 03/25/17 Range/Units 16:45 POC Glucose (mg/dL) 124 H (75-99) mg/dL Assessment and Plan Plan: 1. Acute hypoxic respiratory failure secondary to COPD exacerbation. Patient had significant improvement since yesterday, continue was current management with IV steroids and inhaled bronchodilators 2. Acute COPD exacerbation: Patient placed on nebulizer treatments and IV Solu- Medrol. Pulmonary service consulted 3. Acute tracheobronchitis: No pneumonia noted on chest x-ray. Patient currently on azithromycin. Patient has penicillin and Cipro ALLERGY 4. Right midlung nodule noted on chest x-ray. Suspected neoplasm. Pulmonary service consulted, status post percutaneous needle biopsy with subsequent pneumothorax requiring chest tube placement and air leak causing cutaneous emphysema patient improved. 5. Nicotine dependence: Patient placed on nicotine patch. Discussed smoking cessation for greater than 3 minutes. 6. History of rheumatoid arthritis resume patient's pain medications. 7. History of atrial fibrillation status post cardiac ablation 8. History of TIA 9. Hyperlipidemia continue statin 10. Mild dehydration noted on admission. Patient receiving IV fluids 11. Essential hypertension continue with metoprolol 12. Lower back pain and lump along the right side of her spine. Patient is improving gradually no plan for any further intervention at this time per thoracic surgery will follow closely
[2017-03-25] MEDS: NICOTINE 14MG/24HR PATCH TRANSDERM SCH (17:04)
[2017-03-25 21:30] LABS: Glucose,Whole Blood 119 mg/dL (75-99)
[2017-03-25] MEDS: ATORVASTATIN 40 MG TAB PO SCH (22:23)
[2017-03-26] MEDS: HYDROmorphone 1 MG/ML 1 ML SYRINGE IVP PRN ×5 (00:48→18:20)
[2017-03-26 06:37] LABS: Glucose,Whole Blood 120 mg/dL (75-99)
[2017-03-26 06:51] LABS: Basophils % (A) 0 %; CH 27.8; CHCM 31.3; Eosinophils # (A) 0.3 k/uL (0-0.7); Eosinophils % (A) 2 %; HCT 39.1 % (34.0-46.0); HDW 2.38; HGB 12.3 gm/dL (11.4-16.0); Luc # (Auto) 0.29; Luc % (Auto) 2; Lymphocytes % (A) 19 %; MCH 28.1 pg (25.0-35.0); MCHC 31.5 g/dL (31.0-37.0); MCV 89.1 fL (80.0-100.0); Mean Platelet Volume 6.7; Monocytes # (A) 0.9 k/uL (0-1.0); Monocytes % (A) 6 %; Neutrophils # (A) 11.6 k/uL (1.3-7.7); Neutrophils % (A) 72 %; RBC 4.39 m/uL (3.80-5.40); RDW 13.4 % (11.5-15.5); WBC 16.2 k/uL (3.8-10.6); WBC (Perox) 17.12
[2017-03-26 07:15] LABS: ALT 50 U/L (9-52); AST 42 U/L (14-36); Alkaline Phosphatase 99 U/L (38-126); Anion Gap 6 mmol/L; Blood Urea Nitrogen 36 mg/dL (7-17); Calcium 9.5 mg/dL (8.4-10.2); Carbon Dioxide 33 mmol/L (22-30); Chloride 95 mmol/L (98-107); Glucose 112 mg/dL (74-99); Non-African American GFR(MDRD) >60 (>60 ml/min/1.73 sqM); Potassium 4.4 mmol/L (3.5-5.1); Sodium 134 mmol/L (137-145); Total Bilirubin 0.4 mg/dL (0.2-1.3); Total Protein 6.3 g/dL (6.3-8.2)
[2017-03-26] MEDS: IPRATROPIUM-ALBUTEROL 3 ML NEB INHALATION SCH ×4 (07:40→20:16)
[2017-03-26] MEDS: INSULIN LISPRO (humaLOG) 300 UNIT/3 ML VIAL SQ SCH ×4 (07:42→21:11)
[2017-03-26] MEDS: FAMOTIDINE 20 MG TAB PO SCH (08:29)
[2017-03-26] MEDS: FLUCONAZOLE 100 MG TAB PO SCH (08:29)
[2017-03-26] MEDS: diphenhydrAMINE 50 MG CAP PO SCH ×3 (08:29→21:11)
[2017-03-26] MEDS: METOPROLOL SUCCINATE (ER) 25 MG TAB.ER.24H PO SCH (08:30)
[2017-03-26] MEDS: HEPARIN SODIUM,PORCINE 5,000 UNIT/ML 1 ML VIAL SQ SCH ×2 (08:30→21:11)
[2017-03-26] MEDS: oxyCODONE ER 15 MG TAB.ER.12H PO SCH ×2 (09:07→21:11)
--- NOTE | 2017-03-26 09:50 | XR ---
EXAMINATION TYPE: XR chest 1V portable DATE OF EXAM: 03/26/2017 9:44 AM COMPARISON: Prior chest x-ray 25 Mar 2017 HISTORY: Follow-up pneumothorax TECHNIQUE: Single frontal view of the chest is obtained. FINDINGS: Extensive subcutaneous emphysema is again noted. There are changes of underlying COPD. Rig ht upper lobe lung nodule is present. There is a scoliosis. No sizable pneumothorax is evident. IMPRESSION: Exam may be somewhat limited for evaluation, no sizable pneumothorax is evident. Extensi ve subcutaneous emphysema again seen.
[2017-03-26 11:29] LABS: Glucose,Whole Blood 129 mg/dL (75-99)
[2017-03-26] MEDS: AZITHROMYCIN 500 MG TAB PO SCH (12:09)
[2017-03-26] MEDS ORDERED: predniSONE 10 MG TAB PO SCH (12:09)
--- NOTE | 2017-03-26 12:15 | P.PN ---
Subjective Principal diagnosis: Iatrogenic right-sided pneumothorax following fine-needle aspiration of right upper lobe nodule, positive for squamous cell carcinoma, Severe COPD FEV1 of 31% . 77-year-old female patient, known to me due to her advanced COPD, tobacco smoking and increase in the right upper lobe speculated mass that was identified on the CAT scan of the chest. The patient came in to the hospital yesterday because of increased shortness of breath. She is a chronic cigarette smoker in she continues to smoke cigarettes on a daily basis. She became progressively shortness of breath and she was having congested cough chest tightness and wheezing. No fever or chills. No chest pain. No nausea. No vomiting. She was briefly placed on a BiPAP at a pressure of 10 over 5 cm of water and currently she is off the BiPAP and utilizing a simple face mask with 40% FiO2. She is not wearing her mask all the time her pulse ox is above 88%. Note that the patient has very poor lung capacity and based on the most recent measurement of her lung function, the patient had demonstrated significant drop in her lung function over the past 5 years with her FEV1 has dropped from 64% down to 31% and this is consistent with severe obstructive airway disease. I counseled this patient for smoking cessation. I offered her nicotine patches. She was restarted on Spiriva 1 inhalation a day. She was also asked to stay on a maintenance of Symbicort 160/4.52 puffs twice a day. As for the CAT scan of the chest, I saw an abnormality in the patient's chest x-ray and I ordered a computed tomography scan of the chest that showed moderate to severe emphysematous change bilaterally and there was a 2.5 x 1.6 cm right upper lobe nodule enlarging from previous evaluations and back in December 2016 this was measuring around 1.4 x 1.0 cm in size. As such there is a high suspicion that this may be cancerous. The patient also has an ascending aorta measuring 4.4 cm transversely and aorta just above the diaphragm measuring 5.4 x 5.1 cm in size. The patient has also markedly spurting and this narrowing with sclerosis of the level of T11 and T12. On 03/18/2017 I'm seeing this patient in follow-up. The patient is less short of breath compared to yesterday. No chest pain. Less bronchospastic and wheezy compared to yesterday. She is still on a combination of bronchodilators and systemic steroids. I discussed the case with interventional radiology and the patient should be able to have her lung mass needled under CAT scan guidance to establish a tissue diagnosis. On 03/19/2017, the patient underwent fine-needle aspirate of the right upper lobe mass. This was done by interventional radiology. Postop, the patient had developed a right-sided pneumothorax. I was aware of the pneumothorax as I reviewed the chest x-ray that was done immediately following the procedure. I discussed the case with interventional radiology and a pigtail catheter was inserted with successful reexpansion of the right lung. There was however development of a septic and his emphysema on the right. On 03/20/2017, the patient got moved to the intensive care unit in the hand bender hours. Overnight, at around 2:58 AM, the patient developed some worsening of the saphenous emphysema that extended from her right chest area to involve her upper chest bilaterally, and then neck and face and a saphenous emphysema with extensive to the point where the patient was unable to open her eyes. This started in his emphysema He is also felt in her upper extremity especially on the right. Despite all this, the patient remained hemodynamically stable. There was no signs of any airway compromise. She was saturating around 94-95% on 3 L of oxygen nasal cannula. Hemodynamically she remains stable and there was no hypotension. No chest pain reported. The right -sided pigtail catheter was in place and it was still showing signs of air leak as seen on the Pleur-evac. Based on this extensive hepatitis emphysematous got quite uncomfortable, the patient got transferred to the intensive care unit. I attended on this patient in ICU. I had a very lengthy discussion with the family who are very much worried about his condition and initially there were quite upset not understanding the sequence of events that led her to have the percutaneous emphysema and transferred to the intensive care units. In fact one of the daughters was very aggressive and I had a feeling that she did not want to accept the situation. I myself and the presence of my nurse practitioner, Christiane Dee, spent at least 2 hours with the family and talked to have a single family members including 3 daughters and . I made it clear that this is a anticipated complication of a fine-needle aspirate. I reviewed the series of chest x-rays and the most recent chest x-ray from this morning showed subcutaneous emphysema and despite the severity of the condition the right lung was well expanded and the tube itself was function was leaking care. I discussed this case at length with the cardiothoracic surgeon and I involve Dr. Yong Oviedo and decision making. We both felt that inserting a second chest tube may potentially induce trauma and may not improve her subcutaneous emphysema. As such we decided to keep the original pigtail catheter in place and introduce 2 incisions over the chest subcutaneously to deflate the subcutaneous emphysema. This was done at the bedside by Dr. Yong Oviedo and it resulted to significant improvement over the next few hours. At this point in time the extent of emphysema over the face and the neck is less. Meanwhile, I discussed the case with the pathologist and based on the pulmonary findings from the fine-needle aspirate the patient has abnormal malignant cells which probably is of a squamous cell in nature. I shared this with the daughters. At this point in time, the patient is resting comfortably in the intensive care unit. No signs of any respiratory distress. No wheeze of eczema wheezes of breathing. Hemodynamically stable. Afebrile. Still on bronchodilators. Still on IV Solu Medrol and doses been drop down to 40 g IV every 8 hours. On the patient is being seen in follow-up in the intensive care unit. She is much more comfortable compared to yesterday. The subcutaneous emphysema is improving and the patient's faces much deflated compared to yesterday and she is able to open up her eyes. Her chest x-ray from today shows no evidence of any pneumothorax. The pigtail catheter is still in place and the amount of air leak is improved compared to yesterday. She still on a wall suction. While , no signs of any respiratory distress. The patient is on 3 L of oxygen nasal cannula and his saturations around 94-95%. She is tolerating diet. She is on soft food for now. Hemodynamically stable. No change in mental status. No nausea. No vomiting. No chest pain. No other complaints otherwise. The subcutaneous incisions that were done over the anterior chest tender to touch. On 03/22/2017 the patient is being seen in follow-up. The air leak is improved significantly and the patient is having minimal air leak through the chest tube. Meanwhile the subcutaneous emphysema is essentially stable and if everything is gradually improving. Hemodynamically stable. She developed some oropharyngeal thrush and the patient is currently on oral Diflucan. The patient is on 3-4 L/m nasal cannula and her saturations above 92%. Chest x-ray from today shows no evidence of pneumothorax. The PICC line catheter remains in good location. There is a previous emphysema still present. Hemodynamically she is stable. Mentation is within normal. She is having some pain throughout her body and for that reason I'm going to increase his Dilaudid 1 mg every 3 hours on an as-needed basis. I again had a lengthy discussion with her and her daughter the bedside. On 03/23/2017, patient continues to have significant amount of subcutaneous emphysema, he has hardly any air leak, and the chest tube. Hence the tube was placed on waterseal, and suction was discontinued by surgery on the case. Patient is hemodynamically stable, she has occasional cough and wheezing, her O2 saturation remains in the low 90s on 3-4 L/m nasal cannula. No evidence of pneumothorax noted on the chest x-ray. Mentation seems to be intact. Patient had some pain and she is getting Dilaudid intermittently for chest pain. Today I had discussion with her daughter over the phone, and she has lots of questions as why she is she coughing. She is also asking why she was placed off suction, why is she and more pain today, and so on and so forth, basically I am sensing that the daughter is questioning the care of her mother. I suggested that we can definitely make arrangements for the patient to be transferred, or a could have another marketing proposal specialist take over the case. And solid questions that she has could be addressed with the surgeon. I tried to assure the daughter that the care that her mother is receiving is very appropriate, and would be no different if she was a family member of mine. However she was given the option of choosing to transfer the patient and I would be more than happy to do it, she was also given the option of having another marketing proposal specialist from another group take care of the patient. The daughter stated that she would like more time to think and she will let me know. On 03/24/2017, patient is feeling and doing much better. Chest x-ray showed complete expansion of the right lung, and there is less and less subcutaneous emphysema. Pain seems to be better controlled, and shortness of breath is significantly improved. Today I had a long discussion again with the daughter and explained to her all the clinical issues that I have addressed since I have been taking care of her mother over the last 2 days. Family was even made aware yesterday by Dr. June of all the clinical issues and all their questions were answered to their satisfaction. I explained to the daughter today that we will eventually have the patient followed by radiation oncology and by oncology, however on outpatient basis, patient will be followed by Dr. June until she establishes care with another marketing proposal specialist from another group. Absent were reviewed from today, and they seem to be relatively unremarkable. On 03/25/2017, clinically the patient is doing better, her chest catheter was removed, patient continues to have some subcutaneous emphysema, possibility of a small tiny apical right-sided pneumothorax is not entirely ruled out but felt less likely. patient was already seen by oncology and radiation oncology, and hopefully we can arrange for the patient to be discharged home in the next 24 hours. all her labs were reviewed, electrolytes are normal renal profile is normal CBC showed leukocytosis but improving since admission. I will taper the prednisone down to 20 mg daily, and this could be further tapered down on outpatient basis. I have explained to the patient and her daughter that she could be seen on outpatient bases if necessary until she establishes with another group of pulmonary physicians. patient will be taking care of ,all this time until she reestablishes with somebody else. On 03/26/2017, patient is doing about the same, her main issue seems to be issue related to pain. Chest x-ray is unchanged. Possible tiny apical pneumothorax is present, however not certain. Continues to have subcu emphysema, continues to have generalized pain and tenderness throughout the chest and back. Patient is requiring narcotics for pain control. Her COPD status is relatively stable in spite of its severity. Today I recommended that we cut down the prednisone to 10 mg daily, I will clear the patient for possible discharge if cleared by other physicians on the case including thoracic surgery. Patient is to have follow-up with Dr. June in one week for one follow-up visit until she establishes with another pulmonary physician. Objective - Vital Signs Vital signs: Vital Signs Temp 97.9 F 03/26/17 11:57 Pulse 89 03/26/17 11:57 Resp 18 03/26/17 11:57 BP 141/95 03/26/17 11:57 Pulse Ox 95 03/26/17 11:57 Intake & Output 03/25/17 03/26/17 03/26/17 18:59 06:59 18:59 Intake Total 680 300 Balance 680 300 Weight 46 kg Intake: Oral 680 300 Other: Voiding Method Bedpan Toilet Toilet Bedpan # Voids 1 - Exam Physical Exam: Revealed a 67-year-old, thin and frail, in no form of respiratory distress. On nasal cannula. HEENT:[Neck is supple.] [No neck masses.] [No thyromegaly.] [No JVD.] Chest: [Diminished breath sounds at the bases no crackles or rhonchi or wheezes continues to have significant tenderness over the anterior chest wall and back.] Cardiac Exam: [Normal S1 and S2, no S3 gallop, no murmur.] Abdomen: [Soft, nontender, no megaly, no rebound, no guarding, normal bowel sounds.] Extremities: [No clubbing, no edema, no cyanosis.] Positive tenderness in the lumbosacral spine also noted. Neurological Exam: [No focal neurologic deficit.] - Labs CBC & Chem 7: 03/26/17 06:12 03/26/17 06:12 Labs: Abnormal Lab Results - Last 24 Hours (Table) 03/25/17 03/25/17 03/26/17 Range/Units 16:45 21:28 06:12 WBC 16.2 H (3.8-10.6) k/uL Neutrophils # 11.6 H (1.3-7.7) k/uL Sodium (137-145) mmol/L Chloride (98-107) mmol/L Carbon Dioxide (22-30) mmol/L BUN (7-17) mg/dL Glucose (74-99) mg/dL POC Glucose (mg/dL) 124 H 119 H (75-99) mg/dL AST (14-36) U/L 03/26/17 03/26/17 03/26/17 Range/Units 06:12 06:35 11:28 WBC (3.8-10.6) k/uL Neutrophils # (1.3-7.7) k/uL Sodium 134 L (137-145) mmol/L Chloride 95 L (98-107) mmol/L Carbon Dioxide 33 H (22-30) mmol/L BUN 36 H (7-17) mg/dL Glucose 112 H (74-99) mg/dL POC Glucose (mg/dL) 120 H 129 H (75-99) mg/dL AST 42 H (14-36) U/L Assessment and Plan Plan: 1 severe COPD with an FEV1 of 31% of predicted at baseline 2 acute COPD exacerbation, improving. 3 right upper lobe mass measuring 2.5 x 1.6 cm in size, enlarging in size, spiculated, very much suggestive of underlying lung cancer. 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 4 Iatrogenic right-sided pneumothorax post fine-needle aspirate of the right upper lobe. The procedure was done by interventional radiology. Immediately a pigtail catheter was inserted and this was further appreciated by extensive subcutaneous emphysema involving the head face neck and upper chest. The chest x-ray as well inflated and there is no evidence of any residual pneumothorax. There is positive air leak within the chest tube. The chest tube is attached to the wall suction. Subcutaneous incisions were done over the anterior chest to deflate the saphenous emphysema. On 03/21/2017, the patient is much more comfortable compared to yesterday. No worsening in her condition and the extent of subcutaneous emphysema in the face is improving. The amount of air leak from the chest was also improved although that is still some ongoing leak as witnessed. The patient maze hemodynamically stable. The chest x-ray from today shows adequate expansion of the right lung and there is no evidence of any pneumothorax. No other active issues for now and the patient will be kept in the intensive care unit for further monitoring. On 03/22/2017, the patient is stable. Air leak from the chest tube is improved. Subcutaneous emphysema is gradually improving. No significant shortness of breath. She is on a 30 g of prednisone as part of a burst taper. She is using incentive spirometer. No significant respiratory distress. CT surgery is on the case. On 03/23/2017, patient remains stable, chest tube is off suction and on waterseal at present. Subcutaneous emphysema is improving. Continues to have a lot of pain on palpation of the chest wall. Remains on bronchodilators, and she is not in respiratory distress at present. I ordered a follow-up chest x-ray a few hours after chest tube was placed on waterseal. And that is pending at this point. On 03/25/2017, chest catheter was removed, patient continues to do well, consider discharge planning in the next 24 hours. On 03/26/2017 reviewed the patient's chest x-ray, discussed her condition with her daughter, I will clear her for discharge today or tomorrow, however her main issues seem to be pain control at present. She is on Dilaudid every 2 hours for pain control. I cut down her prednisone to 10 mg daily and I will clear her for discharge planning. 5 chronic smoker 6 abnormal weight loss 7 aneurysm of the thoracic aorta both ascending and descending 8 hypertension 9 hyperlipidemia 10 scoliosis of the lumbar spine 11 degenerative lumbar disc disease 12. 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 this is based on the fact that she has severe underlying COPD. Recommendation: consider discharge planning , patient will definitely need to be on pain control medications/narcotics, she will be switched to prednisone 10 mg daily maintenance until she follows up on outpatient basis, she will remain on the same bronchodilators, and she should have follow-up with oncology and radiation oncology as advised by them in the next couple of weeks. Patient will have a follow-up appointment with Dr. June early next week for one follow-up visit only or until she establishes with another pulmonary physician. Time with Patient: Less than 30
--- NOTE | 2017-03-26 12:25 | P.PN ---
Subjective Exacerbation of chronic obstructive pulmonary disease Patient is a 67-year-old female was known history of advanced COPD and lung mass will presented to [facility] was worsening shortness of breath admitted to telemetry floor she was started on IV antibiotic IV steroids and inhaled bronchodilators she improved significantly since yesterday. Patient is status post CT-guided fine-needle aspiration of right lung mass. However she did develop a 50% pneumothorax on the right side and chest tube needed to be placed. Chest x-ray from today showing no gross pneumothorax with extensive worsening subcutaneous emphysema over bilateral chest wall. Patient has a subcutaneous emphysema all he up through her neck and into her face. She is unable to open her eyes. There is swelling even in the back arms and abdomen. Patient will be transferred to the ICU. She did require to be placed on 5 L nasal cannula. Pulmonary service has been notified as well as interventional radiology in regards to the air leak. Patient is able to talk. She denies any chest pain. Denies any shortness of breath. 03/23/2017 patient showing improvement in the subcutaneous emphysema. She denies any chest pain or shortness breath. Denies any nausea or vomiting. Denies any bowel movement changes or urinary symptoms. 03/26/2017 chest tube remains out. Chest x-ray shows no pneumothorax still showing evidence of subcutaneous emphysema. Patient reports improvement in her breathing. Objective - Vital Signs Vital signs: Vital Signs Temp 97.9 F 03/26/17 11:57 Pulse 89 03/26/17 11:57 Resp 18 03/26/17 11:57 BP 141/95 03/26/17 11:57 Pulse Ox 95 03/26/17 11:57 Intake & Output 03/25/17 03/26/17 03/26/17 18:59 06:59 18:59 Intake Total 680 300 Balance 680 300 Weight 46 kg Intake: Oral 680 300 Other: Voiding Method Bedpan Toilet Toilet Bedpan # Voids 1 - Exam Head decrease in facial swelling. Patient is able to open her eyes. Neck supple Lungs diminished bilaterally. Crepitus palpable along the chest and back Heart regular rate and rhythm S1-S2, no rub or gallop Abdomen is soft nontender nondistended positive bowel sounds no hepatosplenomegaly Extremities no edema Neuro alert and orientated to 3 - Labs CBC & Chem 7: 03/26/17 06:12 03/26/17 06:12 Labs: Abnormal Lab Results - Last 24 Hours (Table) 03/25/17 03/25/17 03/26/17 Range/Units 16:45 21:28 06:12 WBC 16.2 H (3.8-10.6) k/uL Neutrophils # 11.6 H (1.3-7.7) k/uL Sodium (137-145) mmol/L Chloride (98-107) mmol/L Carbon Dioxide (22-30) mmol/L BUN (7-17) mg/dL Glucose (74-99) mg/dL POC Glucose (mg/dL) 124 H 119 H (75-99) mg/dL AST (14-36) U/L 03/26/17 03/26/17 03/26/17 Range/Units 06:12 06:35 11:28 WBC (3.8-10.6) k/uL Neutrophils # (1.3-7.7) k/uL Sodium 134 L (137-145) mmol/L Chloride 95 L (98-107) mmol/L Carbon Dioxide 33 H (22-30) mmol/L BUN 36 H (7-17) mg/dL Glucose 112 H (74-99) mg/dL POC Glucose (mg/dL) 120 H 129 H (75-99) mg/dL AST 42 H (14-36) U/L Assessment and Plan Plan: 1. Acute hypoxic respiratory failure secondary to COPD exacerbation. 2. Acute COPD exacerbation: Patient placed on nebulizer treatments and prednisone. Pulmonary following 3. Acute tracheobronchitis: No pneumonia noted on chest x-ray. Patient currently on azithromycin. Patient has penicillin and Cipro ALLERGY 4. 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 Evaluated by oncology. Patient not a surgical candidate. Due to her underlying COPD. We'll await further oncology recommendations. 5. Nicotine dependence: Patient placed on nicotine patch. Discussed smoking cessation for greater than 3 minutes. 6. History of rheumatoid arthritis resume patient's pain medications. 7. History of atrial fibrillation status post cardiac ablation 8. History of TIA 9. Hyperlipidemia continue statin 10. Mild dehydration noted on admission. Patient receiving IV fluids 11. Essential hypertension continue with metoprolol 12. Scoliosis of the lumbar spine and degenerative lumbar disc disease 13. 2 aneurysms of the thoracic aorta: Vascular surgery evaluated. No need for surgical intervention at this time 14. Mild protein calorie malnutrition continue protein supplement 15. Right-sided pneumothorax after biopsy of lung mass. Chest tube inserted. Patient has subcutaneous emphysema that involves her face neck chest back arms and abdomen. Patient required transfer to the ICU. She is showing improvement. Pulmonary and vascular are following. Chest tube was removed a couple days ago. Chest x-ray showing no pneumothorax. 16. Medical debility: Physical therapy has been consulted. Encouraged patient to increase activity We'll work on pain management. Possible discharge within the next 1-2 days. GI prophylaxis Pepcid and DVT prophylaxis subcu heparin I performed an examination of the patient and discussed their management with the physician Disability Hearing Officer. I have reviewed the Physician Disability Hearing Officer's notes and agree with the documented findings and plan of care
[2017-03-26] MEDS: ALPRAZolam 0.25 MG TAB PO PRN (13:25)
[2017-03-26] MEDS: NICOTINE 14MG/24HR PATCH TRANSDERM SCH (16:06)
[2017-03-26 16:46] LABS: Glucose,Whole Blood 121 mg/dL (75-99)
[2017-03-26 20:56] LABS: Glucose,Whole Blood 153 mg/dL (75-99)
[2017-03-26] MEDS: ATORVASTATIN 40 MG TAB PO SCH (21:11)
[2017-03-27] MEDS: HYDROmorphone 1 MG/ML 1 ML SYRINGE IVP PRN ×4 (00:08→17:43)
[2017-03-27 06:19] LABS: Glucose,Whole Blood 88 mg/dL (75-99)
[2017-03-27] MEDS: INSULIN LISPRO (humaLOG) 300 UNIT/3 ML VIAL SQ SCH ×3 (07:00→17:32)
[2017-03-27 07:41] LABS: Basophils # (A) 0.1 k/uL (0-0.2); Basophils % (A) 0 %; CH 27.8; CHCM 30.9; Eosinophils # (A) 0.2 k/uL (0-0.7); Eosinophils % (A) 1 %; HDW 2.29; HGB 11.7 gm/dL (11.4-16.0); Hypochromasia Slight; Luc # (Auto) 0.31; Luc % (Auto) 2; Lymphocytes # (A) 3.7 k/uL (1.0-4.8); Lymphocytes % (A) 26 %; MCH 27.7 pg (25.0-35.0); MCHC 30.7 g/dL (31.0-37.0); MCV 90.3 fL (80.0-100.0); Mean Platelet Volume 6.7; Monocytes # (A) 0.7 k/uL (0-1.0); Monocytes % (A) 5 %; Neutrophils # (A) 9.6 k/uL (1.3-7.7); Neutrophils % (A) 66 %; RBC 4.21 m/uL (3.80-5.40); RDW 13.6 % (11.5-15.5); WBC 14.6 k/uL (3.8-10.6); WBC (Perox) 14.95
[2017-03-27] MEDS: IPRATROPIUM-ALBUTEROL 3 ML NEB INHALATION SCH ×4 (07:59→16:24)
[2017-03-27] MEDS: diphenhydrAMINE 50 MG CAP PO SCH ×2 (08:07→17:39)
[2017-03-27] MEDS: FLUCONAZOLE 100 MG TAB PO SCH (08:07)
[2017-03-27] MEDS: METOPROLOL SUCCINATE (ER) 25 MG TAB.ER.24H PO SCH (08:07)
[2017-03-27] MEDS: HEPARIN SODIUM,PORCINE 5,000 UNIT/ML 1 ML VIAL SQ SCH (08:07)
[2017-03-27] MEDS: FAMOTIDINE 20 MG TAB PO SCH (08:08)
[2017-03-27] MEDS: oxyCODONE ER 15 MG TAB.ER.12H PO SCH (08:13)
[2017-03-27 08:14] LABS: ALT 50 U/L (9-52); AST 33 U/L (14-36); Alkaline Phosphatase 82 U/L (38-126); Anion Gap 5 mmol/L; Blood Urea Nitrogen 33 mg/dL (7-17); Calcium 9.1 mg/dL (8.4-10.2); Carbon Dioxide 36 mmol/L (22-30); Chloride 94 mmol/L (98-107); Glucose 90 mg/dL (74-99); Non-African American GFR(MDRD) >60 (>60 ml/min/1.73 sqM); Potassium 4.6 mmol/L (3.5-5.1); Sodium 135 mmol/L (137-145); Total Bilirubin 0.4 mg/dL (0.2-1.3)
[2017-03-27 11:17] VITALS: RESP 16
[2017-03-27] MEDS: AZITHROMYCIN 500 MG TAB PO SCH (11:57)
[2017-03-27 12:12] LABS: Glucose,Whole Blood 177 mg/dL (75-99)
--- NOTE | 2017-03-27 15:00 | P.DS ---
Providers Date of admission: 03/18/17 08:33 Expected date of discharge: 03/27/17 Attending physician: Mariela Delgadillo Consults: 03/18/17 15:41 Consult Physician Routine Consulting Provider: Jeff Cortez Consult Reason/Comments: lung mass, FNA Do you want consulting provider notified?: Yes 03/19/17 17:48 Consult Physician Routine Consulting Provider: Jacob Lopes Consult Reason/Comments: THORACIC ANEURYSM X2 Do you want consulting provider notified?: Yes, Notify in am 03/23/17 15:45 Consult Physician Routine Consulting Provider: Wiley Dee Consult Reason/Comments: cancer Do you want consulting provider notified?: Yes 03/23/17 15:54 Consult Physician Routine Consulting Provider: Bernardo Hernandez Consult Reason/Comments: cancer Do you want consulting provider notified?: Already Contacted Primary care physician: Yahaira Kessler Hospital Course: Discharge diagnosis 1. Acute hypoxic respiratory failure secondary to COPD exacerbation. 2. Acute COPD exacerbation: Patient placed on nebulizer treatments and prednisone. Pulmonary following. Finish 4 more days of prednisone 3. Acute tracheobronchitis: No pneumonia noted on chest x-ray. Completed treatment in hospital 4. 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 Evaluated by oncology. Patient not a surgical candidate. Due to her underlying COPD. We'll await further oncology recommendations. 5. Nicotine dependence: Patient placed on nicotine patch. Discussed smoking cessation for greater than 3 minutes. 6. History of rheumatoid arthritis resume patient's pain medications. 7. History of atrial fibrillation status post cardiac ablation 8. History of TIA 9. Hyperlipidemia continue statin 10. Mild dehydration noted on admission. Patient receiving IV fluids 11. Essential hypertension continue with metoprolol 12. Scoliosis of the lumbar spine and degenerative lumbar disc disease 13. 2 aneurysms of the thoracic aorta: Vascular surgery evaluated. No need for surgical intervention at this time 14. Mild protein calorie malnutrition continue protein supplement 15. Right-sided pneumothorax after biopsy of lung mass. Chest tube inserted. Patient has subcutaneous emphysema that involves her face neck chest back arms and abdomen. Patient required transfer to the ICU. She is showing improvement. Pulmonary and vascular are following. Chest tube was removed a couple days ago. Chest x-ray showing no pneumothorax. 16. Medical debility: Physical therapy has been consulted. Encouraged patient to increase activity Hospital course Patient is a 67-year-old female was known history of advanced COPD and lung mass will presented to [facility] was worsening shortness of breath admitted to telemetry floor she was started on IV antibiotic IV steroids and inhaled bronchodilators. Pulmonary service was consulted. Patient's symptoms did show improvement. Chest x-ray had shown a right midlung nodule suspected neoplasm. Patient under went a CT guided biopsy of that nodule. Pathology is positive for squamous cell carcinoma. She was seen by oncology and radiation oncologist. And she will be following up with them in outpatient setting for possible further radiation treatment. However she had a comp location after the biopsy resulting in a 50% pneumothorax. Chest tube was inserted. And she then developed severe subcutaneous emphysema that had involved chest back arms abdomen and her face. She did require transfer to the ICU. Vascular surgery was consulted and incisions were placed bilaterally on the clavicular area. The subcu cancer emphysema has shown improvement. She was able to be transferred out of the ICU a few days ago. She's been cleared by consulting physicians for discharge. Chest x-rays after chest tube removed have shown no pneumothorax. Patient's symptoms have improved she's stable for discharge she'll require home oxygen. She'll follow-up with consulting physicians in regards to further care and the new diagnosis of the lung cancer. Please refer to chart for any further details. Patient Condition at Discharge: Stable Plan - Discharge Summary New Discharge Prescriptions: Fluconazole [Diflucan] 100 mg PO DAILY #3 tab Nicotine 14Mg/24Hr Patch [Habitrol] 1 patch TRANSDERM Q24H #30 patch predniSONE 10 mg PO DAILY #4 tab Discharge Medication List Albuterol Nebulized [Ventolin Nebulized] 2.5 mg INHALATION RT-Q4H PRN 03/16/17 [ History] Albuterol Sulfate [Proair Hfa] 2 puff INHALATION RT-Q4H PRN 03/16/17 [History] Atorvastatin Calcium [Lipitor] 40 mg PO HS 03/16/17 [History] Fluticasone Propionate [Flovent Hfa 220MCG] 2 puff INHALATION RT-BID 03/16/17 [ History] Metoprolol Succinate (ER) [Toprol XL] 25 mg PO DAILY 03/16/17 [History] diphenhydrAMINE HCL [Benadryl] 50 mg PO TID 03/16/17 [History] oxyCODONE HCL 7.5 mg PO BID 03/16/17 [History] oxyCODONE HCL [OxyCONTIN] 30 mg PO BID 03/16/17 [History] Fluconazole [Diflucan] 100 mg PO DAILY #3 tab 03/27/17 [Rx] Nicotine 14Mg/24Hr Patch [Habitrol] 1 patch TRANSDERM Q24H #30 patch 03/27/17 [ Rx] predniSONE 10 mg PO DAILY #4 tab 03/27/17 [Rx] Follow up Appointment(s)/Referral(s): Wiley Dee MD [STAFF PHYSICIAN] - 1 Week Herman Medina MD [STAFF PHYSICIAN] - 04/02/17 Yahaira Kessler DO [Primary Care Provider] - 1 Week Piero June MD [STAFF PHYSICIAN] - 1 Week [facility]iting Nurse, [NON-STAFF] - Activity/Diet/Wound Care/Special Instructions: Diet: cardiac Activity: as tolerated nebulizer and O2 ordered from [facility] Discharge Disposition: HOME WITH HOME HEALTH SERVICES
[2017-03-27 15:07] LABS: Glucose,Whole Blood 157 mg/dL (75-99)
[2017-03-27 16:34] VITALS: PULSE 94
[2017-03-27 16:50] LABS: Glucose,Whole Blood 82 mg/dL (75-99)
[2017-03-27] MEDS: NICOTINE 14MG/24HR PATCH TRANSDERM SCH (17:39)
[2017-03-27 18:03] VITALS: BP 164/80; TEMP 97
== END 2017-03-27 19:05 | disposition home health service (06) | DRG 180 ==
LOC: EC 11:24 → INTOOBSV 13:54 → 6SEL 13:54 → OBSVTOIN 03-18 08:33 → 6ICU 03-20 10:10 → 6SEL 03-24 02:45
PROVIDERS: ADMIT Internal Medicine; ATTEND Internal Medicine
PROC: 0BBK3ZX Excision of Right Lung, Percutaneous Approach, Diagnostic (ICD-10-PCS; principal; 2017-03-19)
PROC: 0W9930Z Drainage of Right Pleural Cavity with Drainage Device, Percutaneous Approach (ICD-10-PCS; 2017-03-19)
DX: C34.11 Malignant neoplasm of upper lobe, right bronchus or lung (principal); J96.01 Acute respiratory failure with hypoxia; R64 Cachexia; B37.0 Candidal stomatitis; J44.0 Chronic obstructive pulmonary disease with (acute) lower respiratory infection; E44.1 Mild protein-calorie malnutrition; I71.2 Thoracic aortic aneurysm, without rupture; I48.91 Unspecified atrial fibrillation; E86.0 Dehydration; I10 Essential (primary) hypertension; J95.811 Postprocedural pneumothorax; J44.1 Chronic obstructive pulmonary disease with (acute) exacerbation; M41.9 Scoliosis, unspecified; J20.9 Acute bronchitis, unspecified; F17.210 Nicotine dependence, cigarettes, uncomplicated; T81.82XA Emphysema (subcutaneous) resulting from a procedure, initial encounter; J45.909 Unspecified asthma, uncomplicated; E78.5 Hyperlipidemia, unspecified; M51.36 Other intervertebral disc degeneration, lumbar region; G89.29 Other chronic pain; B19.20 Unspecified viral hepatitis C without hepatic coma; M54.5 Low back pain; M19.91 Primary osteoarthritis, unspecified site; M06.9 Rheumatoid arthritis, unspecified; Z88.0 Allergy status to penicillin; Z98.1 Arthrodesis status; Z88.1 Allergy status to other antibiotic agents; Z79.899 Other long term (current) drug therapy; Z79.891 Long term (current) use of opiate analgesic; Z86.73 Personal history of transient ischemic attack (TIA), and cerebral infarction without residual deficits; Y84.8 Other medical procedures as the cause of abnormal reaction of the patient, or of later complication, without mention of misadventure at the time of the procedure; Y92.238 Other place in hospital as the place of occurrence of the external cause
CPT/HCPCS: 10022; 32551; 36415; 70460; 71010; 71020; 72100; 77012; 80053; 82550; 82553; 83735; 83880; 84100; 84484; 85025; 85379; 85610; 85730; 86803; 87522; 88305; 93005; 94640; 94760; 96361; 96365; 96375; 99291

== ENCOUNTER → 2017-03-28 | Outpatient (CLI) | payer MEDICARE, OTHER | END | disposition home or self-care (01) | LOC: RADPETMAIN 11:44 | PROVIDERS: ATTEND Internal Medicine Hematology & Oncology | DX: Z53.9 Procedure and treatment not carried out, unspecified reason (principal) ==

== ENCOUNTER → 2017-04-04 | Outpatient (CLI) | payer MEDICARE, OTHER ==
--- NOTE | 2017-04-06 09:38 | PE ---
EXAMINATION TYPE: PET CT fusion skull to thigh DATE OF EXAM: 04/04/2017 10:09 AM COMPARISON: CT chest March 11, 2017. CT aorta January 01, 2017. HISTORY: Lung cancer right-sided initial staging study TECHNIQUE: Following the intravenous administration of 13.326 mCi of F-18 FDG, whole body images are performed from the skull base to the midthigh. Images are reviewed on the computer in the coronal, axial, and sagittal planes. Reconstructed rotating images are created on independent workstation and reviewed on the computer. A localization and attenuation correction CT is performed in conjunction with the PET scan. SCAN: Initial Scan FINDINGS: SKULL BASE AND NECK: No suspicious hypermetabolic uptake is seen in the neck. CHEST, MEDIASTINUM, AND HILAR REGION: Severe bilateral emphysematous change is present. In the inferi or right upper lobe laterally there is redemonstration of hypermetabolic mass measuring 2.7 x 2.6 cm on axial image 86 increase in size from prior CT, max SUV is 10.36. This appears to abuts the pleural surface. Some linear scarring or atelectasis in both lung bases is present. No additional areas of a bnormal hypermetabolic uptake or suspicious masses are identified. ABDOMEN AND PELVIS: No suspicious areas of hypermetabolic uptake are seen in the abdomen or pelvis. N ormal excretion in the collecting systems and bladder is present. OSSEOUS STRUCTURES: No suspicious hypermetabolic uptake is seen in osseous structures. OTHER CT: There is extensive subcutaneous emphysema from the lower neck posterior region through the thorax extending into the abdomen and pelvis into the bilateral labia. Finding was present on recent x-rays after CT-guided biopsy March 19. No pneumothorax noted on current study. Coronary artery calcification is present which is noted marker for coronary artery disease. There is mild/moderate atherosclerotic change of an ectatic aorta. There are several areas of aneurys mal change redemonstrated. Descending thoracic aorta midsegment subcarinal level on axial image 87 me asures up to 4.4 cm transversely. Ectatic descending distal thoracic aorta measures up to 4.6 cm in d iameter on axial image 113 just above hemidiaphragm. Calcified atrophic pancreas is consistent with product of chronic pancreatitis. Patient has very little intra-abdominal fat making evaluation of abdomen and pelvis suboptimal. There are metallic clips causing streak artifact in the left lower quadrant and pelvis redemonstrated . There is S-shaped scoliosis. There is multilevel spurring in the spine. There is anterior fusion plat e in the cervical spine. There is prominent disc space narrowing with sclerosis and spurring at sever al levels in the mid lumbar spine. IMPRESSION: Abnormal hypermetabolic uptake right midlung lateral mass corresponds to level of biopsy- proven malignancy. No metastatic adenopathy or disease noted. TNM STAGING T2(visc. pleura involvement),N0, M0 AJCC STAGING Stage 1
== END | disposition home or self-care (01) ==
LOC: RADPETMAIN 08:08
PROVIDERS: ATTEND Internal Medicine Hematology & Oncology
DX: C34.90 Malignant neoplasm of unspecified part of unspecified bronchus or lung (principal); R91.8 Other nonspecific abnormal finding of lung field
CPT/HCPCS: 78815; A9552

== ENCOUNTER → 2017-07-18 | Outpatient (CLI) | payer MEDICARE, OTHER ==
--- NOTE | 2017-07-19 14:02 | PE ---
EXAMINATION TYPE: PET CT fusion skull to thigh DATE OF EXAM: 07/18/2017 COMPARISON: 04/23/2017 Prior PET/CT: 04/04/2017 HISTORY: Lung cancer right lung TECHNIQUE: Following the intravenous administration of 13.70 mCi of F-18 FDG, whole body images are performed from the skull base to the midthigh. Images are reviewed on the computer in the coronal, a xial, and sagittal planes. Reconstructed rotating images are created on independent workstation and reviewed on the computer. A localization and attenuation correction CT is performed in conjunction with the PET scan. DLP: 177.07 mGycm SCAN: Subsequent follow-up Blood glucose: 69 mg/dL Average Mediastinum SUV: 1.1 Average Liver SUV: 1.3 FINDINGS: NECK: Suspicious uptake is not identified. Postsurgical inflammatory changes from anterior cervical fusion is likely present. THORAX: Suspicious uptake not identified. There is reidentification of the peripheral right mid lung nodule. This has an SUV value of 0.8. Suspicious uptake is not identified. No suspicious uptake kathy cent to the ascending thoracic aorta is evident SUV value of 0.8. PET image 72. ABDOMEN: No abnormal uptake. Note is made of some uptake within the right paraspinal muscles. PELVIS: No abnormal uptake OSSEOUS STRUCTURES: No suspicious uptake LOCALIZATION CT: The ascending thoracic aorta at the level of main pulmonary artery is 3.7 cm. The ma in pulmonary artery the bifurcation is 2.8 cm. The descending thoracic aorta at the level of seven is 3.9 cm. Vascular calcifications within the aorta. Hiatal hernia is present. There is enlarged desc ending thoracic aorta near the level of the diaphragm the transverse dimension 4.9 cm. The aorta is t ortuous. COMPARISON: CT thorax 04/23/2017, the lung mass has diminished in size. The previous abnormal uptake wi thin the lateral right chest mass has diminished in radiotracer accumulation. IMPRESSION: 1. Previous peripheral right lung mass has diminished in size in the SUV values currently 0.8.. This is diminished from in size from comparison PET/CT and radiation planning CT studies.
== END | disposition home or self-care (01) ==
LOC: RADPETMAIN 09:58
PROVIDERS: ATTEND Radiology Radiation Oncology
DX: C34.11 Malignant neoplasm of upper lobe, right bronchus or lung (principal); R91.8 Other nonspecific abnormal finding of lung field
CPT/HCPCS: 78815; A9552